=== PATIENT | female | born 1985 | race African-American/Black ===

== ENCOUNTER 2017-10-13 00:25 | Emergency (ER) | payer OTHER ==
[~2017-10-13] VITALS: Ht 157.5 cm; Wt 77.1 kg
[~2017-10-13 00:25] MED LIST: ACCUNEB SO1.25 MG/1; ACETAMINOPHEN-1 EAC1; AMOXICILLIN 50500 MG PO; AZITHROMYCIN 2250 MG PO; BACTRIM DS TAB1 EACH PO; DIFLUCAN150 MG PO; DOXYCYCLINE 10100 MG PO; ERY-TAB500 MG PO; EXCEDRIN SINUS1 EAC2; FLEXERIL PO; IBUPROFEN 200200 M1; IBUPROFEN 600600 M1 PO; IBUPROFEN 800800 M1 PO; IBUPROFEN 800800 MG PO; LIDODERM 5%1 PATCH TOP; LORTAB 5 MG/5001 TAB PO; MEDROLDOSEPACK PO; NAPROSYN500 MG PO; NOHOMEMEDICATIONS; NORCO 10-325 T1 EACH PO; NORCO 5-325 TA1 EACH PO; NORFLEX100 MG PO; PENICILLIN V P500 MG PO; PENICILLIN VK250 MG PO; PENICILLIN VK500 M1 PO; PERCOCET 5-3251 EACH PO; PERCOCET 7.5-51 EACH PO; PROAIR HFA8.5 GM IH; SUMYCIN 500500 MG PO; TESSALON200 MG PO; ZANTAC 150MG T150 M1 PO; ZPAK PO
[2017-10-13] MEDS ORDERED: BACTRIM DS TAB1 EACH PO (00:38)
[2017-10-13] MEDS ORDERED: LIORESAL 10 MG10 MG PO (00:39)
[2017-10-13] MEDS ORDERED: NORTRIPTYLINE H10 M1 (00:39)
[2017-10-13] MEDS ORDERED: GABAPENTIN 100100 MG PO (00:40)
[2017-10-13] MEDS ORDERED: AUGMENTIN 500-1 EACH PO (01:15)
[2017-10-13] MEDS ORDERED: PERCOCET PO (01:15)
[2017-10-13 02:07] VITALS: BP 151/94
== END 2017-10-13 02:19 | disposition home or self-care (01) ==
LOC: ER 00:25
DX: N39.0 Urinary tract infection, site not specified (principal); G89.29 Other chronic pain; M54.9 Dorsalgia, unspecified; T83.518A Infection and inflammatory reaction due to other urinary catheter, initial encounter; J45.909 Unspecified asthma, uncomplicated; F17.210 Nicotine dependence, cigarettes, uncomplicated; Z88.1 Allergy status to other antibiotic agents; Z88.6 Allergy status to analgesic agent; Y84.8 Other medical procedures as the cause of abnormal reaction of the patient, or of later complication, without mention of misadventure at the time of the procedure; Y92.89 Other specified places as the place of occurrence of the external cause

== ENCOUNTER 2017-11-27 16:48 | Inpatient (IN) | payer OTHER ==
[~2017-11-27] VITALS: Ht 157.5 cm; Wt 71.8 kg
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
[~2017-11-27 16:48] MED LIST changes: +AUGMENTIN 500-1 EACH PO; +GABAPENTIN 100100 MG PO; +LIORESAL 10 MG10 MG PO; +NORTRIPTYLINE H10 M1; +PERCOCET PO
[2017-11-27 17:59] LABS: URINE BILIRUBIN 1+ (Negative); URINE BLOOD TRACE (Negative); URINE CLARITY CLOUDY; URINE COLOR YELLOW; URINE GLUCOSE-RANDOM* NEGATIVE (Negative); URINE KETONES 3+ (Negative); URINE PROTEIN (DIPSTICK) 2+ (Negative)
[2017-11-27 18:02] LABS: ABSOLUTE NEUTROPHILS 3.4 thou/uL (1.4-8.2); BASOPHILS 0.9 % (0.0-2.0); EOSINOPHILS 0.9 % (0.0-3.0); HEMATOCRIT 42.7 % (37.0-47.0); HEMOGLOBIN 14.4 gm/dL (12.0-15.0); LYMPHOCYTES 36.8 % (24.0-44.0); MCH 30.6 pg (26.0-34.0); MCHC 33.7 g/dL (28.0-37.0); MCV 90.9 fL (80.0-100.0); MONOCYTES 6.7 % (1.0-8.0); PLATELET COUNT 293 thou/uL (150-400); POLYS 54.7 % (36.0-66.0); RDW 14.9 % (10.5-14.5); WBC 6.2 thou/uL (4.0-11.0)
[2017-11-27] MEDS ORDERED: VITAMIN D250000 UNIT PO (18:02)
[2017-11-27] MEDS ORDERED: CYMBALTA60 MG PO (18:02)
[2017-11-27 18:05] LABS: URINE LEUKOCYTES-REFLEX 3+ (Negative); URINE NITRITE-REFLEX POSITIVE (Negative)
[2017-11-27 18:06] LABS: ICTOTEST (BILI CONFIRMATORY) Negative (Negative)
[2017-11-27] MEDS ORDERED: WELLBUTRIN SR150 MG PO (18:06)
[2017-11-27 18:07] LABS: BACTERIA-REFLEX >30 Many /HPF (None Seen); CASTS None Seen /LPF (None Seen); SQUAMOUS None Seen /LPF (0-3); URINE RBC None Seen /HPF (0-2); URINE WBC-REFLEX >25 Many /HPF (0-5)
[2017-11-27] MEDS ORDERED: FLEXERIL PO (18:08)
[2017-11-27 18:11] LABS: CALCIUM 8.8 mg/dL (8.5-10.1); CREATININE 0.5 mg/dL (0.6-1.0)
[2017-11-27 18:14] LABS: AMP/METHAMP Negative (Negative); BARBITURATES Negative (Negative); BENZODIAZEPINES POSITIVE (Negative); COCAINE Negative (Negative); METHADONE Negative (Negative); OPIATES Negative (Negative); PCP Negative (Negative)
[2017-11-27 18:16] LABS: TRIPLE PHOSPHATE CRYSTALS >10 Many /LPF (None Seen)
[2017-11-27 18:18] LABS: ALBUMIN 3.8 g/dL (3.4-5.0); TOTAL BILIRUBIN 0.7 mg/dL (<0.1-1.0)
[2017-11-27 21:12] VITALS: BP 104/72
[2017-11-27 21:33] VITALS: BP 139/90
[2017-11-28 00:17] VITALS: BP 105/72
[2017-11-28 03:14] VITALS: BP 107/77
[2017-11-28 04:04] LABS: CALCIUM 8.3 mg/dL (8.5-10.1); CREATININE 0.4 mg/dL (0.6-1.0)
[2017-11-28 04:13] LABS: POTASSIUM 2.9 mmol/L (3.5-5.1)
[2017-11-28 17:58] VITALS: BP 106/74
[2017-11-28 20:00] VITALS: BP 124/83
[2017-11-29 04:16] VITALS: BP 139/100
[2017-11-29 05:04] LABS: HEMATOCRIT 38.8 % (37.0-47.0); HEMOGLOBIN 12.6 gm/dL (12.0-15.0); MCH 29.8 pg (26.0-34.0); MCHC 32.4 g/dL (28.0-37.0); RBC 4.21 mil/uL (4.20-5.00); RDW 14.6 % (10.5-14.5); WBC 4.6 thou/uL (4.0-11.0)
[2017-11-29 05:24] LABS: ALBUMIN 2.9 g/dL (3.4-5.0); CALCIUM 8.2 mg/dL (8.5-10.1); CREATININE 0.6 mg/dL (0.6-1.0); POTASSIUM 3.7 mmol/L (3.5-5.1); TOTAL BILIRUBIN 0.3 mg/dL (<0.1-1.0); TOTAL PROTEIN 7.5 g/dL (6.4-8.2)
[2017-11-29 06:55] VITALS: BP 124/70
[2017-11-29 15:15] VITALS: BP 112/68
[2017-11-29 20:00] VITALS: BP 132/94; BP 134/103
[2017-11-30 01:00] VITALS: BP 132/94
[2017-11-30 03:46] VITALS: BP 142/102
[2017-11-30 05:43] LABS: HEMATOCRIT 36.1 % (37.0-47.0); HEMOGLOBIN 11.9 gm/dL (12.0-15.0); MCH 30.4 pg (26.0-34.0); RBC 3.93 mil/uL (4.20-5.00); RDW 14.5 % (10.5-14.5); WBC 3.9 thou/uL (4.0-11.0)
[2017-11-30 06:06] LABS: ALBUMIN 2.7 g/dL (3.4-5.0); CALCIUM 7.9 mg/dL (8.5-10.1); CREATININE 0.3 mg/dL (0.6-1.0); POTASSIUM 3.7 mmol/L (3.5-5.1); TOTAL BILIRUBIN 0.3 mg/dL (<0.1-1.0); TOTAL PROTEIN 6.3 g/dL (6.4-8.2)
[2017-11-30 07:34] VITALS: BP 132/97
[2017-11-30 15:55] VITALS: BP 121/83
[2017-11-30 19:00] VITALS: BP 109/88
[2017-12-01 04:13] VITALS: BP 130/87
[2017-12-01 04:39] LABS: CALCIUM 8.5 mg/dL (8.5-10.1); CREATININE 0.5 mg/dL (0.6-1.0); MAGNESIUM 2.2 mg/dL (1.8-2.4); POTASSIUM 3.5 mmol/L (3.5-5.1)
[2017-12-01 04:48] LABS: ABSOLUTE NEUTROPHILS 1.8 thou/uL (1.4-8.2); BASOPHILS 0.4 % (0.0-2.0); EOSINOPHILS 1.9 % (0.0-3.0); HEMATOCRIT 35.4 % (37.0-47.0); HEMOGLOBIN 11.6 gm/dL (12.0-15.0); LYMPHOCYTES 45.8 % (24.0-44.0); MCH 30.3 pg (26.0-34.0); MCHC 32.8 g/dL (28.0-37.0); MCV 92.4 fL (80.0-100.0); MONOCYTES 8.5 % (1.0-8.0); PLATELET COUNT 209 thou/uL (150-400); POLYS 43.4 % (36.0-66.0); RBC 3.83 mil/uL (4.20-5.00); RDW 14.4 % (10.5-14.5); WBC 4.1 thou/uL (4.0-11.0)
[2017-12-01 06:35] LABS: LARGE PLATELETS FEW
[2017-12-01 08:59] VITALS: BP 123/85
[2017-12-01 18:18] VITALS: BP 140/113
[2017-12-01 18:19] VITALS: BP 158/117
[2017-12-01 18:58] VITALS: BP 136/92
[2017-12-01 19:15] VITALS: BP 143/87
[2017-12-02 04:00] VITALS: BP 123/82
[2017-12-02 08:32] VITALS: BP 120/86
[2017-12-02 19:14] VITALS: BP 103/71
[2017-12-03 03:35] VITALS: BP 112/80
[2017-12-03 04:14] LABS: ABSOLUTE NEUTROPHILS 2.3 thou/uL (1.4-8.2); EOSINOPHILS 2.8 % (0.0-3.0); HEMATOCRIT 40.6 % (37.0-47.0); HEMOGLOBIN 13.3 gm/dL (12.0-15.0); MCH 30.3 pg (26.0-34.0); MCHC 32.8 g/dL (28.0-37.0); MCV 92.3 fL (80.0-100.0); MONOCYTES 6.3 % (1.0-8.0); PLATELET COUNT 254 thou/uL (150-400); POLYS 39.9 % (36.0-66.0); RDW 14.7 % (10.5-14.5); WBC 5.9 thou/uL (4.0-11.0)
[2017-12-03 04:26] LABS: CALCIUM 9.1 mg/dL (8.5-10.1); CREATININE 0.6 mg/dL (0.6-1.0); MAGNESIUM 1.7 mg/dL (1.8-2.4); PHOSPHORUS 5.5 mg/dL (2.5-4.9); POTASSIUM 4.3 mmol/L (3.5-5.1); TOTAL BILIRUBIN 0.3 mg/dL (<0.1-1.0); TOTAL PROTEIN 7.6 g/dL (6.4-8.2)
[2017-12-03 07:59] VITALS: BP 116/83
[2017-12-03 16:33] VITALS: BP 114/82
[2017-12-03 18:54] VITALS: BP 111/75
[2017-12-04 08:22] LABS: ABSOLUTE NEUTROPHILS 3.7 thou/uL (1.4-8.2); BASOPHILS 0.7 % (0.0-2.0); EOSINOPHILS 2.4 % (0.0-3.0); HEMATOCRIT 41.8 % (37.0-47.0); HEMOGLOBIN 13.7 gm/dL (12.0-15.0); LYMPHOCYTES 38.3 % (24.0-44.0); MCH 30.1 pg (26.0-34.0); MCHC 32.8 g/dL (28.0-37.0); MCV 91.5 fL (80.0-100.0); MONOCYTES 7.4 % (1.0-8.0); PLATELET COUNT 269 thou/uL (150-400); POLYS 51.2 % (36.0-66.0); RBC 4.57 mil/uL (4.20-5.00); RDW 14.6 % (10.5-14.5); WBC 7.2 thou/uL (4.0-11.0)
[2017-12-04 08:27] VITALS: BP 114/84
[2017-12-04 08:34] LABS: ALBUMIN 3.1 g/dL (3.4-5.0); CALCIUM 8.6 mg/dL (8.5-10.1); CREATININE 0.5 mg/dL (0.6-1.0); MAGNESIUM 2.2 mg/dL (1.8-2.4); POTASSIUM 4.3 mmol/L (3.5-5.1); TOTAL BILIRUBIN 0.4 mg/dL (<0.1-1.0); TOTAL PROTEIN 8.1 g/dL (6.4-8.2)
[2017-12-04 16:17] VITALS: BP 108/83
[2017-12-04 18:59] VITALS: BP 94/73
[2017-12-05 05:59] VITALS: BP 90/69
[2017-12-05 07:58] VITALS: BP 131/88
[2017-12-05 15:38] VITALS: BP 125/85
[2017-12-05 20:00] VITALS: BP 118/80
[2017-12-06 04:30] VITALS: BP 111/77
[2017-12-06 06:55] LABS: ABSOLUTE NEUTROPHILS 2.5 thou/uL (1.4-8.2); BASOPHILS 0.6 % (0.0-2.0); EOSINOPHILS 2.5 % (0.0-3.0); HEMATOCRIT 41.1 % (37.0-47.0); HEMOGLOBIN 13.6 gm/dL (12.0-15.0); LYMPHOCYTES 47.7 % (24.0-44.0); MCH 30.6 pg (26.0-34.0); MCHC 33.1 g/dL (28.0-37.0); MCV 92.3 fL (80.0-100.0); MONOCYTES 7.2 % (1.0-8.0); PLATELET COUNT 259 thou/uL (150-400); RBC 4.45 mil/uL (4.20-5.00); RDW 14.6 % (10.5-14.5); WBC 5.9 thou/uL (4.0-11.0)
[2017-12-06 07:00] VITALS: BP 115/53
[2017-12-06 07:21] LABS: ALBUMIN 3.2 g/dL (3.4-5.0); CREATININE 0.5 mg/dL (0.6-1.0); MAGNESIUM 2.1 mg/dL (1.8-2.4); POTASSIUM 3.9 mmol/L (3.5-5.1); TOTAL BILIRUBIN 0.4 mg/dL (<0.1-1.0); TOTAL PROTEIN 8.4 g/dL (6.4-8.2)
[2017-12-06 19:40] VITALS: BP 109/81
[2017-12-07 05:30] VITALS: BP 126/88
[2017-12-07 07:00] VITALS: BP 120/86
[2017-12-07 16:29] VITALS: BP 117/79
[2017-12-07 19:04] VITALS: BP 122/78
[2017-12-08 04:00] VITALS: BP 107/77
[2017-12-08 07:10] VITALS: BP 113/75
[2017-12-08 15:07] VITALS: BP 111/77
[2017-12-08 19:07] VITALS: BP 116/89
[2017-12-09 05:00] VITALS: BP 109/77
[2017-12-09 06:07] LABS: ABSOLUTE NEUTROPHILS 2.1 thou/uL (1.4-8.2); BASOPHILS 0.7 % (0.0-2.0); EOSINOPHILS 2.4 % (0.0-3.0); HEMATOCRIT 35.4 % (37.0-47.0); HEMOGLOBIN 11.8 gm/dL (12.0-15.0); LYMPHOCYTES 44.4 % (24.0-44.0); MCH 30.4 pg (26.0-34.0); MCHC 33.2 g/dL (28.0-37.0); MCV 91.6 fL (80.0-100.0); MONOCYTES 9.3 % (1.0-8.0); PLATELET COUNT 266 thou/uL (150-400); POLYS 43.2 % (36.0-66.0); RBC 3.87 mil/uL (4.20-5.00); RDW 14.3 % (10.5-14.5); WBC 4.9 thou/uL (4.0-11.0)
[2017-12-09 06:22] LABS: ANION GAP 10 mmol/L (7-16); BUN < 1 mg/dL (7-18); CALCIUM 8.8 mg/dL (8.5-10.1); CHLORIDE 103 mmol/L (98-107); CO2 25 mmol/L (21-32); CREATININE 0.4 mg/dL (0.6-1.0); GLUCOSE 97 mg/dL (74-106); POTASSIUM 3.7 mmol/L (3.5-5.1); SODIUM 138 mmol/L (136-145)
[2017-12-09 07:02] VITALS: BP 114/73
[2017-12-09] MEDS ORDERED: CYMBALTA30 MG PO (14:55)
[2017-12-09] MEDS ORDERED: B-12 DOTS500 MCG PO (14:55)
[2017-12-09] MEDS ORDERED: BANOPHEN25 M1 PO (14:55)
[2017-12-09] MEDS ORDERED: GABAPENTIN 100100 MG PO (14:55)
[2017-12-09] MEDS ORDERED: LOPERAMIDE 2 MG2 M1 PO (14:55)
[2017-12-09] MEDS ORDERED: TUMS PO (14:55)
[2017-12-09] MEDS ORDERED: PERCOCET PO (14:55)
[2017-12-09] MEDS ORDERED: MELATONIN5 M1 PO (14:55)
[2017-12-09] MEDS ORDERED: OXYCODONE HCL10 MG PO (14:55)
[2017-12-09] MEDS ORDERED: MAG6464 MG PO (14:55)
[2017-12-09] MEDS ORDERED: FIRVANQ50 MG/1 ML PO (14:55)
[2017-12-09 14:58] VITALS: BP 125/79
== END 2017-12-09 18:38 | DRG 871 ==
LOC: ER 16:48 → EROBS 19:31 → 4E 19:31
PROVIDERS: Emergency Medicine; Hospitalist; Nurse Practitioner Family
DX: A41.9 Sepsis, unspecified organism (principal); E43 Unspecified severe protein-calorie malnutrition; T83.510A Infection and inflammatory reaction due to cystostomy catheter, initial encounter; A04.72 Enterocolitis due to Clostridium difficile, not specified as recurrent; K59.2 Neurogenic bowel, not elsewhere classified; T43.012A Poisoning by tricyclic antidepressants, intentional self-harm, initial encounter; N30.90 Cystitis, unspecified without hematuria; J45.909 Unspecified asthma, uncomplicated; Y83.8 Other surgical procedures as the cause of abnormal reaction of the patient, or of later complication, without mention of misadventure at the time of the procedure; F17.210 Nicotine dependence, cigarettes, uncomplicated; N31.9 Neuromuscular dysfunction of bladder, unspecified; E87.6 Hypokalemia; E53.8 Deficiency of other specified B group vitamins; G89.29 Other chronic pain; M54.9 Dorsalgia, unspecified; F43.23 Adjustment disorder with mixed anxiety and depressed mood; K59.03 Drug induced constipation; T40.605A Adverse effect of unspecified narcotics, initial encounter; Z87.828 Personal history of other (healed) physical injury and trauma; Z86.14 Personal history of Methicillin resistant Staphylococcus aureus infection; Z89.511 Acquired absence of right leg below knee; Z87.81 Personal history of (healed) traumatic fracture; Z79.899 Other long term (current) drug therapy; Z88.1 Allergy status to other antibiotic agents; Z88.8 Allergy status to other drugs, medicaments and biological substances; Y92.89 Other specified places as the place of occurrence of the external cause
CPT/HCPCS: 10084

== ENCOUNTER 2017-12-27 00:12 | Emergency (ER) | payer OTHER ==
[~2017-12-27] VITALS: Ht 157.5 cm; Wt 77.1 kg
[~2017-12-27 00:12] MED LIST changes: +B-12 DOTS500 MCG PO; +BANOPHEN25 M1 PO; +CYMBALTA30 MG PO; +CYMBALTA60 MG PO; +FIRVANQ50 MG/1 ML PO; +LOPERAMIDE 2 MG2 M1 PO; +MAG6464 MG PO; +MELATONIN5 M1 PO; +OXYCODONE HCL10 MG PO; +TUMS PO; +VITAMIN D250000 UNIT PO; +WELLBUTRIN SR150 MG PO
[2017-12-27 01:46] LABS: HEMATOCRIT 37.2 % (37.0-47.0); HEMOGLOBIN 12.3 gm/dL (12.0-15.0); MCH 30.2 pg (26.0-34.0); MCV 91.7 fL (80.0-100.0); RBC 4.06 mil/uL (4.20-5.00); RDW 14.4 % (10.5-14.5); WBC 6.9 thou/uL (4.0-11.0)
[2017-12-27 01:54] LABS: CALCIUM 8.9 mg/dL (8.5-10.1); CREATININE 0.4 mg/dL (0.6-1.0); POTASSIUM 4.2 mmol/L (3.5-5.1)
[2017-12-27 02:48] LABS: URINE BILIRUBIN NEGATIVE (Negative); URINE BLOOD 3+ (Negative); URINE CLARITY SL CLOUDY; URINE COLOR YELLOW; URINE GLUCOSE-RANDOM* NEGATIVE (Negative); URINE KETONES NEGATIVE (Negative); URINE LEUKOCYTES 3+ (Negative); URINE NITRITE POSITIVE (Negative); URINE PROTEIN (DIPSTICK) TRACE (Negative); URINE UROBILINOGEN 0.2 E.U./dl (0.2-1.0)
[2017-12-27 03:04] LABS: CASTS None Seen /LPF (None Seen); CRYSTALS None Seen /LPF (None Seen); MUCUS 4-6 Moderate strn/LPF (None Seen); SQUAMOUS 0-3 Few /LPF (0-3); URINE RBC >20 Many /HPF (0-2); URINE WBC >25 Many /HPF (0-5); WBC CLUMPS Few (None Seen)
== END 2017-12-27 00:52 | disposition home or self-care (01) ==
LOC: ER 00:12
PROVIDERS: Emergency Medicine
DX: T83.098A Other mechanical complication of other urinary catheter, initial encounter (principal); M54.9 Dorsalgia, unspecified; G89.4 Chronic pain syndrome; F17.210 Nicotine dependence, cigarettes, uncomplicated; J45.909 Unspecified asthma, uncomplicated; F32.9 Major depressive disorder, single episode, unspecified; Z88.6 Allergy status to analgesic agent; Z88.1 Allergy status to other antibiotic agents; Y84.6 Urinary catheterization as the cause of abnormal reaction of the patient, or of later complication, without mention of misadventure at the time of the procedure; Y92.89 Other specified places as the place of occurrence of the external cause

== ENCOUNTER 2018-06-24 03:06 | Inpatient (IN) | payer OTHER ==
[~2018-06-24] VITALS: Ht 157.5 cm; Wt 88.9 kg
[2018-06-24] VITALS (8 sets, daily range): BP systolic 87–126; BP diastolic 51–80
[2018-06-24] MEDS ORDERED: BENADRYL25 MG PO (03:17)
[2018-06-24] MEDS ORDERED: DIPHENHIST50 MG PO (03:18)
[2018-06-24] MEDS ORDERED: UNICOMPLEX M TA1 TA1 PO (03:19)
[2018-06-24] MEDS ORDERED: NEURONTIN 400400 M1 PO (03:19)
[2018-06-24] MEDS ORDERED: NYAMYC15 GM TOP (03:20)
[2018-06-24] MEDS ORDERED: OXYCODONE HCL10 MG PO (03:21)
[2018-06-24] MEDS ORDERED: MIRALAX17 GM PO (03:21)
[2018-06-24] MEDS ORDERED: TYLENOL EXTRA500 MG PO (03:22)
[2018-06-24] MEDS ORDERED: VITAMIN D3400 UNIT PO (03:23)
[2018-06-24] MEDS ORDERED: UNGUENTINE OINT28 GM TOP (03:24)
[2018-06-24] MEDS ORDERED: AMBIEN 5 MG TABL5 M1 PO (03:24)
[2018-06-24 03:44] LABS: HEMATOCRIT 39.2 % (37.0-47.0); MCH 28.9 pg (26.0-34.0); MCHC 33.2 g/dL (28.0-37.0); MCV 86.8 fL (80.0-100.0); PLATELET COUNT 241 thou/uL (150-400); RBC 4.51 mil/uL (4.20-5.00); RDW 14.4 % (10.5-14.5); WBC 13.7 thou/uL (4.0-11.0)
[2018-06-24 03:52] LABS: CALCIUM 8.7 mg/dL (8.5-10.1); CREATININE 0.5 mg/dL (0.6-1.0); POTASSIUM 3.6 mmol/L (3.5-5.1)
[2018-06-24 03:58] LABS: ALBUMIN 2.8 g/dL (3.4-5.0); TOTAL BILIRUBIN 1.7 mg/dL (<0.1-1.0); TOTAL PROTEIN 8.7 g/dL (6.4-8.2)
[2018-06-24 04:26] LABS: URINE BILIRUBIN 2+ (Negative); URINE BLOOD TRACE (Negative); URINE CLARITY CLEAR; URINE COLOR YELLOW; URINE GLUCOSE-RANDOM* TRACE (Negative); URINE KETONES TRACE (Negative); URINE NITRITE-REFLEX POSITIVE (Negative); URINE PROTEIN (DIPSTICK) 2+ (Negative)
[2018-06-24 04:27] LABS: URINE LEUKOCYTES-REFLEX 3+ (Negative)
[2018-06-24 04:42] LABS: SQUAMOUS 0-3 Few /LPF (0-3); WBC CLUMPS Many (None Seen)
[2018-06-24 04:43] LABS: BACTERIA-REFLEX >30 Many /HPF (None Seen); MUCUS 0-3 Light strn/LPF (None Seen); TRIPLE PHOSPHATE CRYSTALS >10 Many /LPF (None Seen); URINE RBC 0-2 Rare /HPF (0-2)
[2018-06-24 04:56] LABS: ABSOLUTE NEUTROPHILS 11.4 thou/uL (1.4-8.2)
[2018-06-24 04:57] LABS: LARGE PLATELETS FEW; PLATELET ESTIMATE NORMAL; POLYCHROMASIA 1+
--- NOTE | 2018-06-24 05:40 | NUR ---
NOTIFIED NURSEJOCELINE AT NURSING FACILITY THAT PATIENT WILL BE ADMITTED
[2018-06-24] MEDS ORDERED: TUMS PO (06:16)
--- NOTE | 2018-06-24 07:42 | NUR ---
PT ADMITTED FROM ED WITH UTI AND SEPSIS.ARRIVED TO UNIT VIA CART.PT A.OX4 SEEMS VERY DROWSY BUT EASY TO AROUSE,RESPONDS TO COMMANDS APPROPRIATELY.VSS.IVF AND ABT INFUSING PER ORDERS.PT ORIENTED TO RM AND UNIT ACTIVITIES.MEDS RECONCILLED.ENVIRONMENTAL CONSULTANT HERE TO SEE THE PT.WILL CONT TO MONITOR PER ORDERS.
--- NOTE | 2018-06-24 17:04 | NUR ---
Case opened for dc planning. Pt is a ltc resident at [facility]. They are holding her bed and can accept her for readmission when medically stable. 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 She is being seen by wound care. Will check with the SNF to see if she needs therapy evals and has any skilled medicare days upon her return.
--- NOTE | 2018-06-24 18:23 | NUR ---
PT CARE ASSUMED APPROX 0700. PT ALERT AND ORIENTED X4. DENIES SOA. C/O LOWER BACK PAIN 11/17 INTERMITTENTLY THIS SHIFT. PAIN MANAGED WITH OXY AND FENT GIVEN WITH DRESSING CHANGE AND WOUND PIC. VSS. PT HAS UTI AND IV ABT ON POC. IVF WELL. RIGHT IT WOUND DRESSING CHANGES PER ORDER. PT REQUESTS HELP OFTEN TO REPOSITION. PRESSURE BOOT PLACED. LALM INITIATED. MRI TO BE DONE TOMORROW TO R/O OSTEO. APPETITE POOR. NO DISTRESS NOTED.
--- NOTE | 2018-06-25 03:50 | NUR ---
ASSESSMENT DOCUMENTED.PT RESTING AT THIS TIME IN NAD.A/OX4.VSS.CONT WITH ABT THERAPY,TOLERATING.DRESSING TO WOUND CDI.SINUS TACHY ON MONITOR.PT CONTINUES TO C/O BACK PAINS THAT ARE CONTROLLED WITH PAIN MEDS Q4H.REPOSITIONED IN BED SEVERAL TIMES.PRESSURE BOOTS ON,RAFAT IN PLACE .POC IS TO HAVE MRI DONE TODAY AND CONT WITH CURRENT TX ORDERS.
[2018-06-25 05:30] VITALS: BP 104/60
[2018-06-25 07:46] VITALS: BP 104/64
--- NOTE | 2018-06-25 08:22 | NUR ---
WOUND CONSULT: PT. WAS SEEN ON 06/24/[address] MAXWELL AND MYSELF. PT. HAS STAGE 4 PRESSURE ULCER TO HER RIGHT ISCHIAL TUBEROSITY. WOUND HAS A FOUL ODOR NOTED WITH SIGNS AND SYMPTOMS OF INFECTION PRESENT. DR. MAXWELL DISCUSSED TREATMENT OPTIONS WITH PT. REGARDING IV ANTIBOTICS, OFFLOADING, TOPICAL WOUND CARE AND SURGICAL DEBRIDEMENT. PT. WAS AGREEABLE. RECOMMENDATIONS: WOUND CARE TO RIGHT ISCHIAL TUBEROSITY: GENTLY CLEANSE AREA WITH WOUND CLEANSER OR NORMAL SALINE, PACK WITH DAKIN MOIST KERLIX, COVER WITH ABD, SECURE WITH TAPE, COMPLETE CARES BID. TURN Q2 HOURS KEEP PT. OFF WOUNDS MUCH POSSIBLE KEEP ON RAFAT MATRESS. PT. AND STAFF NURSE WERE INSTRUCTED ON PLAN OF CARE.
[2018-06-25 10:57] VITALS: BP 93/60
--- NOTE | 2018-06-25 11:20 | NUR ---
Nutrition: pt admit with UTI, sepsis, hx paraplegia. Consult due to stage 4 pressure ulcer right ischium/buttock. Reports appetite is fair and states she "is picky". Obtained food preferences and assisted to order lunch. Pt should be able to order meals from here on. No weight loss. Reviewed protein needs and adequate nutrition for wound healing. Pt agrees to Jesse BID. Place as low nutrition risk for now.
--- NOTE | 2018-06-25 12:15 | NUR ---
[facility] car[facility] called back and reports that the pt does have skilled medicare days available for the pt's return. Will check for therapy evals and await wound care recommendations. MRI pending to r/o osteo. Pt may be an ltac candidate as well pending her plan of care.
--- NOTE | 2018-06-25 13:52 | NUR ---
FAXED PT/OT AND WOUND CARE NOTES TO MIS MCCONNELL AT [facility]. SHE RECEIVED UPDATES. DCP TO FOLLOW.
--- NOTE | 2018-06-25 16:50 | NUR ---
WOUND FOLLOW UP: PT. WAS SEEN TODAY BY DR. MAXWELL AND MYSELF. PT. WOUND IS NON-CHANGING AT THIS TIME. AWAITING SUGICAL INTERVENTION. RECOMMENDATIONS: CONTINUE WITH CURRENT PLAN OF CARE. PT. AND STAFF NURSE WERE INSTRUCTED ON PLAN OF CARE.
[2018-06-25 17:26] VITALS: BP 102/63
--- NOTE | 2018-06-25 18:19 | NUR ---
PT CARE ASSUMED APPROX 0700. PT ALERT AND ORIENTED X4. DENIES SOA. C/O 11/17 PAIN TO LOWER BACK. MANAGING PAIN WITH FENT AND OXY. TURNING PT Q2HRS AND PRN. APPETITE POOR. EDUCATED ON NUTRITION AND WOUNDS. PIVs INFILTRATED X2. PICC LINE ORDER OBTAINED. VANCO AND PIPERCILLIN REMAIN TO POC. TROUGH LOW. PHARMACY NOTIFIED. NO DISTRESS NOTED. VSS.
--- NOTE | 2018-06-25 18:44 | NUR ---
SPC CATH CHANGED OUT FOR SAME BERMUDIAN AND BALLOON SIZE. NO ISSUES DURING PLACEMENT.
[2018-06-25 19:49] VITALS: BP 105/57
--- NOTE | 2018-06-25 21:42 | NUR ---
VASCULAR ACCESS CONSULTED FOR A PICC FOR YANN AND LUCIO, PT CONSENTED AND LINE PLACED PER HOSP P&P, SEE INSERTION NI FOR DETAILS
[2018-06-26 04:18] VITALS: BP 104/72
--- NOTE | 2018-06-26 05:17 | NUR ---
ASSESSMENTS CHARTED. PICC LINE WAS PLACED AT START OF SHIFT SINGLE LUMEN INR RIGHT UPPER ARM. C/O CHRONIC BACK PAIN DOSED CHARTED. REFUSED SCHEDULED TYLENOL. PLAN OF CARE TO INCLUDE SURGICAL DEBRIDMENT OF WOUND.
[2018-06-26 08:00] VITALS: BP 115/63
[2018-06-26 13:00] VITALS: BP 109/73
[2018-06-26 16:00] VITALS: BP 104/57
--- NOTE | 2018-06-26 17:06 | NUR ---
PT CARE ASSUMED APPROX 0700. PT ALERT AND ORIENTED X4. DENIES SOA. C/O LOWER BACK PAIN 12/18. PAIN MANAGED WITH OXY. VSS. PT IS SELF TURN Q2HRS. UP TO W/C THIS SHIFT. HAD SHOWER. WOUND CARE DONE PER ORDER. THICK WHITE VAGINAL SECRETIONS NOTED. DR FLEMING ORDERED DIFLUCAN. SPC PATENT. POOR APPETITE. NO DISTRESS NOTED.
[2018-06-26 20:30] VITALS: BP 114/71
[2018-06-27] VITALS (7 sets, daily range): BP systolic 105–128; BP diastolic 65–73
--- NOTE | 2018-06-27 04:24 | NUR ---
ASSESSMENTS CHARTED. UA RESULTS CAME BACK. PT POSSITIVE FOR PROVIDENCIA RETTGERI. PLAN OF CARE IS TO HAVE COLOSTOMY SURGERY NEXT WEEK WHICH WILL ALLOW PT TO CONTROL HER OWN CARE AND HELP HER PRESSURE WOUND HEAL.
[2018-06-27 05:19] LABS: HEMATOCRIT 31.5 % (37.0-47.0); HEMOGLOBIN 10.5 gm/dL (12.0-15.0); MCH 29.1 pg (26.0-34.0); MCHC 33.4 g/dL (28.0-37.0); RBC 3.62 mil/uL (4.20-5.00); RDW 14.3 % (10.5-14.5); WBC 6.1 thou/uL (4.0-11.0)
[2018-06-27 05:39] LABS: ALBUMIN 1.7 g/dL (3.4-5.0); CALCIUM 8.5 mg/dL (8.5-10.1); CREATININE 0.3 mg/dL (0.6-1.0); PHOSPHORUS 4.2 mg/dL (2.5-4.9)
[2018-06-27 05:42] LABS: POTASSIUM 2.8 mmol/L (3.5-5.1)
--- NOTE | 2018-06-27 09:05 | NUR ---
PT ASSESSED BY JANICEY AND WILL BE PLACED ON CLEAR LIQUID DIET.
--- NOTE | 2018-06-27 12:41 | NUR ---
ENCOURAGE PT TO TAKE IN MORE PO FOOD. REPLACE POTASSIUM AND WILL RECHECK.
--- NOTE | 2018-06-27 13:23 | NUR ---
DRESSING CHANGED WITH DR. ROBERSON AT BEDSIDE.
--- NOTE | 2018-06-27 19:14 | NUR ---
PT WAS UP TO SIDE OF BED TO TANSFER TO WHEELCHAIR SHE WAS INSITING TO BE PLACED IN ONE WHEN HER MALE COUSIN CAME TO VISIT THIS WAS AROUND 1840. SHE INFORMED ME THAT SHE GETS TO THE WHEELCHAIR ALL THE TIME BY HERSELF AND WITH ONE PERSON ASSIST. GET PT TO SIDE OF BED A PT TRNASFER TO WHEELCHAIR AND I INFORMED HER THAT I WOULD STOP AND NEED TO GET MORE HELP AND INFORMED HER THAT I WOULD LAY HER BACK UNTIL I COULD RETURN WITH MORE HELD. SHE REFUSED AND HAD HER MALE COUSIN STAY WITH HER IN THE SITTING POSITION AT THE SIDE OF THE BED. I INFORMED THEM NOT TO TRY AND GET IN WHEELCHAIR UNTIL I RETURN. WHEN I DID I FOUND PT SITTING ON FLOOR AND HER MALE COUSIN INFORMED ME THAT THEY TRIED TO GET TO WHEELCHAIR AND HE ENDED UP SLIDING PT TO FLOOR IN THE SITTING POSITION. PT WAS ALERT AND ORIENTED AT THIS TIME WITH GCS OF 15. NO INJURY NOTED AND DR. FLEMING AND NURSING MORTGAGE LOAN SPECIALIST NOTED.
[2018-06-28 03:54] VITALS: BP 114/73
[2018-06-28 04:26] LABS: ALBUMIN 1.8 g/dL (3.4-5.0); CALCIUM 8.5 mg/dL (8.5-10.1); CREATININE 0.4 mg/dL (0.6-1.0); PHOSPHORUS 4.5 mg/dL (2.5-4.9); POTASSIUM 3.4 mmol/L (3.5-5.1)
--- NOTE | 2018-06-28 07:53 | NUR ---
ASSESSMENTS CHARTED. PT NOW ON CLEAR LIQUID DIET IN PREP FOR DEBRIDMENT SURGERY TOMORROW. CHRONIC PAIN. NO ADDITIONAL PAIN FROM PREVIOUS ASSISTED FALL.
[2018-06-28 08:04] VITALS: BP 105/74
[2018-06-28 12:32] VITALS: BP 119/78
--- NOTE | 2018-06-28 16:31 | NUR ---
WOUND FOLLOW UP: PT. WAS SEEN TODAY BY DR. MAXWELL AND MYSELF. PT. WOUND IS NON-CHANGING AT THIS TIME. AWAITING SURGICAL INTERVENTION. PLAN FOR OR TOMORROW. RECOMMENDATIONS: CONTINUE WITH CURRENT PLAN OF CARE. PT. AND STAFF NURSE WERE INSTRUCTED ON PLAN OF CARE.
[2018-06-28 16:42] VITALS: BP 125/83
--- NOTE | 2018-06-28 17:25 | NUR ---
ASSESSMENTS COMPLETED AND DOCUMENTED. NO S/SX OF CARDIAC OR RESP DISTRESS. NO COMPLAINTS VOICED. PT ATE WELL. O2 94 ON RA. PT SAT IN CHAIR FOR MOST OF DAY. WILL CONTINUE TO MONITOR.
[2018-06-28 20:22] VITALS: BP 121/80
--- NOTE | 2018-06-28 23:58 | NUR ---
PT CARE ASSUMED APPROX 1900. PT ALERT AND ORIENTED X4. DENIES SOA. C/O LOWER BACK PAIN 12/18. PAIN MANAGED WITH OXY. VSS. WOUND CARE DONE TO RIT PER DR ORDER. TURNING PT Q2 HRS AND PRN. NO DISTRESS NOTED. PT CARE TO BE TRANSFERRED TO ONCOMING NURSE AT 0100.
[2018-06-29 04:04] LABS: CALCIUM 8.6 mg/dL (8.5-10.1); CREATININE 0.5 mg/dL (0.6-1.0); POTASSIUM 3.6 mmol/L (3.5-5.1)
[2018-06-29 04:28] VITALS: BP 112/64
--- NOTE | 2018-06-29 06:46 | NUR ---
ASSUMED PT CARE AT 0115. PT LYING ON LEFT SIDE, DID REFUSE TURNS THROUGHOUT THE NIGHT. DID STATE THAT SHE DOES TURN THROUGHOUT THE DAY TIME HOURS. FENTANYL X2 AND OXYCODONE X1 FOR BACK PAIN. NPO EXCEPT FOR SIP OF WATER WITH PAIN MEDICATION.
[2018-06-29 07:18] VITALS: BP 115/81
[2018-06-29 10:37] VITALS: BP 118/73
--- NOTE | 2018-06-29 10:42 | NUR ---
sobia sent updates to Maria A at [facility], per Maria A's request.
[2018-06-29 15:40] VITALS: BP 107/78
--- NOTE | 2018-06-29 15:48 | NUR ---
ASSESSMENTS COMPLETED AND DOCUMENTED. NO S/SX OF CARDIAC OR RESP DISTRESS. PT WAS OFF FLOOR IN SURGERY FROM 0940 TO 1530. PT AWAKE BUT DROWSY, COMPLAINING OF PAIN. PO AND IV PAIN MED GIVEN BEFORE TRANSFERING BACK TO UNIT. WILL CONTINUE TO MONITOR PER ORDERS.
[2018-06-29 20:00] VITALS: BP 93/55
--- NOTE | 2018-06-30 03:57 | NUR ---
ASSUME CARE AT 1900. PT ALERT AND ORIENTED. STATUS POST WOUND DEBRIDMENT AND NEW COLOSTOMY. PT C/O PAIN AT THE COLOSTOMY SITE, MAKING IT HARD FOR HER TO TURN FROM ONE SIDE TO THE OTHER. PAIN ALLEVIATED MY FENTANYL AND OXYCODONE PRN. PT ALSO ON ABX FOR UTI. VITAL SIGNS STABLE. NO C/O CHEST PAIN, N/V/D. DRESSING AFTER DEBRIBMENT INTACT. WILL CONTINUE TO FOLLOW POC.
[2018-06-30 04:03] VITALS: BP 88/53
[2018-06-30 08:08] VITALS: BP 91/61
--- NOTE | 2018-06-30 08:37 | NUR ---
PT PLACED ON HOLD FROM P.T. S/P SURGICAL INTERVENTION. PT WITH ORDERS TO DECREASE SHEARING AND PRESSURE ON ISCHIAL WOUND. RECOMMEND PT BE ASSISTED WITH FREQUENT POSITION CHANGES AND USE BARTOLO LIFT TO TX INTO CHAIR/W/C IF UP IN CHAIR ORDERED/APPROVED BY PHYSICIAN.
--- NOTE | 2018-06-30 08:44 | NUR ---
DUE TO CHANGE OF STATUS WITH SURGERY, NEW PHYSICIAN ORDERS ARE NEEDED TO CONTINUE O.T. SERVICES WHEN/IF APPROPRIATE.
[2018-06-30 11:40] VITALS: BP 106/71
--- NOTE | 2018-06-30 12:08 | NUR ---
met with patient and reviewed LTAC criteria and she is candidate for LTAC referral and transition. Patient tearful with discussion, questioned if she can smoke at LTAC. Casemgt reported can inquire, patient tearful. She reports she wants to return to [facility] [place]. DC associate financial planner to cont to update facility. Plan return to [place] [facility] [place]. Left message with sister regarding dc planning.
[2018-06-30 15:35] VITALS: BP 113/64
--- NOTE | 2018-06-30 18:38 | NUR ---
ASSUMED CARE OF PT AT SHIFT CHANGE. ASSESSMENTS CHARTED. MEDS GIVEN PER JUL. PT ALERT AND ORIENTED, VSS, O2 SATS WNL ON ROOM AIR. NO S/SX OF CARDIAC OR RESP DISTRESS NOTED. DENIES CHEST PAIN. PT NSR ON MONITOR. C/O PAIN THIS SHIFT, MANAGED WITH PO AND IV PAIN MEDS. URINE OUTPUT ADEQUATE, PT HAD BM THROUGH COLOSTOMY BAG. DIET ADVANCED TO FULL LIQUIDS PER PHYSICIAN ORDERS. WOUND DRESSING CHANGED WITH WOUND CARE TEAM, Q2 TURNS ENFORCED. DENIES CONCERNS AT THIS TIME. WILL CONTINUE TO MONITOR AND FOLLOW POC.
[2018-06-30 19:22] VITALS: BP 104/67
--- NOTE | 2018-07-01 03:44 | NUR ---
Pt AO x4. vital signs stable. Assessments as documented pt is no ABX for UTI. vanco trough critically high 67 at 1930. notified pharmD, Justo, who ordered to hold the next dose of vanco until a random canco trough is completed today at 1100. pt wound dressing completed. minimal blood noted. prn meds given, see EMAR for documentation. pt report she was told she can have regular foods diet order say full liquids. notified patient that it will be clarified. good urine output from the catheter, colostomy bag also had good still output soft in consistence. no other complaints at this time. will continue to follow plan of care.
[2018-07-01 04:32] VITALS: BP 117/82
[2018-07-01 08:00] VITALS: BP 125/74
--- NOTE | 2018-07-01 15:54 | NUR ---
WOUND FOLLOW UP: PT. WAS SEEN TODAY BY DR. MAXWELL AND MYSELF. PT. IS VERY CONFUSED TODAY. WE ARE HOLDING OFF ON STARTING THE WOUND VAC AT THIS TIME UNTIL THIS IS RESOLVED. DR. PULIDO IS SEEING THIS PATIENT. RECOMMENDATIONS: CONTINUE WITH CURRENT PLAN OF CARE. PT. AND STAFF NURSE WERE INSTRUCTED ON PLAN OF CARE.
[2018-07-01 16:00] VITALS: BP 153/82
--- NOTE | 2018-07-01 17:05 | NUR ---
Wound care and the liason from [facility] visited with the pt yesterday afternoon. Pros of going to LTAC for wound care discussed with her.She was agreeable with going to the LTAC if she could start nicotine patch. She eventually wants to return to [facility]. All parties updated including the liason from [facility] who stopped by to visit today. Pt more confused this afternoon. CT pending. Dc timeframe for LTAC transfer uncertain. Will followup with all parties tomorrow. [facility] does have a private room for her.
--- NOTE | 2018-07-01 18:35 | NUR ---
assumed care of patient at 0700, pt continues to have a blank stare and confusion with a GCS of 13-14. denies any pain at this momment. wound dressing done this morning. MRI of the head done and no acute findings. VSS and afibrile.
[2018-07-01 20:03] VITALS: BP 150/87
--- NOTE | 2018-07-02 00:39 | NUR ---
RECEIVED PATIENT CRYING AND SHOUTING COMPLAINING OF PAIN ON THE ABDOMEN (COLOSTOMY SITE). PATIENT STILL CONFUSED, ORIENTED TO SELF ONLY, WOULD REPEATEDLY SAY THE NAME OF HER THREE SON (FIXATED TO ONE TOPIC), WOULD ASK REPEATEDLY WHAT TIME IS IT, WHY I WOKE HER UP AT MIDNIGHT. WHEN ASKED WHERE SHE IS SHE WOULD REPEATEDLY SAY SHE IS HOMELESS OR AT HER MOMS HOUSE. MOVES HER UPPER EXTREMITIES. PUPILS 3 MM EBRTL, STILL WITH EPISODES OF BLANK STARE AND WOULD SAY THAT SHE IS BLIND. LUNG SOUNDS CLEAR DIMINISHED ON THE BASES, ON ROOM AIR. COLOSTOMY ON, INTACT. SUPRAPUBIC CATHETER ON DRAINING TO A YELLOWISH URINE OUTPUT. IV NSS AT 75 ML/HOUR INFUSING AT RIGHT UPPER ARM SINGLE LUMEN PICC, INTACT. TURNING DONE EVERY 2 HOURS. WOUND CARE DONE. ORAL CARE DONE. MAINTAINED ON FALL PRECAUTION. FF UP POC.
[2018-07-02 04:35] LABS: HEMATOCRIT 32.5 % (37.0-47.0); HEMOGLOBIN 10.4 gm/dL (12.0-15.0); MCH 27.8 pg (26.0-34.0); MCV 86.8 fL (80.0-100.0); RBC 3.74 mil/uL (4.20-5.00); RDW 14.7 % (10.5-14.5); WBC 8.3 thou/uL (4.0-11.0)
[2018-07-02 04:44] VITALS: BP 131/78
[2018-07-02 04:48] LABS: ALBUMIN 1.8 g/dL (3.4-5.0); CALCIUM 8.6 mg/dL (8.5-10.1); CREATININE 1.5 mg/dL (0.6-1.0); PHOSPHORUS 4.1 mg/dL (2.5-4.9); POTASSIUM 3.2 mmol/L (3.5-5.1)
[2018-07-02 08:00] VITALS: BP 139/75
--- NOTE | 2018-07-02 10:22 | NUR ---
PT STATUS - PT CONFUSED, ABLE TO SQUEEZE MY FINGERS ON COMMAND, STATES THAT SHE IS NOT HEARING ME BUT RESPONDS TO MY QUESTIONS. PT UNABLE TO STATE DATE AND THAT SHE IS AT A HOSPITAL. SPOKE WITH DR PULIDO AND [facility] CONSULT INITIATED. UNBALE TO GIVE AM MEDS R/T PT WILL NOT TAKE SIPS OF WATER OR DECLINES ANYTHING PO WHEN OFFERED. WILL MONITOR.
[2018-07-02 11:40] VITALS: BP 128/84
--- NOTE | 2018-07-02 12:16 | NUR ---
MRI negative. Psych eval pending. [facility] liason updated. They have a room for her if dc ready this weekend. Nursing to contact the liason at [phone] and fax orders to [phone] to finalize dc arrangements.
--- NOTE | 2018-07-02 14:06 | NUR ---
Nutrition followup: Unable to interview pt, very confused. MRI negative. Psych consult. Plan D/C to LTAC when resolves. S/P wound debridement of stage 4 pressure ulcer with new colostomy placement. On regular diet. Jeses BID is ordered. No weight change. Will offer a combination of ensure or ensure max on trays and followup 07/05.
--- NOTE | 2018-07-02 14:06 | NUR ---
PT STATUS - ABLE TO ADMIN SOME OF THE AM MEDICATIONS IN APPLESAUCE THIS AFTERNOON. AWAITING PHYC CONSULT. WILL MONITOR.
--- NOTE | 2018-07-02 15:05 | NUR ---
WOUND FOLLOW UP: PT. WAS SEEN TODAY BY DR. MAXWELL AND MYSELF. PT. IS STILL VERY CONFUSED AND WEEPING AT THIS VISIT. RECOMMENDATIONS: CONTINUE WITH CURRENT PLAN OF CARE. PT. AND STAFF NURSE WERE INSTRUCTED ON PLAN OF CARE.
[2018-07-02 17:18] VITALS: BP 144/84
[2018-07-02 19:40] VITALS: BP 149/85
--- NOTE | 2018-07-02 19:53 | NUR ---
pt status change - PT AT 1700 HAD VAST IMPROVEMENT FROM THIS AM. PT NOW AOX4, LESS ATAXIA OF UPPPER EXTREMITIES, ABLE TO VERBALIZE THOUGHTS. DR PULIDO NOTIFIED AND PSYC CONSULT DC'D.
[2018-07-03 04:13] VITALS: BP 128/79
[2018-07-03 06:16] LABS: ALBUMIN 1.7 g/dL (3.4-5.0); CALCIUM 7.8 mg/dL (8.5-10.1); CREATININE 1.5 mg/dL (0.6-1.0); PHOSPHORUS 4.2 mg/dL (2.5-4.9)
--- NOTE | 2018-07-03 06:50 | NUR ---
ASSUMED PT CARE AT 1900 WITH NO SIGN OF DISTRESS NOTED IN PT. PT IS ALERT AND ORIENTED. PT IS STABLE. VITAL SIGNS STABLE. SCHEDULED MEDS ADMINISTERED TO PT. CATH IS INTACT. COLOSTOMY IS INTACT. VITAL SIGNS ARE STABLE. WOUND DRESSING CHANGE COMPLETED. PAIN MED ADMINISTERED TO PT. DENIES ANY FURTHER NEEDS AT THIS ITME.
[2018-07-03 07:40] VITALS: BP 140/83
[2018-07-03 11:35] VITALS: BP 141/86
[2018-07-03 16:20] VITALS: BP 153/91
[2018-07-03 19:36] VITALS: BP 142/91
[2018-07-04 04:08] VITALS: BP 119/80
--- NOTE | 2018-07-04 05:29 | NUR ---
ASSUMED PT CARE AT 1900 WITH REPORT TAKEN. PT IS ALERT AND ORIENTED WITH NO SIGN OF DISTRESS NOTED. PT IS STABLE AND COMFORTABLE IN BED. DENIES ANY NEED AT THIS TIME. SCHEDULED MED ADMINISTERED TO PT. PAIN MEDS AMINISTERED, WOUND CARE DRESSING COMPLETED. DENIES ANY FURTHER NEEDS AT THIS TIME.
[2018-07-04 05:37] LABS: HEMATOCRIT 31.3 % (37.0-47.0); HEMOGLOBIN 9.9 gm/dL (12.0-15.0); MCH 27.9 pg (26.0-34.0); MCHC 31.7 g/dL (28.0-37.0); MCV 87.9 fL (80.0-100.0); RBC 3.56 mil/uL (4.20-5.00); RDW 14.7 % (10.5-14.5); WBC 6.9 thou/uL (4.0-11.0)
[2018-07-04 05:53] LABS: CALCIUM 8.3 mg/dL (8.5-10.1); CREATININE 1.6 mg/dL (0.6-1.0); MAGNESIUM 2.1 mg/dL (1.8-2.4)
[2018-07-04 08:51] VITALS: BP 122/77
[2018-07-04 11:20] VITALS: BP 146/88
[2018-07-04 17:25] VITALS: BP 151/89
[2018-07-04 20:10] VITALS: BP 149/82
[2018-07-05 04:45] VITALS: BP 138/90
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
--- NOTE | 2018-07-05 07:58 | NUR ---
PT CONCERNED OVER SLEEPING MEDS AND PAIN MEDS, BOTH GIVEN NEEDED PT RESTING QUIETLY IN ROOM THE THE NOC, CATHETER AND COLOSTOMY INTACT, PILLOW ALTERNATED UNDER RIGHT HIP BUT REFUSING TO LAY ON LEFT SIDE, VSS, WILL CON'T TO MONITOR PER PPOC.
[2018-07-05 08:00] VITALS: BP 145/80
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
[2018-07-05 12:00] VITALS: BP 137/86
[2018-07-05] MEDS ORDERED: MINOCYCLINE 5050 M1 PO (13:45)
[2018-07-05] MEDS ORDERED: ZOSYN 3.373.375 GM/1 IV (13:46)
--- NOTE | 2018-07-05 14:44 | NUR ---
PT. DISCHARGING TODAY TO [facility]. FAXED DC ORDERS/SUMMARY TO FACILITY SPOKE WITH CAMILO IN ADM. SHE RECEIVED DC ORDERS AND NOTIFIED HER THAT TRANSPORT ARRANGED VIA AMBULANCE ([facility]) FOR 1600 TODAY. PT. TO NOTIFY FAMILY AND UNIT NOTIFIED AND CHART COPY PER US. RN TO CALL REPORT TO [phone].
[2018-07-05 15:46] LABS: CALCIUM 8.7 mg/dL (8.5-10.1); CREATININE 1.6 mg/dL (0.6-1.0)
[2018-07-05 16:01] LABS: ABSOLUTE NEUTROPHILS 4.5 thou/uL (1.4-8.2); BASOPHILS 0.8 % (0.0-2.0); EOSINOPHILS 3.5 % (0.0-3.0); HEMATOCRIT 32.7 % (37.0-47.0); HEMOGLOBIN 10.7 gm/dL (12.0-15.0); LYMPHOCYTES 24.5 % (24.0-44.0); MCH 28.8 pg (26.0-34.0); MCHC 32.7 g/dL (28.0-37.0); MCV 87.9 fL (80.0-100.0); MONOCYTES 6.5 % (1.0-8.0); PLATELET COUNT 401 thou/uL (150-400); POLYS 64.7 % (36.0-66.0); RBC 3.72 mil/uL (4.20-5.00); WBC 6.9 thou/uL (4.0-11.0)
--- NOTE | 2018-07-05 17:27 | NUR ---
ASSESSMENT DOCUMENTED. PT ALERT AND ORIENTED. VSS. RECEIVED PRN PAIN MED WITH PARTIAL RELIEF. WOUND CARE PROVIDED. ORDERS GIVEN TO DISCHARGE PT TO LTAC. REPORT CALLED IN TO [facility]. FAMILY AND PT NOTIFIED.
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
--- NOTE | 2018-07-06 10:09 | PATH ---
[facility] [address] [place] [address] PATHOLOGY RPT PROCEDURE Name: ORLANDO CAT CODY Room #: 212-P DIS IN M.R.#: [id number] ������������������ Admission: 06/24/18 ������������������ Date of : 81 Discharge: 07/05/18 Report #: [id number] Path Case #: [id number] [facility] Accession Number: [id number] . 01 Material submitted: . RIGHT TUBEROSITY WOUND TISSUE . 01 Clinical history: . Right ischial tuberosity decubitus ulcer. . 02 Diagnosis: Right tuberosity wound tissue, incision and drainage: - Ulceration and marked acute inflammation extending into deep subcutaneous tissue compatible with the provided history of decubitus ulcer. 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 02 Electronically signed: . Mackenzie Restrepo MD, Pathologist NPI- [id number] . 01 Gross description: . Received in formalin labeled "Orlando Cat, right tuberosity tissue" is a 10.5 x 7.5 x 3.4 cm aggregate of darnell-brown skin and darnell-forman necrotic soft tissue. An ulcerated defect is present on the largest portion of tissue measuring 2.8 x 2.2 cm. Upon sectioning, the cut surfaces are darnell-forman. Crystal Attacher sections are submitted in cassette A1. ([facility]; 07/01/2018) SY/SY . 02 Pathologist provided ICD-10: L89.319 . 02 CPT . 269126 Specimen Comment: A courtesy copy of this report has been sent to Specimen Comment: [phone], , , . Specimen Comment: Report sent to ,DR CANCINO,DR SY / DR PULIDO Specimen Comment: A duplicate report has been generated due to demographic updates. Performed at: [address] [id number] MD Alen Erwin MD Phone: [phone] Performed at: [address] [address] PATHOLOGY RPT PROCEDURE Name: ORLANDO CAT [facility] Room #: 212-P DIS IN M.R.#: [id number] ������������������ Admission: 06/24/18 ������������������ Date of : 81 Discharge: 07/05/18 Report #: [id number] Path Case #: [id number] [address], [place] [id number] MD Mackenzie Restrepo MD Phone: [phone]
== END 2018-07-05 17:30 | DRG 853 ==
LOC: ER 03:06 → 2N 04:45 → EROBS 04:45 → 2N 05:41
PROVIDERS: Emergency Medicine; Hospitalist; ADMIT Internal Medicine
PROC: 05HY33Z Insertion of Infusion Device into Upper Vein, Percutaneous Approach (ICD-10-PCS; 2018-06-25)
PROC: 0QB20ZZ Excision of Right Pelvic Bone, Open Approach (ICD-10-PCS; principal; 2018-06-29)
PROC: 0D1N0Z4 Bypass Sigmoid Colon to Cutaneous, Open Approach (ICD-10-PCS; 2018-06-29)
DX: A41.9 Sepsis, unspecified organism (principal); L89.214 Pressure ulcer of right hip, stage 4; N17.0 Acute kidney failure with tubular necrosis; N39.0 Urinary tract infection, site not specified; G82.20 Paraplegia, unspecified; F11.20 Opioid dependence, uncomplicated; M86.8X8 Other osteomyelitis, other site; L03.317 Cellulitis of buttock; G93.40 Encephalopathy, unspecified; K66.0 Peritoneal adhesions (postprocedural) (postinfection); J45.909 Unspecified asthma, uncomplicated; F32.9 Major depressive disorder, single episode, unspecified; F17.210 Nicotine dependence, cigarettes, uncomplicated; F41.9 Anxiety disorder, unspecified; M60.88 Other myositis, other site; E87.6 Hypokalemia; N76.0 Acute vaginitis; T14.8XXA Other injury of unspecified body region, initial encounter; E66.9 Obesity, unspecified; K59.09 Other constipation; F29 Unspecified psychosis not due to a substance or known physiological condition; G89.4 Chronic pain syndrome; Z89.511 Acquired absence of right leg below knee; Z88.8 Allergy status to other drugs, medicaments and biological substances; V89.2XXA Person injured in unspecified motor-vehicle accident, traffic, initial encounter; Y93.89 Activity, other specified; Y92.89 Other specified places as the place of occurrence of the external cause; Y99.8 Other external cause status; Z68.35 Body mass index [BMI] 35.0-35.9, adult
CPT/HCPCS: 10081; 50010; 50101; 50249; 50290; 50555; 50558; 50740; 50962; 51489; 52265; 53307; 54022; 54118; 56462; 56525; 56526; 57092; 57119; 57120; 57188; 57189; 57192; 62110; 62900; 70005

== ENCOUNTER 2018-08-11 20:35 | Inpatient (IN) | payer OTHER ==
[~2018-08-11] VITALS: Ht 157.5 cm; Wt 80.9 kg
[~2018-08-11 20:35] MED LIST changes: +AMBIEN 5 MG TABL5 M1 PO; +BENADRYL25 MG PO; +DIPHENHIST50 MG PO; +MINOCYCLINE 5050 M1 PO; +MIRALAX17 GM PO; +NEURONTIN 400400 M1 PO; +NYAMYC15 GM TOP; +TYLENOL EXTRA500 MG PO; +UNGUENTINE OINT28 GM TOP; +UNICOMPLEX M TA1 TA1 PO; +VITAMIN D3400 UNIT PO; +ZOSYN 3.373.375 GM/1 IV
[2018-08-11 20:36] VITALS: BP 120/74
[2018-08-11] MEDS ORDERED: TYLENOL325 MG PO (20:52)
[2018-08-11] MEDS ORDERED: JUVEN PACKET1 EAC1 PO (20:55)
[2018-08-11] MEDS ORDERED: UNICOMPLEX M TA1 TA1 PO (21:00)
[2018-08-11] MEDS ORDERED: NEURONTIN 400400 M1 PO (21:00)
[2018-08-11] MEDS ORDERED: NYAMYC15 GM TOP (21:25)
[2018-08-11] MEDS ORDERED: OXYCODONE HCL15 MG PO (21:26)
[2018-08-11] MEDS ORDERED: MIRALAX17 GM PO (21:26)
[2018-08-11] MEDS ORDERED: VITAMIN D31000 UNIT PO (21:27)
[2018-08-11] MEDS ORDERED: AMBIEN 5 MG TABL5 M1 PO (21:27)
[2018-08-11 21:32] LABS: ABSOLUTE NEUTROPHILS 9.9 thou/uL (1.4-8.2); BASOPHILS 0.3 % (0.0-2.0); HEMATOCRIT 32.5 % (37.0-47.0); HEMOGLOBIN 10.4 gm/dL (12.0-15.0); LYMPHOCYTES 11.6 % (24.0-44.0); MCH 28.2 pg (26.0-34.0); MCHC 32.1 g/dL (28.0-37.0); MCV 87.7 fL (80.0-100.0); MONOCYTES 2.2 % (1.0-8.0); PLATELET COUNT 413 thou/uL (150-400); POLYS 85.9 % (36.0-66.0); RBC 3.71 mil/uL (4.20-5.00); RDW 14.7 % (10.5-14.5); WBC 11.5 thou/uL (4.0-11.0)
[2018-08-11 21:48] LABS: ALBUMIN 2.1 g/dL (3.4-5.0); ANION GAP 11 mmol/L (7-16); BUN 7 mg/dL (7-18); CALCIUM 8.4 mg/dL (8.5-10.1); CHLORIDE 99 mmol/L (98-107); CO2 23 mmol/L (21-32); CREATININE 0.7 mg/dL (0.6-1.0); GLUCOSE 123 mg/dL (74-106); SGOT 299 U/L (15-37); SGPT 185 U/L (30-65); SODIUM 133 mmol/L (136-145); TOTAL BILIRUBIN 1.3 mg/dL (<0.1-1.0); TOTAL PROTEIN 9.2 g/dL (6.4-8.2); TROPONIN-I <0.06 ng/mL (<0.06)
[2018-08-11 21:50] LABS: POTASSIUM 2.9 mmol/L (3.5-5.1)
[2018-08-11 21:51] LABS: URINE BILIRUBIN NEGATIVE (Negative); URINE BLOOD 1+ (Negative); URINE CLARITY CLEAR; URINE COLOR YELLOW; URINE GLUCOSE-RANDOM* NEGATIVE (Negative); URINE KETONES NEGATIVE (Negative); URINE NITRITE-REFLEX NEGATIVE (Negative); URINE PROTEIN (DIPSTICK) NEGATIVE (Negative); URINE SPECIFIC GRAVITY <= 1.005 (1.005-1.035); URINE UROBILINOGEN 0.2 E.U./dl (0.2-1.0)
[2018-08-11 21:55] LABS: URINE LEUKOCYTES-REFLEX 1+ (Negative)
[2018-08-11 21:58] LABS: BACTERIA-REFLEX 1-9 Few /HPF (None Seen); CASTS None Seen /LPF (None Seen); CRYSTALS None Seen /LPF (None Seen); MUCUS None Seen strn/LPF (None Seen); SQUAMOUS None Seen /LPF (0-3); TRANSITIONAL EPITHEL CELL 0-3 Few /LPF (None Seen); URINE RBC 0-2 Rare /HPF (0-2); URINE WBC-REFLEX 0-5 Rare /HPF (0-5)
[2018-08-12] VITALS (48 sets, daily range): BP systolic 68–126; BP diastolic 33–101
[2018-08-12 05:51] LABS: HEMATOCRIT 30.2 % (37.0-47.0); HEMOGLOBIN 9.8 gm/dL (12.0-15.0); MCH 28.6 pg (26.0-34.0); MCHC 32.3 g/dL (28.0-37.0); MCV 88.6 fL (80.0-100.0); RBC 3.41 mil/uL (4.20-5.00); RDW 14.5 % (10.5-14.5); WBC 12.6 thou/uL (4.0-11.0)
[2018-08-12 06:09] LABS: ALBUMIN 1.6 g/dL (3.4-5.0); CALCIUM 6.9 mg/dL (8.5-10.1); CREATININE 0.6 mg/dL (0.6-1.0); POTASSIUM 3.1 mmol/L (3.5-5.1); TOTAL BILIRUBIN 1.4 mg/dL (<0.1-1.0); TOTAL PROTEIN 7.1 g/dL (6.4-8.2)
--- NOTE | 2018-08-12 08:33 | EKG ---
[address] [address] ELECTROCARDIOGRAM REPORT Name: IMMANUEL ANDERSEN Room #: 237-P ADM IN M.R.#: [id number] ������������������ Admission: 08/12/18 ������������������ Attend Phys: Michael Green MD Discharge: ������������������ Date of : 81 Report #: [id number] ����������������������������������������������������������������� [id number] THIS REPORT FOR: //name// [facility] ED Test Date: 2018-08-11 Test Time: 21:09:08 Pat Name: IMMANUEL ANDERSEN Department: Room: 237 Gender: F [employer] Sports Coach: IVY : 1985 Requested By: Harleen Sheikh Order Number: [id number] MD: Gopi Van Measurements Intervals [place] Rate: 140 P: 64 TX: 150 QRS: 122 QRSD: 78 T: -17 QT: 283 QTc: 432 Interpretive Statements Sinus tachycardia Consider right ventricular hypertrophy No previous ECG available for comparison Electronically Signed On 08-12-2018 8:32:59 CDT by Gopi Van [email or web address] ��������������������������������������������� <ELECTRONICALLY SIGNED> ���������������������������������������� By: Gopi Van MD ��������������������������������������������� 08/12/18 0832 2109 08 Gopi Van MD /TERENCE
--- NOTE | 2018-08-12 10:46 | NUR ---
VASCULAR ACCESS CONSULTED FOR PICC PLACEMENT. DISCUSSED BENEFITS AND RISK WITH PT, VERBALIZED UNDERSTANDING. PT PREPPED AND DRAPED FOR MAX BARRIER PRECAUTIONS. SAMSON BRACHIAL WAS WIDELY PATENT WITH USG,1% LIDOCAINE GIVEN SQ. TL POWER PICC TRIMMED TO 40CM INSERTED TO 2CM EXTERNAL.PICC SECURED. STAT CXR CONFIRMED PICC AT [facility]. RELEASED FOR IMMEDIATE USE PER PROTOCOL TO [facility].
--- NOTE | 2018-08-12 15:25 | NUR ---
WOUND CONSULT: PT. WAS SEEN TODAY BY DR. MAXWELL AND MYSELF. PT. IS WELL KNOWN TO THE WOUND CARE TEAM. PT. HAS A STAGE 4 PRESSURE ULCER TO HER RIGHT ISCHIAL TUBEROSITY. PT. WOUND IS VERY INFECTED AT THIS TIME AND SURGERY HAS BEEN CONSULTED. RECOMMENDATIONS: DAKIN'S WET TO DRY DRESSING DAILY AND PRN. PT. AND STAFF NURSE WERE INSTRUCTED ON PLAN OF CARE.
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
[2018-08-12 17:09] LABS: HAV IgM AB (ANTI-HAV IgM) Negative (Negative); HEPATITIS B SURFACE AG Negative (Negative); HEPATITIS C VIRUS AB 0.3 (0.0-0.9)
--- NOTE | 2018-08-12 18:15 | NUR ---
LATE ENTRY NOTE. ADMISSION NOTE. PT ARRIVED FROM ED AT 0315. PT ALERT AND ORIENTED X4. PT ABLE TO ANSWER SOME HISTORY QUESTIONS, BUT IS FORGETFULL ON CERTAIN EVENTS. PT DOES NOT RECALL BEING 0N ISOLATION ON PREVIOUS ADMISSION, DESPITE ISOLATION BEING DOCUMENTED ON HER CHART HISTORY. PT C/O PAIN ON HER RIGHT LOWER BACK/HIP AREA. ST ON THE MONITOR. BP SOFT AND TRENDING DOWN. TAG MARKER NOTIFIED AT BEDSIDE AND PT STARTED ON LEVOPHED GTT AT 0400. PT ALSO GOT 500 CC FLUID BOLUS ON TOP OF HER MAINTANENCE FLUID OF 125 CC/HR. TAG MARKER NOTIFIED THAT PATIENT HAD PREVIOUSLY BEEN POSITIVE ON HER SEPSIS SCREEN AND THAT SHE WAS STILL POSITIVE. ELECTROLYTES REPLACED PER ORDER. WOUND PICTURE TAKEN. PT ALSO HAS A PREVIOUS RIGHT BKA. GOOD UO. REMAINS ON RA. O2 SAT WNL. PT HAS A COLOSTOMY ON HER LUQ. SUPRAPUBIC CATHETER. REPORT FROM ED SAID THAT CATHETER WAS REPLACE, BUT PATIENT STATED THAT SHE DOES NOT REMEMBER IT BEING CHANGED.
[2018-08-13] VITALS (20 sets, daily range): BP systolic 84–121; BP diastolic 33–76
--- NOTE | 2018-08-13 01:48 | NUR ---
ASSUMED CARE OF PT AT 1900. PT ALERT AND ORIENTED X4. ABLE TO FOLLOW COMMANDS. PT PARAPLEGIC REQUIRING ASSISTANCE TO TURN IN BED. ST ON THE MONITOR. BP SOFT. PT REMAINS ON LOW DOSE LEVOPHED GTT TO KEEP MAP > 60. REMAINS ON RA WITH O2 SAT WNL. PT C/O CONSTANT PAIN ON HER LOWER BACK DESPITE PAIN MEDS GIVEN. PT HAVING LOOSE GREE/YELLOW BM THROUGH OUT THE NIGHT. C. DIFF SAMPLE SENT. GOOD UO. WILL CONTINUE TO MONITOR.
--- NOTE | 2018-08-13 02:40 | NUR ---
ASSUMED CARE OF THIS PT AT 0240. SHE IS APPEARS SLEEPING AT THIS TIME. ST ON MONITOR. NO S/SX OF ANY DISTRESS INDICATES. WILL CONTINUE TO MONITOR.
[2018-08-13 05:28] LABS: HEMATOCRIT 26.2 % (37.0-47.0); HEMOGLOBIN 8.5 gm/dL (12.0-15.0); MCH 28.4 pg (26.0-34.0); MCHC 32.6 g/dL (28.0-37.0); MCV 87.2 fL (80.0-100.0); RDW 15.2 % (10.5-14.5); WBC 7.3 thou/uL (4.0-11.0)
[2018-08-13 05:52] LABS: CREATININE 0.3 mg/dL (0.6-1.0); POTASSIUM 3.1 mmol/L (3.5-5.1)
--- NOTE | 2018-08-13 07:40 | NUR ---
PT'S BP IS TRENDING DOWN. I HAVE TO INCREASED LEVOPHED TO 5 MCG/MIN TO MAINTAIN HER MAP.65 MMHG. NO FEVER THIS AM. REPORT HAND OFF TO AM SHIFT RN.
--- NOTE | 2018-08-13 16:13 | NUR ---
WOUND FOLLOW UP: PT. WAS SEEN TODAY BY DR. MAXWELL AND MYSELF. PT. WOUND IS STABLE BUT, SHE IS STILL VERY INFECTED AT THIS TIME. PT. HAVING A GREAT DEAL OF PAIN WITH HER RIGHT HIP. RECOMMENDATIONS: CONTINUE WITH CURRENT PLAN OF CARE. PT. AND STAFF NURSE WERE INSTRUCTED ON PLAN OF CARE.
--- NOTE | 2018-08-13 19:00 | NUR ---
ASSUMED CARE OF PT AT 0645. PAIN TREATED WITH PRN PILLS AND IV MORPHINE. LOW WALKER FOR PAIN AND INCONVENIENCE, TEARFUL. BRUISE FROM BP CUFF. LEVO GTT FOR BP SUPPORT. WALKER DIET. WOUND CARE BY DR MAXWELL. PLAN FOR CT THURSDAY AND POSSIBLE SURGERY ON THURSDAY PER DR GARCIA. FEVER TREATED WITH PRN IBUPROFEN.
[2018-08-14] VITALS (24 sets, daily range): BP systolic 87–114; BP diastolic 52–77
--- NOTE | 2018-08-14 07:00 | NUR ---
No event tonight. Pt remains stable. Able to titrate levophed down to 3 mcg/min this am. She is being very emotional tonight. Stated" Nobody come to visit me" This RN offered some support. Rt leg/thigh more swollen than yesterday. Plan for CT on Thursday per . HR and Temp has been improved. Report is given to am shift RN.
--- NOTE | 2018-08-14 15:34 | NUR ---
VASCULAR ACCESS ROUNDS- CONTINUES TO BE A CRITICAL PATIENT ON LEVOPHED WELL MULTIPLE IV ANTIBIOTICS- LINE CONTINUES TO BE APPROPRIATE
--- NOTE | 2018-08-14 18:06 | NUR ---
ASSESSMENT DOCUMENTED, ALERT AND VS IMPROVING. DRESSING CHANGED. RT LEG EDEMA WORSENING, C/O PAIN AND MEDICATED INDICATED. AND WILL CONTINUE WITH POC.
[2018-08-15] VITALS (50 sets, daily range): BP systolic 80–119; BP diastolic 49–85
[2018-08-15 04:13] LABS: CALCIUM 7.9 mg/dL (8.5-10.1); CREATININE 0.3 mg/dL (0.6-1.0); MAGNESIUM 1.3 mg/dL (1.8-2.4)
[2018-08-15 04:15] LABS: HEMATOCRIT 25.9 % (37.0-47.0); HEMOGLOBIN 8.5 gm/dL (12.0-15.0); MCH 28.4 pg (26.0-34.0); MCHC 32.8 g/dL (28.0-37.0); MCV 86.5 fL (80.0-100.0); RBC 2.99 mil/uL (4.20-5.00); RDW 15.2 % (10.5-14.5); WBC 5.1 thou/uL (4.0-11.0)
[2018-08-15 04:20] LABS: POTASSIUM 2.7 mmol/L (3.5-5.1)
--- NOTE | 2018-08-15 06:29 | NUR ---
ASSUMED CARE OF PT AT 1900. VS SIGNS DOCUMENTED. ATTEMPT TO TITRATE LEVOPHED DOWN FROM 3MCG/MIN TO 2MCG/MIN. TOLERATED WELL FOR 3 HRS UNTIL SHE FELL ASLEEP AND THEN SBP DECREASED TO 85, LEVOPHED RETURNED TO 3 MCG/MIN AND LAST SBP WAS 102/66 WITH MAP OF 76. REQUESTED PAIN MEDS ALMOST EVERY TIME STAFF WAS IN THE ROOM. PAIN MEDS WERE PROVIDED DOCUMNENT. REFUSED TO TURN SEVERAL TIMES. CURRENTLY RESTING. PROGRESSING TOWARDS POC GOALS.
--- NOTE | 2018-08-15 20:26 | NUR ---
PATIENT ALERT AND ORIENTED X4, PAIN MILDLY CONTROLLED WITH MEDICATION. SINUS BRADYCARDIA WHEN ASLEEP, NORMAL SINUS RHYTHM WHILE AWAKE ON RULING MACHINE FEEDER. ON ROOM AIR. COLOSTOMY BAG CHANGED. FELDER PATENT AND DRAINING. BLOOD PRESSURE MONITORED, IV BLOOD PRESSURE MEDICATION FOR SUPPORT TO KEEP MAP ABOVE 65. DRESSINGS CHANGED TO RIGHT BUTTOCK. NO SIGNS OF ACUTE DISTRESS NOTED AT THIS TIME. WILL CONTINUE TO MONITOR.
[2018-08-16] VITALS (51 sets, daily range): BP systolic 82–127; BP diastolic 49–88
--- NOTE | 2018-08-16 02:53 | NUR ---
Assessment as documented. STILL ON LOW DOSE LEVOPHED DRIP. PATIENT COMPLAINT OF CONSTANT PAIN ON THE LOWER BACK AND BILATERAL UPPER LEG, PRN MEDS FOR PAIN GIVEN. TURNING DONE BUT PATIENT WOULD REFUSES TO GET TURN AT TIMES AND REFUSED TO GET TO HER RIGHT SIDE. COLOSTOMY BAG DRAINED TO A LIQUIDY GREENISH OUTPUT. SUPRAPUBIC CATHETER DRAINING TO YELLOWISH URNE OUTPUT. PATIENT INSTRUCTED TO BE ON NPO BY MIDNIGHT. SHE VERBALIZED UNDERSTAING OF THE INSTRUCTION. FF UP POC.
[2018-08-16 04:25] LABS: HEMATOCRIT 26.4 % (37.0-47.0); HEMOGLOBIN 8.7 gm/dL (12.0-15.0); MCH 28.1 pg (26.0-34.0); MCHC 32.9 g/dL (28.0-37.0); MCV 85.6 fL (80.0-100.0); RBC 3.08 mil/uL (4.20-5.00); RDW 15.3 % (10.5-14.5); WBC 6.2 thou/uL (4.0-11.0)
[2018-08-16 04:36] LABS: CALCIUM 7.8 mg/dL (8.5-10.1); CREATININE 0.4 mg/dL (0.6-1.0); MAGNESIUM 1.3 mg/dL (1.8-2.4); POTASSIUM 3.1 mmol/L (3.5-5.1)
--- NOTE | 2018-08-16 19:15 | NUR ---
Pt alert and oriented. Pt quiet with limited interaction at the beginning of the shift but more conversant as day progressed. Engaging in conversation. Pt has been medicated for back pain and right hip/thigh pain with partial relief of the pain (see emar). Sinus rhythm. Levophed at 2 mcg/min. Room air. No apparent difficulty with breathing. Pt ate limited amount of food. Does not care for hospital food provided. Colostomy bag intact. Moderate amount of brown liquid stool. Large urine output. PICC line intact right upper arm. Drsg to right hip intact. Refused Vancomycin today. Dr Green was notified.
[2018-08-17] VITALS (18 sets, daily range): BP systolic 88–119; BP diastolic 49–78
--- NOTE | 2018-08-17 05:55 | NUR ---
ASSUMED PT CARE AT 1900 WITH NO SIGN OF DISTRESS NOTED IN PT. PT IS ALERT AND ORIENTED. PT COMPLAINS OF PAIN AND PAIN MED ADMINISTERED TO PT. PT IS STABLE AFTER DEBRIDMENT WAS COMPLETED EARLIER DURING DAY SHIFT. VITAL SIGNS STABLE. SCHEDULED MEDS ADMINISTERED TO PT. PT IS STABLE OVERNIGHT EXCEPT WITH AN ELEVTED TEMPERATURE OF 101.4. MEDS ADMINISTERED OF AYALA TEMPERATURE. LEVEOPHED IS WEANED DOWN AND EVENTUALLY STOPPED. CONTINUE TO MONITOR BLOOD PRESSURE. PT IS STABLE. NO FUTHER NEEDS AT THIS TIME.
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
--- NOTE | 2018-08-17 15:49 | NUR ---
WOUND FOLLOW UP: PT. WAS SEEN TODAY BY DR. MAXWELL AND MYSELF. PT. WENT TO THE OR YESTERDAY FOR SURGICAL DEBRIDEMENT OF WOUND. PT. WOUND IS HEALTHY IN APPEARENCE UPON TODAYS ASSESEMENT. RECOMMENDATIONS: CONTINUE WITH CURRENT PLAN OF CARE. PT. AND STAFF NURSE WERE INSTRUCTED ON PLAN OF CARE.
--- NOTE | 2018-08-17 16:06 | PATH ---
[facility] [address] [place] [address] PATHOLOGY RPT PROCEDURE Name: IMMANUEL ANDERSEN CODY Room #: 238-P ADM IN M.R.#: [id number] ������������������ Admission: 08/12/18 ������������������ Date of : 81 Discharge: Report #: [id number] Path Case #: [id number] [facility] Accession Number: [id number] . 01 Material submitted: . ISCHIAL TUBEROSITY BONE . 01 Clinical history: . Ischial wound . 02 Diagnosis: Ischial tuberosity bone, incision and drainage: - Fragments of markedly reactive chondro-osseous tissue associated with marked acute and chronic inflammation, consistent with the provided history of wound. (IUV:equipment man; 08/17/2018) MBR/08/17/2018 . 02 Electronically signed: . Mackenzie Restrepo MD, Pathologist NPI- [id number] . 01 Gross description: . The specimen is received in formalin, labeled "Andersen, Latoni, ischial tuberosity bone" and consists of multiple fragments of pink-forman bone and a few fragments of soft tissue measuring 3.5 x 2.0 x 0.9 cm in aggregate. A direct marketing representative portion is submitted in A1 following decalcification. (SDY; 08/16/2018) SYU/SYU . 02 Pathologist provided ICD-10: L08.9 . 02 CPT . 995577, [id number] Specimen Comment: A courtesy copy of this report has been sent to Specimen Comment: [phone], , . Specimen Comment: Report sent to ,DR PULIDO / DR ALCOCER Performed at: [address], [place] [id number] MD Alen Erwin MD Phone: [phone] Performed at: [address] [id number] MD Mackenzie Restrepo MD Phone: [phone]
--- NOTE | 2018-08-17 16:58 | NUR ---
FOLLOWING FOR DC PLANNING. CLINICAL INFO REVIEWED. PT IS POD #[address] WOUND DEBRIDEMENT. DR. FLEMING RECOMMENDS LTACH STAY. TALKED WITH PT AND SHE IS OPEN TO LTACH STAY AND AGREEABLE TO [facility] WAS THERE EARLIER THIS YEAR. PT INFORMED TIMELINE FOR LTACH TRANSITION POSSIBLY THURSDAY. REFERRAL TO [facility] ADMISSIONS AND UPDATED [facility] WHO WILL SEE PT IN AM. NEEDS 14 MORE DAYS OF IV ABX AND WOUND CARE. UPDATE TO [facility]IS FROM [facility] ADMISSIONS PT IS RESIDENT AT [facility].
[2018-08-18 03:30] VITALS: BP 107/62
[2018-08-18 07:46] VITALS: BP 124/67
--- NOTE | 2018-08-18 08:06 | NUR ---
Received pt from ICU at 2315. Pt resting in bed. VSS. She refused getting tylenol for a slightly elevated temp. Refused to have her nose swab for MRSA. Emptied kelly. Turned Q2. No identified needs at the moment. Will continue to monitor.
[2018-08-18 14:28] VITALS: BP 120/77
--- NOTE | 2018-08-18 15:55 | NUR ---
CARE TEAM INDICATED THAT PT WILL LIKELY BE MEDICALLY STABLE TO DISCHARGE TO [facility] TOMORROW. LIAISON VISITED WITH PT AND SHE IS RECEPTIVE TO ADMISSION. CM TO FOLLOW REGARDING DC PLANNING.
--- NOTE | 2018-08-18 19:44 | NUR ---
PT A&OX4, VSS, C/O OF PAIN IN BACK AND HIPS, PAIN BEING MANAGED WITH MEDICATION. PT HAS REFUSED ALL MEDICATION AND MOST BED TURNS TODAY. PT HAD ULTRASOUND DONE TODAY. NO SIGNS OF DISTRESS, TEMP STABLE. NO N/V. WILL CONTINUE TO MONITOR.
[2018-08-18 21:01] VITALS: BP 116/77
--- NOTE | 2018-08-19 04:25 | NUR ---
ASSUMED CARE AROUND 1900. AXOX4. REFUSED ALL MEDS EXCEPT PAIN MEDS AND REFUSED MRSA SWAB, BECAUSE IT HURT LAST TIME MRSA TEST WAS DONE. PT IS ALERT AND ORIENTED TO UNDERSTAND THE BENEFITS AND RISKS OF REFUSAL. WILL REPORT TO ATTENDING MD IN AM. SUPRAPUBIC CATHETER AND COLOSTOMY INTACT. COLOTMOY WAS EMPTIED BY THE PT WITH MY STAND BY SUPERVISION. WOUND CARE DRESSING CLEAN AND INTACT. ISOLATION FOR MRSA OF THE WOUND. NO S/S ACUTE DISTRESS NOTED OR REPORTED AT THIS TIME. WILL CONT TO MONITOR FOR ANY CHANGES IN CONDITION
[2018-08-19 06:00] VITALS: BP 111/74
[2018-08-19 08:31] VITALS: BP 109/78
[2018-08-19] MEDS ORDERED: ENOXAPARIN40 MG/0.1 SUBQ (12:00)
[2018-08-19] MEDS ORDERED: OXYCODONE HCL15 MG PO (12:00)
[2018-08-19] MEDS ORDERED: CATHFLO ACT2 MG/VIA1 IV PUSH (12:00)
[2018-08-19] MEDS ORDERED: MAGNESIUM400 MG PO (12:00)
[2018-08-19] MEDS ORDERED: TUMS PO (12:00)
[2018-08-19] MEDS ORDERED: IBUPROFEN 400400 M2 PO (12:00)
[2018-08-19] MEDS ORDERED: BANOPHEN25 M1 PO (12:00)
--- NOTE | 2018-08-19 12:59 | NUR ---
CARE TEAM INDICATED THAT PT IS MEDICALLY STABLE TO DISCHARGE TO [facility] THIS DAY. TRANSPORT TO BE ARRANGED THROUGH [facility]. CHART COPY ORDERED. ORDERS TO BE FAXED. REPORT TO BE CALLED TO . PT AND SISTER AWARE AND AGREEABLE.
--- NOTE | 2018-08-19 14:12 | NUR ---
DISCHARGE ORDERS RECEIVED. [facility] CHART COPIED PER WIRE STITCHER OPERATOR. ORDERS FAXED TO [facility]ILO/[facility], VERIFIED RECEIVED. [facility] TRANSPORT SET UP PER UNIT SW FOR 1515 HOURS. FAMILY NOTIFIED PER UNIT SW. CONTACT NUMBER FOR REPORT PROVIDED.
--- NOTE | 2018-08-19 14:21 | NUR ---
ASSUMED CARE AT 0700, SHIFT ASSESSMENT DONE, MEDS GIVEN, VSS. REPORTED PAIN, PRN PAIN MED GIVEN. REFUSED TO TAKE ALL MORNING AND AFTERNOON MEDS. WOUND DRESSING CHANGE DONE. SUPRAPUBIC CATHETER AND COLOSTOMY BAG INTACT. DISCHARGE ORDER RECEIVED. WILL CONTINUE TO ASSESS AND ASSIST WITH ADLs NEEDED.
[2018-08-19] MEDS ORDERED: ZOSYN 3.3753.375 GM IV (14:53)
== END 2018-08-19 16:50 | DRG 853 ==
LOC: ER 20:35 → ICU 08-12 01:02 → EROBS 08-12 01:02 → ICU 08-12 02:57 → 4W 08-17 20:48
PROVIDERS: Nurse Practitioner Acute Care; Nurse Practitioner Family; Student in an Organized Health Care Education/Training Program; ADMIT Internal Medicine
DX: A41.9 Sepsis, unspecified organism (principal); L89.314 Pressure ulcer of right buttock, stage 4; R65.21 Severe sepsis with septic shock; F11.20 Opioid dependence, uncomplicated; G82.20 Paraplegia, unspecified; L03.115 Cellulitis of right lower limb; M86.8X8 Other osteomyelitis, other site; N39.0 Urinary tract infection, site not specified; J45.909 Unspecified asthma, uncomplicated; F32.9 Major depressive disorder, single episode, unspecified; G89.4 Chronic pain syndrome; K59.00 Constipation, unspecified; E87.6 Hypokalemia; R74.0 Nonspecific elevation of levels of transaminase and lactic acid dehydrogenase [LDH]; F17.210 Nicotine dependence, cigarettes, uncomplicated; E83.42 Hypomagnesemia; K52.9 Noninfective gastroenteritis and colitis, unspecified; Z89.511 Acquired absence of right leg below knee; Z88.8 Allergy status to other drugs, medicaments and biological substances; Z93.3 Colostomy status; Z88.1 Allergy status to other antibiotic agents; Z91.14 Patient's other noncompliance with medication regimen; Z79.899 Other long term (current) drug therapy
CPT/HCPCS: 10045; 10047; 10078; 27000; 50101; 50386; 50403; 57119; 57120; 57192; 62110; 62900; 70005

== ENCOUNTER 2018-10-12 23:37 | Inpatient (IN) | payer OTHER ==
[~2018-10-12] VITALS: Ht 157.5 cm; Wt 72.6 kg
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
[~2018-10-12 23:37] MED LIST changes: +CATHFLO ACT2 MG/VIA1 IV PUSH; +ENOXAPARIN40 MG/0.1 SUBQ; +IBUPROFEN 400400 M2 PO; +JUVEN PACKET1 EAC1 PO; +MAGNESIUM400 MG PO; +OXYCODONE HCL15 MG PO; +TYLENOL325 MG PO; +VITAMIN D31000 UNIT PO; +ZOSYN 3.3753.375 GM IV
[2018-10-12 23:38] VITALS: BP 94/56
[2018-10-13 00:10] LABS: ABSOLUTE NEUTROPHILS 10.6 thou/uL (1.4-8.2); BASOPHILS 0.3 % (0.0-2.0); HEMOGLOBIN 10.7 gm/dL (12.0-15.0); LYMPHOCYTES 15.2 % (24.0-44.0); MCH 27.8 pg (26.0-34.0); MCHC 32.6 g/dL (28.0-37.0); MCV 85.3 fL (80.0-100.0); MONOCYTES 3.3 % (1.0-8.0); PLATELET COUNT 587 thou/uL (150-400); POLYS 81.2 % (36.0-66.0); RBC 3.86 mil/uL (4.20-5.00); RDW 14.2 % (10.5-14.5)
[2018-10-13 00:15] LABS: URINE BILIRUBIN 1+ (Negative); URINE BLOOD 1+ (Negative); URINE CLARITY SL CLOUDY; URINE COLOR YELLOW; URINE GLUCOSE-RANDOM* NEGATIVE (Negative); URINE KETONES NEGATIVE (Negative); URINE LEUKOCYTES-REFLEX 1+ (Negative); URINE NITRITE-REFLEX NEGATIVE (Negative); URINE PROTEIN (DIPSTICK) 1+ (Negative)
[2018-10-13 00:16] LABS: CALCIUM 8.6 mg/dL (8.5-10.1); CREATININE 0.6 mg/dL (0.6-1.0); POTASSIUM 3.4 mmol/L (3.5-5.1)
[2018-10-13 00:19] LABS: ALBUMIN 2.2 g/dL (3.4-5.0); TOTAL BILIRUBIN 0.6 mg/dL (<0.1-1.0); TOTAL PROTEIN 8.1 g/dL (6.4-8.2)
[2018-10-13 00:25] LABS: CALCIUM OXALATE 0-3 Few /LPF (None Seen); HYALINE CASTS 0-3 Few /LPF (None Seen); MUCUS >6 Heavy strn/LPF (None Seen); SQUAMOUS 0-3 Few /LPF (0-3); URINE RBC 3-10 Few /HPF (0-2); URINE WBC-REFLEX 6-15 Few /HPF (0-5); YEAST-REFLEX Present (None Seen)
[2018-10-13 07:47] LABS: HEMATOCRIT 30.9 % (37.0-47.0); HEMOGLOBIN 10.1 gm/dL (12.0-15.0); MCH 28.1 pg (26.0-34.0); MCHC 32.8 g/dL (28.0-37.0); MCV 85.8 fL (80.0-100.0); RBC 3.6 mil/uL (4.20-5.00); RDW 14.3 % (10.5-14.5); WBC 9.2 thou/uL (4.0-11.0)
--- NOTE | 2018-10-13 08:01 | NUR ---
PT. REQUESTING PAIN MEDICATION. FENTANYL OFFERED TO PT.. MED. OBTAINED FROM [facility] AND DRAWN UP AT BEDSIDE. PT. REPORTS SHE DOES NOT WANT FENTANYL. MED. WASTED AND PLACED IN APPROPRIATE WASTE BIN. WITNESS WITH JORJE HURLEY RN.
[2018-10-13 08:06] LABS: CALCIUM 7.9 mg/dL (8.5-10.1); CREATININE 0.4 mg/dL (0.6-1.0); POTASSIUM 3.4 mmol/L (3.5-5.1)
--- NOTE | 2018-10-13 08:45 | NUR ---
DR. PIERCE PAGED TO CLARIFY ORDERS FOR PATIENT, AWAITING CALL BACK.
--- NOTE | 2018-10-13 09:41 | NUR ---
DR. FABIAN WITH CALL BACK REGARDING PT. ORDERS. PER DR. FABIAN, HE IN EN ROUTE TO ER FOR EXAMINATION OF PATIENT. LAB HERE TO OBTAIN REPEAT LACTIC ACID BLOOD DRAW.
--- NOTE | 2018-10-13 11:24 | NUR ---
WITH FIRST CONTACT WITH PATIENT, PT. WITH IV X2. IV TO LEFT HAND AND IV TO LEFT AC. LEFT HAND IV D/C'D AT THIS TIME.
--- NOTE | 2018-10-13 12:01 | NUR ---
IV INFUSION ORDERED OF 0.9NS AT 150CC/HR. UNABLE TO DOCUMENT IN [place] AT THIS TIME.
[2018-10-13 13:52] VITALS: BP 94/56
[2018-10-13 14:19] VITALS: BP 109/73
[2018-10-13 20:00] VITALS: BP 113/65
--- NOTE | 2018-10-13 20:02 | NUR ---
[age] YEAR OLD FEMALE ADMITTED TO ROOM 248 UNDER THE CARE OF DR. FABIAN. PT WAS ADMITTED TO ER PER EMS FROM [facility], DUE TO FEVER. PT ALERT AND ORIENTED TIMES FOUR. VSS, 99%RA, SR ON TELE. FELDER AND COLOSTOMY TO DD. WOUND CARE HANNAH BUTTOCK DONE, PLAN FOR SURGERY IN THE MORNING. PT HAS POOR APPETITE. WILL CONTINUE TO MONITOR.
--- NOTE | 2018-10-14 03:05 | NUR ---
ASSESSMENT: PT REMAIN ALERT AND ORIENT TIMES FOUR. DENIES PAIN, SOB AND N/V. DOES SLEEP WITH COVERS OVER HEAD CAUSING DIFFICULT TO BREATHE PROPERLY AND SHE BECOMES TACHYNEIC WITH RR 30'S. IS GOING FOR A DEBRIDEMENT THIS AM. NPO SINCE MN. COLOSTOMY INTACT WITH GREENISH OUTPUT. R CHRISTINEA NOTED. ST PER MONITOR WITH HR IN 130'S. THEATRICAL VARIETY AGENT MISAEL NOTIFIED, NO ORDERS GIVEN AT THAT TIME. DID C/O PAIN LATER IN THE SHIFT, OXYCONDONE GIVEN WITH GOOD RELIEF. FELDER PATENT WITH MINIMAL OUTPUT. SLOW PROGRESS TOWARDS DC GOALS, WILL CONTINUE TO MONITOR.
[2018-10-14 04:00] VITALS: BP 100/58
[2018-10-14 12:51] VITALS: BP 110/73
--- NOTE | 2018-10-14 14:29 | NUR ---
ASSUMED CARE OF PT AT APPROX 0700. PT IS ALERT AND ORIENTED X4, MONITORED ON TELE AND ABLE TO MAINTAIN 02 SAT >90 ON RA. PT WAS TAKEN TO OR AT APPROX 0800 FOR I AND D OF WOUND. REPORT RECIEVED FROM POST OP AT APPROX 1105. PT RETURNED TO ROOM AT APPROX 1215. PT COMPLAINS OF PAIN THAT IS RESOLVED WITH PRN PAIN MEDICATIONS. PT REFUSES TURNS AT THIS TIME. EDUCATED PT ON IMPORTANCE OF TURNING. PT ALSO REFUSING FLU SWAB TO BE DONE CURRENTLY. ASSESSMENT CHARTED. VSS. WILL CONTINUE TO MONITOR.
--- NOTE | 2018-10-14 14:47 | NUR ---
WOUND CARE CONSULT; ROUNDING TODAY WITH DR MAXWELL. PATIENT IS S/P SURGICAL DEBRIDEMENT. WE DID NOT REMOVE THE DRESSING. OPPORTUNITY WAS GIVEN TO ANSWER ANY QUESTIONS THE PATIENT HAD. SHE HAD NO QUESTIONS OR COMPLAINTS. RECOMMENDATION; FOLLOW UP TOMORROW. RN NOTIFIED
[2018-10-14 16:00] VITALS: BP 106/74
[2018-10-14 20:00] VITALS: BP 109/76
[2018-10-14 23:42] VITALS: BP 99/61
[2018-10-15 04:35] VITALS: BP 99/62
--- NOTE | 2018-10-15 06:00 | NUR ---
Pt remains stable this am. No changes of conditions. Pain control is adequated with oxy IR. No S/sx of any complication indicates. Colostomy is noted to have large amount liquid stool notes. Obtain specimen for C-diff this am. VSS. Afebrile in this shift.
[2018-10-15 08:00] VITALS: BP 116/69
--- NOTE | 2018-10-15 08:06 | HC ---
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 HISTORY OF PRESENT ILLNESS: This is a 32-year-old female patient with a history of paraplegia who was admitted through the Emergency Department with fever and chills over the last 24 hours. The patient denies any cough, shortness of breath, sore throat, nausea or vomiting. She is uncertain as to whether the infection is centered in her right ischial pressure ulcer, but is not aware of any other signs and symptoms. She states she is feeling better since she has been admitted through the Emergency Department. 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 She had a history of T4 paraplegia, history of C. diff and she has had a diverting colostomy. MEDICATIONS: Include clindamycin, acetaminophen, enoxaparin, hydromorphone, ondansetron, oxycodone, Zosyn, calcium carbonate, cholecalciferol, diphenhydramine, gabapentin, Mag-Ox, Zosyn. ALLERGIES: TRAMADOL AND VANCOMYCIN. REVIEW OF SYSTEMS: CONSTITUTIONAL: The patient does complain of fever and chills. Denies recent weight loss. NEUROLOGICAL: The patient has T4 paraplegia, but no new changes in terms of motor weakness. ENT: The patient denies earache, nasal drainage or sore throat. CARDIOVASCULAR: The patient denies chest pain, palpitation or diaphoresis. PULMONARY: The patient denies cough or shortness of breath. GASTROINTESTINAL: The patient denies nausea, vomiting, diarrhea or abdominal pain. She does have a colostomy. GENITOURINARY: The patient denies frequency or urgency. Other systems are negative in a 14-point review of systems. PHYSICAL EXAMINATION: VITAL SIGNS: At this time include temperature 36.9, pulse 107, respiratory rate of 20, blood pressure 94/56; admission temperature was 39.4. [facility] [address] [place] [address] CONSULTATION Name: IMMANUEL ANDERSEN [facility] Room #: 248-P [facility] IN ..#: [id number] Admission: 10/13/18 ������������������ Attend Phys: Oswaldo Weinstein MD Discharge: ������������������ Date of : 81 Report #: [id number] GENERAL: This is a chronically ill-appearing female patient who appears to be in no distress. HEENT: Head normocephalic. Nose and throat are clear. NECK: Supple. LUNGS: Clear. ABDOMEN: Soft. Bowel sounds present. Colostomy bag is full, functioning and no evidence of infection there. BACK: The right ischial region demonstrates stage 4 pressure ulceration with palpable spiculated bone in the ischial base. The piña are granulating. EXTREMITIES: Demonstrate prior right below-knee amputation. There is some mild erythema that may be suggestive of cellulitis to the right hip area. NEUROLOGIC: The patient is paraplegic, moves all 4 extremities. Alert and oriented. LABORATORY DATA: Include white blood cell count of 13.0, hematocrit of 10.7; white blood cell count is improved to 9.2. Sodium 138, potassium 3.4, chloride 106, BUN 6, creatinine 0.4, glucose 135. Lactic acid on admission 2.2, now 0.8. CRP is less than 2. Albumin is low at 2.2. CLINICAL IMPRESSION: 1. Fever, chills, possible sepsis with strong consideration for possible osteomyelitis or cellulitis and wound infection. 2. T4 paraplegia. 3. Moderate protein-calorie malnutrition. RECOMMENDATIONS: At this point in time, we will recommend culture and sensitivity be obtained from the right ischial ulceration, packed with quarter strength Dakin's moist gauze b.i.d., low air loss mattress, q.2 hour turning and positioning, PRAFO boot to the left lower extremity. We will consult Surgery for debridement and culture of bone. The patient is agreeable to current plan. I appreciate being asked to see her in consultation. ��������������������������������������������� <ELECTRONICALLY SIGNED> ���������������������������������������� By: Cuba Chandler MD ��������������������������������������������� 10/15/18 0806 [id number] Cuba Chandler MD /nt
[2018-10-15 09:29] LABS: HEMATOCRIT 31.5 % (37.0-47.0); HEMOGLOBIN 9.9 gm/dL (12.0-15.0); MCH 27.3 pg (26.0-34.0); MCHC 31.5 g/dL (28.0-37.0); MCV 86.6 fL (80.0-100.0); RBC 3.64 mil/uL (4.20-5.00); RDW 14.1 % (10.5-14.5)
[2018-10-15 09:36] LABS: CALCIUM 8.1 mg/dL (8.5-10.1); CREATININE 0.5 mg/dL (0.6-1.0)
[2018-10-15 09:39] LABS: POTASSIUM 2.9 mmol/L (3.5-5.1)
--- NOTE | 2018-10-15 10:37 | NUR ---
Met with patient who is A/Ox4. she is ltc resident of [facility]. She has hx of LTAC with [facility] admissions. She admitted with fever and rec I/D of stage 4 sacral wound yesterday. Patient reports at [place] she uses a wc and power chair. She reports first admission at [facility] good stay but second time she was unable to get up and go outside. She is a smoker. Plan return to [facility] at ms. Plan to [facility] facility.
--- NOTE | 2018-10-15 15:06 | NUR ---
ROUNDING WITH DR SHAREE MAXWELL. THE TIGHT ISCHIALSURGICAL WOUND WAS ASSESSED BY DR MAXWELL. GENERAL MOVMENT WAS PAINFUL FOR THE PATIENT WELL TAPE REMOVAL. 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 RECOMMENDATIONS CONTINUE CURRENT ORDERS;SANDI SOAKED GAUZLai, JOSIAH MONTGOMERY PRESENT
--- NOTE | 2018-10-15 17:03 | NUR ---
FAXED CLINICAL UPDATE TO [facility] SPOKE WITH DEEPTHI IN ADM HE RECEIVED UPDATE. DCP TO FOLLOW.
--- NOTE | 2018-10-15 17:06 | PATH ---
[facility] [address] [place] [address] PATHOLOGY RPT PROCEDURE Name: IMMANUEL CAT CODY Room #: 248-P ADM IN M.R.#: [id number] ������������������ Admission: 10/13/18 ������������������ Date of : 81 Discharge: Report #: [id number] Path Case #: [id number] [facility] Accession Number: [id number] . 01 Material submitted: . pelvic bone - RIGHT ISCHIAL TISSUE. Modifiers: right . 01 Clinical history: . Right ischial decubitus ulcer IV infection, sepsis, fever, PCM . 02 Diagnosis: Right ischial tissue, decubitus ulcer, debridement: - Skin and subcutaneous tissue showing ulceration as well as gangrenous necrosis and marked acute inflammation. (IUV/db; 10/15/2018) LBQ/10/15/2018 . 02 Electronically signed: . Mackenzie Restrepo MD, Pathologist NPI- [id number] . 01 Gross description: . The specimen is received in formalin, labeled "Latoni Cat, right ischial tissue". Received is a segment of pink-forman to dusky darnell-forman skin with attached soft tissue measuring 13.4 x 3.6 x 1.2 cm in greatest dimensions. The specimen is submitted representatively in cassette A1. (CAA; 10/14/2018) QAC/QAC . 02 Pathologist provided ICD-10: L98.499, I96, L08.9 . 02 CPT . 204392 Specimen Comment: A courtesy copy of this report has been sent to Specimen Comment: [phone], . Specimen Comment: Report sent to / DR FABIAN Performed at: [address], [place] [id number] MD Alen Erwin MD Phone: [phone] Performed at: [address] [id number] MD Mackenzie Restrepo MD Phone: [phone]
--- NOTE | 2018-10-15 18:00 | NUR ---
PATIENT ALERT AND ORIENTED AND HAD OLDER MALE VISITOR SHE REFERRED TO [facility]. PATIENT ON CELL PHONE PERIODICALLY. PATIENT HAS POOR APPETITE AND HAD MINIMAL FOOD INTAKE TODAY. CRITICAL LAB CALLED TO THIS NURSE AND SPOKE WITH DR. FABIAN ABOUT LOW K+ VALUE SINCE HE WAS AT BEDSIDE. HE INDICATED HE WOULD PLACE K+ ORDER. SENT [employer] MESSAGE SEVERAL HOUR LATER REGARDING NO K+ ORDER. SPOKE WITH ICU CHARGE NURSE AND SHE WAS ABLE TO CONTACT DR. FABIAN AND LAB RE-DRAW WAS PLACED FOR K+. PATIENT TRANSFERRED TO ROOM 350 AT END OF SHIFT AND REPORT GIVEN TO ULISES KLEIN.
[2018-10-15 19:45] LABS: CALCIUM 8.3 mg/dL (8.5-10.1); CREATININE 0.4 mg/dL (0.6-1.0); MAGNESIUM 1.5 mg/dL (1.8-2.4)
[2018-10-15 19:47] LABS: POTASSIUM 2.5 mmol/L (3.5-5.1)
--- NOTE | 2018-10-15 20:07 | NUR ---
unable to chart on critical value. placed a call to cherie, she stated that it is fine to use the protocal
--- NOTE | 2018-10-15 22:14 | NUR ---
PT STATED THAT HER DRESSING WAS CHANGED TWO TIMES TODAY. I VISUALIZED DRESSING AND IT IS CLEAN AND DRY NO SHADOWING. SHE STATED THAT THE DRESSING WAS DONE A AT 6 PM TONIGHT. JUST PRIOR TO COMING TO THIS FLOOR. SHE IS NOT WILLING TO ALLOW ME TO CHANGE THE DRESSING AGAIN.
[2018-10-15 23:50] VITALS: BP 107/73
--- NOTE | 2018-10-16 03:48 | NUR ---
RESTING QUIETLY TONIGHT. NEEDS ENCOURAGING TO TURN SIDE TO SIDE. CONTINUES ON IV FLUIDS. SHE REFUSED TO TAKE THE IV POTASSIUM, SO SHE DID COOPERATE WITH THE PO POTASSIUM SUPPLEMENT. RECHECK THIS AM. CAREPLAN REVIEWED.
[2018-10-16 04:20] VITALS: BP 102/70
[2018-10-16 05:42] LABS: HEMOGLOBIN 9.3 gm/dL (12.0-15.0); MCH 28.2 pg (26.0-34.0); MCHC 33.2 g/dL (28.0-37.0); MCV 85.1 fL (80.0-100.0); RBC 3.29 mil/uL (4.20-5.00); WBC 5.7 thou/uL (4.0-11.0)
[2018-10-16 05:54] LABS: CALCIUM 7.8 mg/dL (8.5-10.1); CREATININE 0.3 mg/dL (0.6-1.0); POTASSIUM 3.3 mmol/L (3.5-5.1)
[2018-10-16 08:01] VITALS: BP 135/85
[2018-10-16 11:24] VITALS: BP 132/85
[2018-10-16 16:13] VITALS: BP 130/92
--- NOTE | 2018-10-16 16:32 | NUR ---
Assumed care of patient at 0700. Vitals have been stable. Patient is alert and oriented x4, flat affect. Complaints of generalized pain, partially controlled with PRN medications. Wound care completed per orders to right ischial tuberosity. Patient tolerated well. Due to low tim score and pressure ulcer, low airloss mattress pump applied. Patient has refused most turns and repositioning today. Educated on importance of turns, verbalizes understanding, but needs reinforcement. Patient has also refused breakfast and lunch meals today. States is not hungry and just wants to sleep. Dr. Long at bedside this afternoon; Dilaudid given before dressing change with physician. Tolerated second dressing change well. Wound care orders changed; Dakins discontinued, wet-to-dry with saline. To return tomorrow morning for wound care. Patient is more interactive with staff this afternoon. New IV access obtained with help of IV team. IVF and IV antibiotics as ordered. Electrolytes replaced per protocol. Colostomy bag leaking this afternoon; changed. Still liquid stool. Suprapubic cath with good output. Floating left heel with pillow. Not yet progressing towards POC. Will continue to monitor.
[2018-10-16 21:25] VITALS: BP 106/73
[2018-10-17 04:50] VITALS: BP 139/83
--- NOTE | 2018-10-17 04:51 | NUR ---
Pt. requested sleep med , MANAGER OF ADMINISTRATION called and order for melatonin obtained. She stated she slept fair during the night. Repositioned prn per pt. request and does not want to be bothered when asleep. Medicated for pain with some relief. Bed alarm on and left leg SCD in place. Will continue to monitor.
[2018-10-17 05:11] LABS: HEMOGLOBIN 9.7 gm/dL (12.0-15.0); MCH 28.3 pg (26.0-34.0); MCHC 33.3 g/dL (28.0-37.0); RBC 3.41 mil/uL (4.20-5.00); RDW 14.4 % (10.5-14.5); WBC 6.2 thou/uL (4.0-11.0)
[2018-10-17 05:26] LABS: CALCIUM 8.1 mg/dL (8.5-10.1); CREATININE 0.4 mg/dL (0.6-1.0); MAGNESIUM 1.6 mg/dL (1.8-2.4); POTASSIUM 3.5 mmol/L (3.5-5.1)
[2018-10-17 07:37] VITALS: BP 139/90
--- NOTE | 2018-10-17 12:17 | NUR ---
Assumed care of patient at 0700. Alert and oriented x4, flat affect. Vitals have been stable. Complaints of generalized pain. PRN meds given with partial pain control. Patient refusing repositioning; states just wants to sleep. Low airloss mattress pump in place. Left heel floated and SCD in place. Has refused breakfast and lunch. Awaiting Dr. Long for wound dressing change. Not yet progressing towards POC. Will continue to monitor.
[2018-10-17 15:13] VITALS: BP 131/90
[2018-10-17 19:17] VITALS: BP 138/89
[2018-10-18 03:35] VITALS: BP 119/76
--- NOTE | 2018-10-18 04:48 | NUR ---
Family members visited with patient last night. Family members educated on isolation precautions and importance of washing hands before and after leaving patients room. Medicated for pain prior to dressing change and also pain med po given for chronic pain. Repositioned prn , she refuses to turn q2 hrs and just call staff whenever she's awake. Afebile. Received a call from lab that Flu swab still needs to be collected . She refused flu nasal swab. Colostomy emptied and had 700 ml out of liquid stool. Large amount of urine from kelly. Bed alarm on for safety and SCD on left foot. Will continue to monitor.
[2018-10-18 05:22] LABS: HEMATOCRIT 31.3 % (37.0-47.0); HEMOGLOBIN 10.1 gm/dL (12.0-15.0); MCH 27.5 pg (26.0-34.0); MCHC 32.4 g/dL (28.0-37.0); RBC 3.68 mil/uL (4.20-5.00); RDW 14.2 % (10.5-14.5); WBC 6.9 thou/uL (4.0-11.0)
[2018-10-18 05:33] LABS: CALCIUM 8.3 mg/dL (8.5-10.1); CREATININE 0.4 mg/dL (0.6-1.0); MAGNESIUM 1.6 mg/dL (1.8-2.4); POTASSIUM 3.4 mmol/L (3.5-5.1)
[2018-10-18 07:19] VITALS: BP 145/97
--- NOTE | 2018-10-18 08:46 | NUR ---
PT STILL TRYING TO SLEEP AT THIS TIME. REFUSES BREAKFAST AND WANTS TO WAIT TO TAKE MEDS. WILL CONT. TO MONITOR.
--- NOTE | 2018-10-18 11:04 | NUR ---
[employer] Engineer sent updates to [facility] to Max in admissions. Patient just moved up from ICU and dc date unknown at this time. DP sent text to Max to inform him of updates faxed to him.
[2018-10-18] MEDS ORDERED: MINOCYCLINE 5050 M1 PO (13:01)
--- NOTE | 2018-10-18 14:24 | NUR ---
WOUND CARE FOLLOW UP; ROUNDING WITH DR MAXWELL AND JONATHAN METAL MOULDER'S ASSISTANT. THE PATIENT IS S/P SURGICAL WOUND DEBRIDEMENT WITH INTERFERYL GRAFT PLACEMENT. THE WOUND BED REMAINS FREE OF ANY NON VIABLE TISSUE AND NON ODOROUS AT THIS TIME. RECOMMENDATIONS; OK FOR PATIENT TO BE D/C BACK TO HER FACULITY. DISCUSSED WITH ULISES
--- NOTE | 2018-10-18 14:37 | NUR ---
DISCHARGE NOTE: SW reviewed chart and spoke with nursing and attending physician. Pt is medially stable for discharge back to [facility] today. office workforce planner coordinated. Transportation scheduled for [id number] per facility's arrangements. Chart copy ordered. Nursing to call report. No additional SW needs identified at this time, but is available to assist should needs arise.
--- NOTE | 2018-10-18 14:54 | NUR ---
REPORT CALLED IN TO NURSE ACEVEDO AT [facility]. WAITING FOR TRANSPORT.
--- NOTE | 2018-10-18 17:47 | NUR ---
CONSULTED TO PLACE A MIDLINE FOR THE PATIENT DISCHARGING BACK TO A SENIOR CARE FACILITY. VERBAL CONSENT OBTAINED. DISCUSSED WAYS TO PREVENT COMPLICATIONS AND SHE VERBALIZED UNDERSTANDING. THE LEFT UPPER ARM BASILIC WAS WIDLEY PATENT. A #4F POWER MIDLINE WAS PLACED PER HOSPITAL POLICY. MIDLINE WAS TRIMMED TO 15CM AND ADVANNECED WITHOUT DIFFICULTY. LINE SECURED AND RELEASED FOR USE
== END 2018-10-18 18:09 | DRG 853 ==
LOC: ER 23:37 → EROBS 10-13 01:06 → ICU 10-13 01:06 → 3W 10-15 18:50
PROVIDERS: Emergency Medicine; Nurse Practitioner Family; ADMIT Hospitalist
DX: A41.9 Sepsis, unspecified organism (principal); L89.214 Pressure ulcer of right hip, stage 4; T82.7XXA Infection and inflammatory reaction due to other cardiac and vascular devices, implants and grafts, initial encounter; G82.20 Paraplegia, unspecified; E44.0 Moderate protein-calorie malnutrition; N39.0 Urinary tract infection, site not specified; L03.115 Cellulitis of right lower limb; M86.9 Osteomyelitis, unspecified; J45.909 Unspecified asthma, uncomplicated; G89.29 Other chronic pain; F32.9 Major depressive disorder, single episode, unspecified; F17.210 Nicotine dependence, cigarettes, uncomplicated; K59.00 Constipation, unspecified; R74.0 Nonspecific elevation of levels of transaminase and lactic acid dehydrogenase [LDH]; Z93.3 Colostomy status; Z87.440 Personal history of urinary (tract) infections; Z89.511 Acquired absence of right leg below knee; Z79.1 Long term (current) use of non-steroidal anti-inflammatories (NSAID); Z79.899 Other long term (current) drug therapy; Z88.8 Allergy status to other drugs, medicaments and biological substances; Z88.1 Allergy status to other antibiotic agents; Z68.29 Body mass index [BMI] 29.0-29.9, adult; Z86.14 Personal history of Methicillin resistant Staphylococcus aureus infection
CPT/HCPCS: 10203; 10879; 27000; 50010; 50101; 50386; 50403; 57119; 57120; 57192; 62110; 62900; 70005

== ENCOUNTER 2018-11-06 20:58 | Inpatient (IN) | payer OTHER ==
[~2018-11-06] VITALS: Ht 157.5 cm; Wt 72.3 kg
--- NOTE | ~2018-11-06 | O ---
[facility] [place] [address] [place] [address] OPERATIVE REPORT Name: IMMANUEL ANDERSEN CODY Room #: 453-P [facility] IN M.R.#: [id number] Admission: 11/07/18 ������������������ Attend Phys: Roe Naranjo MD Discharge: ������������������ Date of : 81 Report #: [id number] THIS REPORT FOR: //name// CC: FAM unknown Roe Naranjo DATE OF SERVICE: 11/13/2018 SURGEON: Juan M Addison D.P.M. PREOPERATIVE DIAGNOSES: Ulceration with soft tissue infection to left lateral malleolus, possible acute osteomyelitis. POSTOPERATIVE DIAGNOSES: Ulceration with soft tissue infection to left lateral malleolus, possible acute osteomyelitis. PROCEDURE: 1. Debridement of left distal fibular malleolus (bone). 2. Excision of soft tissue wound, left lateral ankle. 3. Incision and drainage, left ankle wound. ANESTHESIA: General LMA. INJECTABLES: 20 mL of 0.5% Marcaine plain. SPECIMENS: None. CULTURES: Soft tissue, left ankle, aerobic and anaerobic. HEMOSTASIS: Left calf tourniquet at 275 mmHg. ESTIMATED BLOOD LOSS: Roughly 1 mL. COMPLICATIONS: None. DESCRIPTION OF PROCEDURE: The patient was brought to the OR and placed on the table supine with induction of general LMA anesthesia. A local anesthetic block was given to the left leg. The extremity was prepped and draped aseptically, and the tourniquet was inflated after exsanguination. A #10 surgical blade was used to create a circumferential incision around the wound, and the wound was excised full thickness down to bone and sent for culture. Aerobic and anaerobic cultures were ordered, and the underlying bone was debrided of tissue and inspected. The distal fibula bone appeared hard with no discoloration, necrosis, lysis or visible signs of osteomyelitis. I curettaged the surface of the bone with a curette to remove small amount of bone and tissue from it. The wound was flushed with sterile saline and dried. It was packed with [employer] [address] [address] OPERATIVE REPORT Name: ANDERSEN,IMMANUEL [facility] Room #: 453-P [facility] IN M.R.#: [id number] Admission: 11/07/18 ������������������ Attend Phys: Roe Naranjo MD Discharge: ������������������ Date of : 81 Report #: [id number] and covered with ABDs, Kerlix and an Josias bandage. Tourniquet was deflated and the patient left the OR, alert and oriented with no complications. ��������������������������������������������� ���������������������������������������� By: ��������������������������������������������� [id number] Juan M Addison DPM /nt
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
[2018-11-06 21:08] VITALS: BP 112/73
[2018-11-06 21:55] LABS: ABSOLUTE NEUTROPHILS 3.4 thou/uL (1.4-8.2); BASOPHILS 0.5 % (0.0-2.0); HEMATOCRIT 33.1 % (37.0-47.0); HEMOGLOBIN 10.9 gm/dL (12.0-15.0); LYMPHOCYTES 42.5 % (24.0-44.0); MCH 27.7 pg (26.0-34.0); MCHC 32.8 g/dL (28.0-37.0); MCV 84.3 fL (80.0-100.0); MONOCYTES 8.5 % (1.0-8.0); PLATELET COUNT 703 thou/uL (150-400); POLYS 41.5 % (36.0-66.0); RBC 3.93 mil/uL (4.20-5.00); RDW 14.9 % (10.5-14.5); WBC 8.2 thou/uL (4.0-11.0)
[2018-11-06 22:01] LABS: CALCIUM 8.3 mg/dL (8.5-10.1); CREATININE 0.4 mg/dL (0.6-1.0); POTASSIUM 3.4 mmol/L (3.5-5.1)
[2018-11-06 22:07] LABS: TOTAL BILIRUBIN 0.2 mg/dL (<0.1-1.0); TOTAL PROTEIN 9.3 g/dL (6.4-8.2)
[2018-11-07] VITALS (7 sets, daily range): BP systolic 98–125; BP diastolic 49–82
[2018-11-07 00:23] LABS: URINE BILIRUBIN NEGATIVE (Negative); URINE BLOOD 1+ (Negative); URINE CLARITY CLEAR; URINE COLOR YELLOW; URINE GLUCOSE-RANDOM* NEGATIVE (Negative); URINE KETONES NEGATIVE (Negative); URINE NITRITE-REFLEX NEGATIVE (Negative); URINE PROTEIN (DIPSTICK) NEGATIVE (Negative); URINE UROBILINOGEN 0.2 E.U./dl (0.2-1.0)
[2018-11-07 00:25] LABS: URINE LEUKOCYTES-REFLEX 3+ (Negative)
[2018-11-07 00:34] LABS: AMORPHOUS PHOSPHATES Many /LPF (None Seen); BACTERIA-REFLEX 1-9 Few /HPF (None Seen); CASTS None Seen /LPF (None Seen); CRYSTALS None Seen /LPF (None Seen); MUCUS None Seen strn/LPF (None Seen); SQUAMOUS None Seen /LPF (0-3); YEAST-REFLEX Present (None Seen)
[2018-11-07 00:35] LABS: URINE RBC 3-10 Few /HPF (0-2)
--- NOTE | 2018-11-07 03:54 | NUR ---
ASSESSMENTS CHARTED. PATIENT CONTINUES TO DIURESE. WALKED TWICE DURING SHIFT EACH TIME 1 LAP AROUND UNIT. PLAN OF CARE IS TO CONTINUE TO DIURESE.
--- NOTE | 2018-11-07 04:07 | NUR ---
PATIENT ARRIVED FROM ED AT 0133 FOR COMPLICATED UTI. SINUS TACH ON ARRIVAL, PATIENT HAS SUPERPUBIC CATHETER AND OSTOMY. PATIENT HAS PRESSURE WOUNDS ON LEFT ANKLE AND BUTTOCKS. RIGHT ABOVE KNEE AMPUTATION, PARAPLEGIC. C/O CHRONIC BACK PAIN 11/17. PAIN MED GIVEN CHARTED. USING IV ACCESS THAT PATIENT ARRIVED WITH. HX OF MRSA AND CDIFF. PLAN OF CARE FOR PATIENT TO BE SEEN BY DOCTOR IN AM.
--- NOTE | 2018-11-07 16:03 | NUR ---
PT ALERT AND ORIENTED TIMES FOUR. VSS, 99%RA, SR ON TELE, SUPRAPUBIC CATH AND COLOSTOMY TO DD. PT C/O BACK PAIN PRN PAIN MEDICATIONS WITH SOME RELEIF. PT TOLERATES MEDS AND MEALS. PT SLOWLY PROGRESSING TOWRADS POC GOALS.
--- NOTE | 2018-11-08 04:14 | NUR ---
ASSUMED CARE OF PT AT 1900HRS. PT AOX4 AND CALLS FOR HELP NEEDED. PT REPORTED SOME PAIN AND WAS TREATED WITH PRN PAIN MEDS. CAT SCAN WAS COMPLETED. NO OTHER S/S OF ACUTE DISTRESS. WILL CONTINUE TO MONITOR.
[2018-11-08 05:00] VITALS: BP 90/60
[2018-11-08 05:42] LABS: HEMATOCRIT 29.7 % (37.0-47.0); HEMOGLOBIN 9.5 gm/dL (12.0-15.0); MCH 27.2 pg (26.0-34.0); MCHC 32.1 g/dL (28.0-37.0); MCV 84.7 fL (80.0-100.0); RBC 3.51 mil/uL (4.20-5.00); RDW 14.5 % (10.5-14.5); WBC 5.6 thou/uL (4.0-11.0)
[2018-11-08 05:49] LABS: CALCIUM 8.2 mg/dL (8.5-10.1); CREATININE 0.4 mg/dL (0.6-1.0); POTASSIUM 4.2 mmol/L (3.5-5.1)
--- NOTE | 2018-11-08 08:11 | EKG ---
[address] [address] ELECTROCARDIOGRAM REPORT Name: ANDERSENIMMANUEL Room #: 453-P ADM IN M.R.#: [id number] ������������������ Admission: 11/07/18 ������������������ Attend Phys: Roe Naranjo MD Discharge: ������������������ Date of : 83 Report #: [id number] ����������������������������������������������������������������� [id number] THIS REPORT FOR: //name// [facility] ED Test Date: 2018-11-06 Test Time: 21:19:07 Pat Name: IMMANUEL ANDERSEN Department: Room: [facility] Gender: F Sub Prior: : 1985 Requested By: Olivier Son Order Number: [id number] MD: Gopi Van Measurements Intervals [place] Rate: 107 P: 34 [place]: 156 QRS: 108 QRSD: 89 T: 22 QT: 357 QTc: 477 Interpretive Statements Sinus tachycardia Consider RVH w/ secondary repol abnormality Borderline prolonged QT interval Compared to ECG 08/11/2018 21:09:08 No significant changes Electronically Signed On 11-08-2018 8:10:49 CDT by Gopi Van [email or web address] ��������������������������������������������� <ELECTRONICALLY SIGNED> ���������������������������������������� By: Gopi Van MD ��������������������������������������������� 11/08/18 0810 18 18 Gopi Van MD /EPI
[2018-11-08 08:56] VITALS: BP 96/62
--- NOTE | 2018-11-08 09:52 | NUR ---
chart review, pt up in bed with covers pulled over her head. knock and calling of her name she pulled covers back. intro to cm, transition of care and dcp. pt preferrs going by [facility], she is a & o x 3, flat affect and able to make her needs giraldo. dx of paraplegia and rbka. pt reported " live 6mo at [facility]. use wheel chair, have supra pubic cath and ostomy. use hospital bed at facility, shower chair. nurse help with that. sister janiya and son yoel mcguire are the contacted if needed. will go back to [facility]. pt reported had help at home prior to going to [facility] from home. getting rehab and nursing there."/pt. she got on phone to order her lunch and requested to have nurse get her pain medication, pt cont to order lunch and would not rate or as were pain was. cm passed on information to bedside nurse to follow up on co of pain. will cont following as needed for dc needs.
[2018-11-08 14:26] VITALS: BP 101/68
--- NOTE | 2018-11-08 14:30 | NUR ---
PT RESIDES AT [facility] FAXED CLINICAL UPDATE TO FACILITY AND LEFT MSG WITH [facility] THAT UPDATE FAXED AND DCP WILL KEEP FACILITY UPDATED. DCP TO FOLLOW.
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
[2018-11-08 20:49] VITALS: BP 136/85
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
[2018-11-09 04:04] VITALS: BP 105/73
[2018-11-09 07:44] VITALS: BP 105/71
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
--- NOTE | 2018-11-09 12:22 | NUR ---
ASSUMED CARE AT 0700, SHIFT ASSESMENT DONE, MEDS GIVEN, VSS. WENT FOR ANKLE MRI THIS AM. REPORTED PAIN, PRN OXYCODONE GIVEN [address] PULIDO'S ORDER. SUPRAPUBIC FELDER IN PLACE, ILESTMOY IN PLACE. BEDBOUND, WILL CONTINUE TO ASSESS AND ASSIST WITH ADLs NEEDED.
[2018-11-09 14:41] VITALS: BP 120/73
[2018-11-09 19:08] VITALS: BP 114/70
[2018-11-10 03:43] VITALS: BP 105/70
[2018-11-10 07:40] VITALS: BP 130/78
--- NOTE | 2018-11-10 08:16 | NUR ---
PROGRESS PT REPORTS BACK PAIN AT A RATE OF 7 TO 9 TAKING 15 MG OXYCODONE WITH EFFECT PT RESTS AFTER, IV ANTIBIOTICS CONTINUE, SUPRAPUBIC CATHETER INTACT DRAINING LARGE AMOUNT OF CLOUDY YELLOW URINE. ABLE TO ASSIST IN REPOSITIONING. LEFT ANKLE DRESSING AND RIGHTBUTTOCK DRSG REMAIN C/D/I. IV ANTIBIOTICS CONTINUE.
[2018-11-10 15:00] VITALS: BP 104/70
--- NOTE | 2018-11-10 15:52 | NUR ---
CARE TEAM INDICATED THAT IT IS LIKELY THAT PT WILL REMAIN HERE OVER THE WEEKEND. CM TO FOLLOW INDICATED WITH DC PLANNING. IT IS ANTICIPATED THAT PT WILL RETURN TO [facility] ONCE MEDICALLY STABLE.
--- NOTE | 2018-11-10 19:29 | NUR ---
Assumed pt care this am, pt is bed bound and is a paraplegic. Chronic pain is managed with pain medication. Pt refused wound care for both sites and requested this be done at night since she wanted to sleep, endorsed to the night nurse. Suprapubic catheter patent and draining yellow urine, ileostomy free of infection and in place draining light brown stool. POC followed, no signs of distress noted or verbalized.
[2018-11-10 19:43] VITALS: BP 111/68
[2018-11-11 08:00] VITALS: BP 114/72
--- NOTE | 2018-11-11 09:01 | NUR ---
progress pain seems better controlled this shift, pt eating better family brought in food from home and pt eating what family has brought in. pt refused wound care on day shift and had company most of night and refused wound care last night also. iv antibiotics given as ordered, picc line drsg leaking this am to be redressed by day shift, no s/s of infection noted at site still patent.
[2018-11-11 15:00] VITALS: BP 120/82
--- NOTE | 2018-11-11 18:06 | NUR ---
MAIN COMPLAINT TODAY IS LOW BACK AND BILATERAL THIGH PAIN. HAD MODERATE RELIEF WITH OXYCODONE. GOOD OSTOMY OUTPUT. GOOD URINE OUTPUT. DRESSING CHANGED TO LEFT ANKLE. DR. CARDENAS CHANGED DRESSING TO ISCHIUM. PATIENT ASSISTS WITH EMPTYING OSTOMY. EATING BETTER TODAY. BROUGHT IN LUNCH. DRINKING PLENTY OF FLUDIS. IV ANTIBIOTICS CONTINUED ORDERED. MIDLINE LEAKING SO REMOVED. PERIPHERAL IV PLACED IN LEFT FOREARM WITHOUT DIFFICULTY. AFFECT FLAT BUT DID CONVERSE AT TIMES. FALL PRECAUTIONS IN PLACE. HAVE MONITORED CLOSELY.
[2018-11-11 19:20] VITALS: BP 118/76
--- NOTE | 2018-11-12 03:09 | NUR ---
ASSUMED CARE OF PT AT 1900HRS. PT AOX4 AND CALLS FOR HELP NEEDED. PT COMPLAINED OF SOME PAIN AND WAS GIVEN PRN PAIN MEDS. PT WAS ABLE TO GET COMFORTABLE AND GET SOME SLEEP THIS SHIFT. NO OTHER S/S OF ACUTE DISTRESS. WILL CONTINUE TO MONITOR.
[2018-11-12 05:02] VITALS: BP 89/58
[2018-11-12 05:07] LABS: HEMATOCRIT 30.7 % (37.0-47.0); HEMOGLOBIN 9.6 gm/dL (12.0-15.0); MCH 26.4 pg (26.0-34.0); MCHC 31.4 g/dL (28.0-37.0); MCV 83.8 fL (80.0-100.0); RBC 3.66 mil/uL (4.20-5.00); RDW 14.6 % (10.5-14.5); WBC 6.9 thou/uL (4.0-11.0)
[2018-11-12 05:28] LABS: CALCIUM 8.4 mg/dL (8.5-10.1); CREATININE 0.4 mg/dL (0.6-1.0); POTASSIUM 3.7 mmol/L (3.5-5.1)
[2018-11-12 07:40] VITALS: BP 108/68
[2018-11-12 14:09] VITALS: BP 113/72
[2018-11-12 19:41] VITALS: BP 110/67
--- NOTE | 2018-11-12 19:57 | NUR ---
PT A&OX4, VSS, PAIN IN LOWER BACK. PAIN MANAGED WITH MEDICATION. PATIENT COMPLETED I&D TODAY TO LEFT ANKLE, DRESSING C/D/I. DRESSING CHANGED ON RIGHT BUTTOCK TODAY. PATIENT TOLERATING REG DIET. FAMILY AT BEDSIDE TODAY. COLOSTOMY AND ILLEOSTOMY CARE DONE TODAY. WILL CONTINUE TO MONITOR.
--- NOTE | 2018-11-13 01:41 | NUR ---
PATIENT AOX4 MAKES NEEDS KNOWN. PATIENT DRESSING ON THE RIGHT BUTTOCK AND LEFT ANKLE IS C/D/I. PATIENT IS ON ISOLATION. PAIN CONTROLLED THIS SHIFT. PATIENT TURN EVERY TWO HOURS SHE CAN TOLERATE. CALL LIGHT AND PERSONAL ITEMS WITHIN REACH. PATIENT ENCOURAGED FLUIDS. PATIENT IN BED ASLEEP AT THIS TIME BREATHING REGULAR AND UNLABOURED.
[2018-11-13 03:49] VITALS: BP 110/72
[2018-11-13 05:17] LABS: CALCIUM 8.6 mg/dL (8.5-10.1); CREATININE 0.4 mg/dL (0.6-1.0); POTASSIUM 4.2 mmol/L (3.5-5.1)
[2018-11-13 07:24] VITALS: BP 108/62
[2018-11-13 15:39] VITALS: BP 118/79
--- NOTE | 2018-11-13 18:33 | NUR ---
PT A&OX4, VSS, PAIN IN COCCYX. ANTIBIOTICS HUNG ORDERED, WOUND CARE COMPLETED ON COCCYX. PATIENT HAD I&D DONE 11/13/18 ON LEFT ANKLE WOUND, DRESSING STILL C/D/I. ILLEOSTOMY AND CATHETER CARES COMPLETED. PATIENT REFUSED ALL TURNS TODAY. WILL CONTINUE TO MONITOR.
[2018-11-13 19:06] VITALS: BP 114/80
--- NOTE | 2018-11-14 01:53 | NUR ---
PAIN CONTROLLED THIS SHIFT. PATIENT REFUSES TO BE TURNED Q [address]. PATIENT IS ABLE TO EMPTY HER OWN ILESTOMY. SUPRA PUBIC SITE CARE DONE.PATIENT ENCOURAGED FLUIDS. PATIENT IN BED ASLEEP AT THIS TIME BREATHING REGULAR AND UNLABOURED.
[2018-11-14 05:54] LABS: HEMATOCRIT 31.1 % (37.0-47.0); HEMOGLOBIN 9.8 gm/dL (12.0-15.0); MCH 26.6 pg (26.0-34.0); MCHC 31.5 g/dL (28.0-37.0); MCV 84.6 fL (80.0-100.0); RBC 3.68 mil/uL (4.20-5.00); RDW 14.9 % (10.5-14.5); WBC 6.5 thou/uL (4.0-11.0)
[2018-11-14 06:30] LABS: ALBUMIN 1.9 g/dL (3.4-5.0); CALCIUM 8.4 mg/dL (8.5-10.1); CREATININE 0.4 mg/dL (0.6-1.0); TOTAL BILIRUBIN 0.2 mg/dL (<0.1-1.0); TOTAL PROTEIN 8.8 g/dL (6.4-8.2)
[2018-11-14 08:55] VITALS: BP 101/63
[2018-11-14 09:02] VITALS: BP 101/69
--- NOTE | 2018-11-14 18:47 | NUR ---
ASSUMED CARE 0700. ALERT X4 PAIN MANAGED WITH MEDICATION.SUPERPUBIC CATHETER AND ILLEOSTOMEY SELF CARE. BED BATH GIVEN. EDUCATED AND ENCOURAGED PT TO DRINK SUPPLEMENT. FALL PRECATIONS IN PLACE AND CALL LIGHT IN REACH.
[2018-11-14 21:02] VITALS: BP 104/71
--- NOTE | 2018-11-15 03:08 | NUR ---
ASSUMED CARE OF PT AT 1900 HRS. PT AOX4 AND LETS NEEDS BE KNOWN. PT COMPLAINED OF PAIN THIS SHIFT AND WAS GIVEN PRN PAIN MEDS. PT WAS ABLE TO GET COMFORTABLE AND GET SOME SLEEP THIS SHIFT. PT REFUSED TO TURN BUT AGREED TO SHIFT WEIGHT OFTEN. NO OTHER S/S OF ACUTE DISTERESS. WILL CONTINUE TO MONITOR.
[2018-11-15 04:02] VITALS: BP 110/65
[2018-11-15 07:55] VITALS: BP 90/50
--- NOTE | 2018-11-15 12:02 | NUR ---
DISCHARGE PLANNING. PATIENT ADMITTED FROM [facility]. PLAN IS FOR PATIENT TO RETURN TO [facility] ONCE MEDICALLY READY. UPDATED CLINICAL INFORMATION FAXED TO [facility]. CALL PLACED TO [facility] TO NOTIFY, VERIFIED CLINICALS RECEIVED. FOLLOWING TO ASSIST WITH DISCHARGE NEEDS.
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
--- NOTE | 2018-11-15 16:36 | NUR ---
WOUND CARE FOLLOW UP; ROUNDING WITH DR MAXWELL AND JONATHAN POPPED CORN OVEN ATTENDANT. THE RIGHT ISCHIAL TUBEROSITY WOUND WAS ASSESSED WITH NO SIGNIFICANT CHANGES TO WARRENT A DIFFERENT TREATMENT MODALITY. THE LEFT LAT HEEL WOUND IS BEEY RED AND NO S/S OF INFECTION. DURING THE ASSESSMENT OF THE WOUND AND APPLICATION OF A WOUND VAC THE PATIENT SHOWS NO S/S CONSISTANT WITH ANY DISTRESS OR PAIN. SHE WAS WATCHING TV QUEITLY WITH NO COMPLAINTS. RECOMMENDATION; VAC THERAPY TO THE LEFT LAT ANKLE. DISCUSSED WITH ULISES
[2018-11-15 16:54] VITALS: BP 95/56
--- NOTE | 2018-11-15 16:59 | NUR ---
BRENDAN reviewed chart and spoke with nursing and attending physician. Discussed case with dust collector. Pt will have wound vac placed on her left ankle. marketing planner faxed updates to [facility] for review. Plan is for pt to return to [facility] when medically stable. BRENDAN is following to assist as needed with discharge planning.
--- NOTE | 2018-11-15 18:17 | NUR ---
PATIENT PROGRESSING TOWARDS GOALS. ALERT X4, PAIN MANAGED WITH MEDICATIONS, WOUND VAC PLACE TODAY ON LEFT ANKEL AND DRESSING CHANGED TO SCAREL WOUND. ENCOURAGED TURNS TO OFF LOAD WOUND ON SCAREL AREA. CALLS FOR ASSISTANCE. DECLINED ALL NUTRITIONAL SUPPLEMENTS TODAY.
[2018-11-15 20:01] VITALS: BP 98/68
--- NOTE | 2018-11-16 02:18 | NUR ---
ASSUMED CARE OF PT AT 1900HRS. PT AOX4 AND CALLS FOR HELP NEEDED. PT DID COMPLAIN OF PAIN AND WAS TREATED WITH PRN MEDS. WOUNDVAC AND WOUND DRESSING INTACT. NO OTHER S/S OF ACUTE DISTRESS. WILL CONTINUE TO MONITOR.
[2018-11-16 03:54] VITALS: BP 107/72
[2018-11-16 08:00] VITALS: BP 90/62
[2018-11-16 11:34] VITALS: BP 102/63
--- NOTE | 2018-11-16 13:51 | NUR ---
BRENDAN reviewed chart and spoke with nursing and attending physician. Pt has wound vac on left ankle. BRENDAN faxed clinical updates to Max at [facility]. The facility will order a wound vac for pt. Plan is for pt to return to [facility] when medically stable. BRENDAN is following to assist as needed with discharge planning.
[2018-11-16] MEDS ORDERED: LINEZOLID600 MG PO (16:13)
[2018-11-16] MEDS ORDERED: TUMS PO (16:13)
[2018-11-16] MEDS ORDERED: LEXAPRO 10 MG T10 M1 PO (16:13)
[2018-11-16] MEDS ORDERED: OXYCODONE HCL15 MG PO (16:13)
[2018-11-16] MEDS ORDERED: FLUCONAZOLE 10100 MG PO (16:13)
[2018-11-16] MEDS ORDERED: TRAZODONE HCL50 MG PO (16:13)
--- NOTE | 2018-11-16 17:21 | NUR ---
NURSE INDICATED THAT ORDERS WERE ENTERED FOR DISCHARGE. CM CALLED THE FACILITY AND ASKED IF THEY HAD THE WOUND VAC FOR PT ON HAND. THEY INDICATED THEY DIDN'T HAVE IT AT THIS TIME. CM NOTIFIED CARE TEAM. CM TO FOLLOW INDICATED WITH ANTIPCATED DC TOMORROW.
[2018-11-16 17:22] VITALS: BP 110/60
--- NOTE | 2018-11-16 19:46 | NUR ---
Received awake on bed. Due medications given as prescribed- able to swallow tablets w/o difficulty. A+Ox4. On room air. Assisted on ADLs. With episode of low BP this am, asked RESERVOIR ENGINEERING CONSULTANT to repeat BP, BP rechecked w/in normal range. Pt turned regularly. Complained of pain, due PRN medications given as prescribed. Offered supplements but pt declined. With Ileostomy- output measured and recorded accordingly, pt helps with emptying the bag. With suprapubic catheter- draining well. Pt paraplegic. With BKA- stump elevated on a pillow. Pt with wound at left ankle- with wound vac. With pressure ulcer at right buttocks- dressing changed today as per wound team instructions. 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 With SL at L FA- patent, dressing change as it is coming off. Pt seen by Dr Green this PM, discharge orders put in- verified with CM re: facility, still a/w wound vac, possibly to be d/c tomorrow- will let RN know.
[2018-11-16 19:56] VITALS: BP 9/65; BP 98/65
--- NOTE | 2018-11-17 03:09 | NUR ---
Assumed care at 1845. Pt resting in bed. AOX4. VSS. Turned pt Q2H. Reinforced dressing on the Coccyx area. Emptied a total of 270ml liquid stool from ileostomy bag. Left ankle wound dressing intact with hemovac draining. Pt would like the kelly to be changed right before discharge. Will notify the incoming nurse. No identified needs at the moment. Will continue to monitor.
[2018-11-17 07:40] VITALS: BP 104/72
--- NOTE | 2018-11-17 12:07 | NUR ---
DISCHARGE NOTE: SW reviewed chart and spoke with nursing and attending physician. Pt is medically stable for discharge back to [facility] today. [facility] post-acute liaison was onsite earlier today and confirms wound vac will be delivered to [facility] today. Stretcher van transportation scheduled for [id number] per facility's arrangement. Pt aware and agreeable with discharge plan. Nursing to call report. information systems planner faxed orders to facility. No additional SW needs identified at this time, but is available to assist should needs arise.
--- NOTE | 2018-11-17 20:54 | NUR ---
Received awake on bed. Due medications given as prescribed- able to swallow tablets w/o difficulty. A+Ox4. Pt paraplegic- assisted in ADLs. Turned regularly. On room air. With Ileostomy- output measured and recorded accordingly. With suprapubic cathether- draining well. With wound at left ankle- on wound vac. With wound at R buttocks- dressing in place. Pt encouraged to eat and drink, with supplements prescribed but pt refused despite encouragement. With BKA- stump elevated on pillow. With SL at L FA. Complains of constant pain- due PRN medications given as prescribed. Pt maintained on Isolation- with history of Cdiff and MRSA. Vital signs stable. Pt with discharge orders from Dr Green. a/w CM update re: transfer. CM informed me that wound vac to be delivered to facility, pt to be transferred at 1300 to 1330. Pt requested to have Ileostomy bag changed prior to transfer- done. Pt seen by Fernanda, wound vac removed and instructed to have wet to dry dressing then will have wound vac at the facility- verified with her that current wound vac is not from the facility- she said it is not from [place]. Pt hesitinant to be transferred as she verbalized that pain is not addressed- called Dr Green about pt's concerns and said that patient is ok for discharge today, Pt informed that pain meds is on her scripts, pt agreed to be transferred. Pt transported via stretcher with personal belongings on, chart copy, discharge instructions. Report given to staff PING.
== END 2018-11-17 14:40 | DRG 463 ==
LOC: ER 20:58 → 4W 11-07 00:40 → EROBS 11-07 00:40 → 2N 11-07 01:12 → 4W 11-07 18:00
PROVIDERS: Emergency Medicine; Hospitalist; Internal Medicine; Specialist; ADMIT Internal Medicine
DX: M86.9 Osteomyelitis, unspecified (principal); L89.524 Pressure ulcer of left ankle, stage 4; E43 Unspecified severe protein-calorie malnutrition; L89.314 Pressure ulcer of right buttock, stage 4; N39.0 Urinary tract infection, site not specified; G82.20 Paraplegia, unspecified; F19.20 Other psychoactive substance dependence, uncomplicated; J45.909 Unspecified asthma, uncomplicated; G89.4 Chronic pain syndrome; K59.00 Constipation, unspecified; F17.210 Nicotine dependence, cigarettes, uncomplicated; I73.9 Peripheral vascular disease, unspecified; G47.00 Insomnia, unspecified; F32.9 Major depressive disorder, single episode, unspecified; Z86.14 Personal history of Methicillin resistant Staphylococcus aureus infection; Z93.3 Colostomy status; Z89.511 Acquired absence of right leg below knee; Z88.1 Allergy status to other antibiotic agents; Z88.8 Allergy status to other drugs, medicaments and biological substances; Z87.828 Personal history of other (healed) physical injury and trauma; Z68.29 Body mass index [BMI] 29.0-29.9, adult; Z79.891 Long term (current) use of opiate analgesic
CPT/HCPCS: 10047; 27000; 50010; 50101; 50386; 57091; 57178; 62110; 62850; 70005

== ENCOUNTER 2018-11-28 05:03 | Emergency (ER) | payer OTHER ==
[~2018-11-28] VITALS: Ht 167.6 cm; Wt 68.5 kg
[~2018-11-28 05:03] MED LIST changes: +FLUCONAZOLE 10100 MG PO; +LEXAPRO 10 MG T10 M1 PO; +LINEZOLID600 MG PO; +TRAZODONE HCL50 MG PO
[2018-11-28] MEDS ORDERED: PROBIOTIC1 EAC1 PO (05:19)
[2018-11-28] MEDS ORDERED: NICOTINE TRANSD14 M1 TRANSDERM (05:20)
[2018-11-28] MEDS ORDERED: ELIQUIS2.5 MG PO (05:21)
[2018-11-28] MEDS ORDERED: BENADRYL25 MG PO (05:22)
[2018-11-28 06:20] LABS: ABSOLUTE NEUTROPHILS 3.4 thou/uL (1.4-8.2); EOSINOPHILS 1.7 % (0.0-3.0); HEMATOCRIT 29.1 % (37.0-47.0); HEMOGLOBIN 9.5 gm/dL (12.0-15.0); LYMPHOCYTES 36.2 % (24.0-44.0); MCH 27.4 pg (26.0-34.0); MCHC 32.7 g/dL (28.0-37.0); MCV 83.7 fL (80.0-100.0); MONOCYTES 7.2 % (1.0-8.0); PLATELET COUNT 528 thou/uL (150-400); POLYS 53.9 % (36.0-66.0); RBC 3.48 mil/uL (4.20-5.00); RDW 16.1 % (10.5-14.5); WBC 6.3 thou/uL (4.0-11.0)
[2018-11-28 06:28] LABS: CREATININE 0.4 mg/dL (0.6-1.0); POTASSIUM 3.4 mmol/L (3.5-5.1)
[2018-11-28 06:34] LABS: DIRECT BILIRUBIN 0.1 mg/dL (<0.1-0.3); TOTAL BILIRUBIN 0.2 mg/dL (<0.1-1.0); TOTAL PROTEIN 8.6 g/dL (6.4-8.2)
[2018-11-28 06:37] LABS: URINE BILIRUBIN NEGATIVE (Negative); URINE BLOOD TRACE (Negative); URINE COLOR YELLOW; URINE GLUCOSE-RANDOM* NEGATIVE (Negative); URINE KETONES NEGATIVE (Negative); URINE NITRITE-REFLEX NEGATIVE (Negative); URINE PROTEIN (DIPSTICK) NEGATIVE (Negative); URINE SPECIFIC GRAVITY 1.025 (1.005-1.035); URINE UROBILINOGEN 0.2 E.U./dl (0.2-1.0)
[2018-11-28 06:39] LABS: URINE CLARITY HAZY; URINE LEUKOCYTES-REFLEX 2+ (Negative)
[2018-11-28 07:04] LABS: SQUAMOUS 4-10 Moderate /LPF (0-3)
[2018-11-28 07:05] LABS: CASTS None Seen /LPF (None Seen); CRYSTALS None Seen /LPF (None Seen); MUCUS 0-3 Light strn/LPF (None Seen); URINE WBC-REFLEX >25 Many /HPF (0-5)
[2018-11-28 07:06] LABS: URINE RBC 0-2 Rare /HPF (0-2); YEAST-REFLEX Present (None Seen)
[2018-11-28 10:30] VITALS: BP 114/71
== END 2018-11-28 10:35 | disposition home or self-care (01) ==
LOC: ER 05:03
PROVIDERS: Emergency Medicine
DX: Z43.3 Encounter for attention to colostomy (principal); J45.909 Unspecified asthma, uncomplicated; F32.9 Major depressive disorder, single episode, unspecified; F17.210 Nicotine dependence, cigarettes, uncomplicated; Z88.1 Allergy status to other antibiotic agents; Z88.8 Allergy status to other drugs, medicaments and biological substances

== ENCOUNTER → 2018-12-01 | Outpatient (CLI) | payer OTHER ==
[~2018-12-01] MED LIST changes: +ELIQUIS2.5 MG PO; +NICOTINE TRANSD14 M1 TRANSDERM; +PROBIOTIC1 EAC1 PO
== END ==
LOC: HYPER 11-22 08:45
DX: L89.524 Pressure ulcer of left ankle, stage 4 (principal); L89.214 Pressure ulcer of right hip, stage 4; G82.20 Paraplegia, unspecified; A49.02 Methicillin resistant Staphylococcus aureus infection, unspecified site; Z93.3 Colostomy status; F17.200 Nicotine dependence, unspecified, uncomplicated

== ENCOUNTER 2018-12-27 07:04 | Inpatient (IN) | payer OTHER ==
[~2018-12-27] VITALS: Ht 157.5 cm; Wt 77.9 kg
--- NOTE | ~2018-12-27 | HC ---
[facility] [place] [address] CONSULTATION Name: IMMANUEL ANDERSEN Room #: 451-P ADM IN M.R.#: [id number] Admission: 12/27/18 Attend Phys: Azam Witt MD Discharge: Date of : 81 Report #: [id number] THIS REPORT FOR: //name// CC: Azam Zhang [facility] unknown DATE OF SERVICE: 12/30/2018 REASON FOR CONSULTATION: Nonhealing ulceration, left lateral fibular malleolus. HISTORY OF PRESENT ILLNESS: The patient readmitted for nonhealing ulcerations to lumbosacral region and left lateral malleolus. She had debridement of the right ischial tuberosity wound with soft tissue and bone cultures yesterday. I had previously debrided the left lateral malleolar wound on 11/12/2018, roughly 6 weeks ago. The surgical tissue cultures grew Corynebacterium species. She is currently on minocycline 100 mg p.o. b.i.d. with good tolerance. Yesterday's ischial bone and tissue cultures are pending. The patient is paraplegic and status post right BK amputation. PHYSICAL EXAMINATION: Large ulceration to the left lateral malleolus roughly 4.0 x 3.0 x 0.8 cm. The distal fibula was exposed with no elizabeth necrosis or lysis. There is scant granular type tissue and fibrin products slough over the distal fibula with no underlying fluctuance, crepitation or expressible purulence. The periwound skin is mildly inflamed. There is no necrosis or signs of acute vascular embarrassment. The wound does not appear to communicate directly to the ankle joint, as there are tissue overlying the anterior aspect of the fibula and lateral talar shoulder. The peroneal tendons are not visible. IMPRESSION: Chronic ulceration, left fibular malleolus, possible osteomyelitis. PLAN: I ordered a ankle radiographs and MRI with contrast to evaluate for osteomyelitis. The patient may require resection of the distal fibula versus left BK amputation or chronic suppressive antibiotics. I will follow the patient after MRI report is available. By: [id number] Juan M Addison DPM /cara
[2018-12-27 13:25] VITALS: BP 93/58
[2018-12-27 14:35] LABS: ABSOLUTE NEUTROPHILS 5.1 thou/uL (1.4-8.2); BASOPHILS 1.5 % (0.0-2.0); EOSINOPHILS 1.7 % (0.0-3.0); HEMATOCRIT 34.2 % (37.0-47.0); HEMOGLOBIN 10.7 gm/dL (12.0-15.0); LYMPHOCYTES 25.3 % (24.0-44.0); MCH 25.6 pg (26.0-34.0); MCHC 31.4 g/dL (28.0-37.0); MCV 81.5 fL (80.0-100.0); PLATELET COUNT 723 thou/uL (150-400); POLYS 62.5 % (36.0-66.0); RBC 4.19 mil/uL (4.20-5.00); RDW 16.8 % (10.5-14.5); WBC 8.2 thou/uL (4.0-11.0)
[2018-12-27] MEDS ORDERED: OXYCODONE HCL15 MG PO (14:41)
[2018-12-27] MEDS ORDERED: FLEXERIL PO (14:42)
[2018-12-27 14:47] LABS: CALCIUM 8.8 mg/dL (8.5-10.1); CREATININE 0.5 mg/dL (0.6-1.0); POTASSIUM 3.8 mmol/L (3.5-5.1); TOTAL BILIRUBIN 0.4 mg/dL (<0.1-1.0); TOTAL PROTEIN 9.7 g/dL (6.4-8.2)
--- NOTE | 2018-12-27 15:39 | NUR ---
PATIENT REQUESTING A MIDLINE- REFUSING PIV. SHE IS A DIFFICULT STICK AND HAS HAD MANY MIDLINE/PICC. A #4F POWERMIDLINE WAS PLACED PER HOSPITAL POLICY. LINE TRIMMED TO 10CM AND ADVANCED WITH 3CM EXTERNAL. +BR AND +FLUSH. LINE SECURED AND RELEASED FOR USE.
--- NOTE | 2018-12-27 18:09 | NUR ---
PT ARRIVED DIRECT ADMIT FROM DR. ALONZO. ORDERS IMPLEMENTED, CONSULTS CALLED, ADMISSION HX, EDUCATION AND ASSESSMENT COMPLETE. WOUND PHOTOS COMPLETED AND DRESSINGS CHANGED. PT RESTING COMFORTABLY.
[2018-12-27 19:07] VITALS: BP 90/55
[2018-12-28 01:02] LABS: URINE BILIRUBIN NEGATIVE (Negative); URINE BLOOD TRACE (Negative); URINE CLARITY CLEAR; URINE COLOR YELLOW; URINE GLUCOSE-RANDOM* NEGATIVE (Negative); URINE KETONES NEGATIVE (Negative); URINE PROTEIN (DIPSTICK) 2+ (Negative); URINE SPECIFIC GRAVITY <= 1.005 (1.005-1.035)
[2018-12-28 01:21] LABS: URINE LEUKOCYTES-REFLEX 3+ (Negative); URINE NITRITE-REFLEX POSITIVE (Negative)
[2018-12-28 01:25] LABS: AMORPHOUS PHOSPHATES Moderate /LPF (None Seen); BACTERIA-REFLEX >30 Many /HPF (None Seen); CASTS None Seen /LPF (None Seen); MUCUS 0-3 Light strn/LPF (None Seen); SQUAMOUS 0-3 Few /LPF (0-3); URINE RBC 0-2 Rare /HPF (0-2); URINE WBC-REFLEX None Seen /HPF (0-5)
[2018-12-28 01:26] LABS: TRIPLE PHOSPHATE CRYSTALS 4-10 Moderate /LPF (None Seen)
--- NOTE | 2018-12-28 01:26 | NUR ---
patient aox4 makes needs known. UA collected and sent to the lab. pain controlled this shift. patient refused wound care. patient refused to be turned q 2 hours. patient takes care of her colostomy bag. cath care done. wound dressing on left ankle and right ischial is c/d/i.patient in bed asleep at this time breathng regular and unlabourd.
[2018-12-28 04:24] VITALS: BP 84/55
[2018-12-28 04:25] VITALS: BP 78/40
[2018-12-28 05:48] LABS: ABSOLUTE NEUTROPHILS 2.5 thou/uL (1.4-8.2); BASOPHILS 0.8 % (0.0-2.0); EOSINOPHILS 3.2 % (0.0-3.0); HEMATOCRIT 30.4 % (37.0-47.0); HEMOGLOBIN 9.4 gm/dL (12.0-15.0); LYMPHOCYTES 49.5 % (24.0-44.0); MCH 25.3 pg (26.0-34.0); MCV 81.4 fL (80.0-100.0); MONOCYTES 8.9 % (1.0-8.0); POLYS 37.6 % (36.0-66.0); RBC 3.73 mil/uL (4.20-5.00); WBC 6.7 thou/uL (4.0-11.0)
[2018-12-28 05:53] LABS: PLATELET COUNT 644 thou/uL (150-400)
[2018-12-28 05:56] LABS: CALCIUM 8.3 mg/dL (8.5-10.1); CREATININE 0.4 mg/dL (0.6-1.0); MAGNESIUM 1.8 mg/dL (1.8-2.4); POTASSIUM 3.4 mmol/L (3.5-5.1)
[2018-12-28 08:08] VITALS: BP 90/60
--- NOTE | 2018-12-28 10:24 | NUR ---
Pt has limited food preferences and wants same meals every day. Recommend add a MVI supplement daily.
--- NOTE | 2018-12-28 10:58 | NUR ---
VASCULAR ACCESS CALLED FELICITAS MIDLINE PAINFUL AND LEAKING, FLUIDS RUNNING AT 1000ML/HR. ML REMOVED. PT AGREEABLE TO NEW MIDLINE.SAMSON BRACHIAL WIDELY PATENT ,ML TRIMMED TO 10ML INSERTED TO 0CM PER HOSPITAL P&P. POWER MIDLINE RELEASED FOR IMMEDIATE USE PER PROTOCOL SHARIF MONTGOMERY
--- NOTE | 2018-12-28 14:02 | NUR ---
PT ADMITTED RELATED TO WOUND. CM REVIEWED CHART AND SPOKE WITH CARE TEAM. CM MET WITH PT AT BEDSIDE THIS DAY. PT IS A&O X4. CM ROLE INTRODUCED. PT INDICATED SHE LIVES IN LTC AT [facility]. PT INDICATED THAT SHE USED A POWER WC TO ASSIST WITH MOBILITY HAND GLUER AND SLICER. PT INDICATED SHE PLANS TO RETURN TO THE FACILITY ONCE MEDICALLY STABLE. CM TO FOLLOW INDICATED WITH DC PLANNING.
[2018-12-28 14:50] VITALS: BP 92/61
--- NOTE | 2018-12-28 17:49 | NUR ---
Assumed pt care this am, pt is bed bound and a para plegic. Tavo right BKA left leg in a boot, wound cultures done and sent down. Pt initially complained of mid line hurting informed IV team, bolus of IV fluids initiated fluids were infusing with no issues initally then line leaked, informed IV team. Reinsertion of a new PICC line was intiated, IV fluids restarted. Pain managed with medication. FC intact draining yellow urine. Consent signed for tomorrows procedure with Dr. Watt, NPO at midnight onwards. Colostomy site care done. POC followed no other signs or verbalizations of distress have been noted. Wound care done.
[2018-12-28 19:00] VITALS: BP 98/64
--- NOTE | 2018-12-29 00:46 | NUR ---
PAIN CONTROLLED THIS SHIFT. PATIENT IS NPO. TURNED Q 2 HOURS PATIENT CAN TOLERATE. PATIENT REFUSED SCD. DRESSING DONE ON RIGHT ISCIAL, NO ODOR, DRAINAGE NOTED, WOUND BED IS PINK IN COLOR. LEFT ANKLE WOUND DRESSING IS C/D/I. PATIENT IS ON ISOLATION. PATIENT IN BED ASLEEP AT THIS TIME BREATHING REGULAR AND UNLABOURED.
[2018-12-29 03:18] VITALS: BP 92/62
[2018-12-29 08:36] VITALS: BP 120/76
--- NOTE | 2018-12-29 12:17 | NUR ---
DISCHARGE PLANNING. PATIENT ADMITTED FROM [facility]. PLAN IS FOR PATIENT TO RETURN TO [facility] ONCE MEDICALLY READY. CLINICAL INFORMATION FAXED TO [facility] ADMISSIONS/LOG GRADER. CALL PLACED TO HER TO NOTIFY. FOLLOWING TO ASSIST WITH DISCHARGE NEEDS.
[2018-12-29 12:36] VITALS: BP 109/69
--- NOTE | 2018-12-29 16:19 | NUR ---
PT HAD I&D THIS DAY. PLAN IS FOR PT TO RETURN TO [facility] ONCE MEDICALLY STABLE. UPDATES WERE SENT TO FACILITY. CM TO FOLLOW INDICATED WITH DC PLANNING.
--- NOTE | 2018-12-29 19:06 | HC ---
[facility] [place] [address] CONSULTATION Name: IMMANUEL ANDERSEN CODY Room #: 451-P ADM IN M.R.#: [id number] Admission: 12/27/18 Attend Phys: Azam Witt MD Discharge: Date of : 81 Report #: [id number] THIS REPORT FOR: //name// CC: Azam Zhang [facility] unknown DATE OF SERVICE: 12/28/2018 INFECTIOUS DISEASE CONSULTATION REASON FOR CONSULTATION: I was asked to evaluate concerning right ischial decubitus and left lateral ankle decubitus infection. HISTORY OF PRESENT ILLNESS: A 33-year-old paraplegic last 5 years. She has been in and out of the hospital multiple times due to her pressure wounds. In November she was in with multidrug resistant, Acinetobacter identified from her wound bed. Treated with minocycline. 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 Lives in a detention. Did not think she turns very well. Smokes cigarettes. She has had progressive decline involving her pressure areas. She had a previous right BKA. No fever, chills or sweats. No other GI or complaints. She does have a colostomy and a suprapubic catheter. REVIEW OF SYSTEMS: A 10-point review of systems is otherwise negative. PAST MEDICAL HISTORY: Lumbar fracture in 2013, asthma, depression, recurrent urinary tract infection, C. difficile, MRSA colonization, chronic pain syndrome, right below knee amputation, paralysis 2014, colostomy. ALLERGIES: TRAMADOL, VANCOMYCIN. Reports mild confusion on vancomycin. MEDICATIONS: As noted on her MAR, which were reviewed. Currently off antibiotics. FAMILY HISTORY: Noncontributory. SOCIAL HISTORY: She is a smoker. No significant alcohol intake. PHYSICAL EXAMINATION: VITAL SIGNS: Afebrile, hemodynamically stable. GENERAL: She is alert, cooperative and pleasant, in no acute distress. Right ischial wound was dressed as well as the left lateral ankle wound. No surrounding cellulitis. EYES: Without scleral icterus. MOUTH: Without mucositis. CHEST: Clear. [facility] [address] [place] [address] CONSULTATION Name: IMMANUEL ANDERSEN [facility] Room #: 451-P ADM IN M.R.#: [id number] Admission: 12/27/18 Attend Phys: Azam Witt MD Discharge: Date of : 81 Report #: [id number] HEART: Regular, without murmur, gallop or rub. ABDOMEN: Soft and nontender with no hepatosplenomegaly or mass. Paralysis below the waist. NEUROLOGIC: Mood normal. Mental status normal. LABORATORY STUDIES: Reviewed. Urine culture and superficial wound culture pending. IMPRESSION: Paraplegic with chronic pressure wounds, right ischium and left ankle. Polymicrobial multidrug resistant organisms identified. She has had progressive wounds despite previous antibiotic therapy and wound care. RECOMMENDATIONS: We will observe off antibiotics, pending surgical debridement planning for tomorrow. We will obtain deep tissue cultures and then begin empiric antibiotic therapy using Zyvox and minocycline to start. <ELECTRONICALLY SIGNED> By: Juan M Zhang MD 12/29/18 [id number] Juan M Zhang MD /nt
--- NOTE | 2018-12-29 19:49 | NUR ---
Assumed pt care this am, pt was on npo for procedure which was completed today. Suprapubic cat patent and draining light yellow urine. Refused SCD's, dressing is dry and intact. Isolation maintained, Q2 turn done. Pain managed with medications, Pt verbalized that she does not want to return to [facility] and would like to discuss her options with the case finishing machine adjuster, endorsed to the night nurse to inform the day nurse to follow through. POC followed, no signs of distress have been verbalized or noted. POC followed.
[2018-12-29 20:43] VITALS: BP 130/65
[2018-12-30 03:01] VITALS: BP 138/72
--- NOTE | 2018-12-30 04:23 | NUR ---
Pt. rested quietly at intervals during the night when checked on during frequent rounds. She c/o chronic pain to her right hip area and back. Pt. has been medicated for pain (see emar) with no to little relief noted. Her dressing to the right hip/buttocks area has moderate amount of serous drainage. Dressing is intact. Bed alarm is on.
--- NOTE | 2018-12-30 12:04 | NUR ---
SURGEON ROUNDED ON PT AND STATED WOUND DR AND WOUND RN WILL ADDRESS DRESSING CHANGE NEEDS FOR R HIP/BUTTOCK WOUND. SPOKE WILL JONATHAN WOUND RN AND SHE IS AWARE OF THIS AND STATES PODIATRY WILL ADDRESS L ANKLE WOUND NEEDS. WILL CONTINUE TO MONITOR. PT.
[2018-12-30] MEDS ORDERED: MINOCIN50 MG PO (14:34)
--- NOTE | 2018-12-30 15:19 | HC ---
[facility] [place] [address] CONSULTATION Name: IMMANUEL ANDERSEN CODY Room #: 451-P ADM IN M.R.#: [id number] Admission: 12/27/18 Attend Phys: Azam Witt MD Discharge: Date of : 81 Report #: [id number] THIS REPORT FOR: //name// CC: Azam [facility] unknown DATE OF SERVICE: 12/28/2018 WOUND CARE CONSULTATION PERSONAL PHYSICIAN: Not on staff. CHIEF COMPLAINT: Right ischial decubitus ulcer, stage 4 and left lateral decubitus ulcer, stage 4. HISTORY OF PRESENT ILLNESS: This is a 33-year-old paraplegic female who has been a patient of ours in the past for the right ischial decubitus ulcer. The patient had multidrug resistant Acinetobacter at her last visit. The patient has been currently on minocycline. The patient resides in a fpc facility and they noticed that the ischial ulcer in the left lateral ankle ulcer seemed to be getting worse, which prompted them to send her to the Emergency Department and be admitted to the hospital. The patient has no pain sensation in her lower extremities. The patient denies any other new ulcerations that have started. The patient states she still smokes cigarettes daily. PAST MEDICAL HISTORY: Significant for paralysis in 2013, previous colostomy, [id number] amputation on the right secondary to osteomyelitis, depression, asthma, recurrent urinary tract infections. CURRENT MEDICATIONS: Multiple, I reviewed the patient's medication list. The patient had been taking minocycline, but supposedly has not taken any antibiotics recently. DRUG ALLERGIES: TRAMADOL, VANCOMYCIN. SOCIAL HISTORY: The patient continues to smoke 1 pack of cigarettes daily. Lives in a fpc. FAMILY HISTORY: Not pertinent to current medical condition. REVIEW OF SYSTEMS: CONSTITUTIONAL: The patient denies fevers or chills. NEUROLOGIC: The patient complains of generalized weakness with associated paralysis of the lower extremities. EYES: No complaints. [facility] [address] [place] [address] CONSULTATION Name: IMMANUEL ANDERSEN CODY Room #: 451-P [facility] IN ..#: [id number] Admission: 12/27/18 Attend Phys: Azam Witt MD Discharge: Date of : 81 Report #: [id number] ENT: No complaints. CARDIAC: The patient denies chest pain, palpitations, peripheral edema. RESPIRATORY: The patient denies shortness of breath, cough or wheezes. GASTROINTESTINAL: The patient denies nausea, vomiting, abdominal pain. GENITOURINARY: The patient has recurrent urinary tract infections. MUSCULOSKELETAL: No complaints. SKIN: The patient has decubitus ulcer in the right ischial tuberosity region as well as the left lateral ankle. PHYSICAL EXAMINATION: VITAL SIGNS: Temperature 36.8, pulse 95, respirations 18, BP 130/65. GENERAL: This is an alert and oriented x 3, well-developed black female who is in mild distress secondary to symptoms. HEENT: Normocephalic, atraumatic. Mucous membranes are dry. Pupils are round. Sclerae white. NECK: Supple, nontender. LUNGS: Clear. HEART: Regular. ABDOMEN: Obese, soft, nontender. EXTREMITIES: Evaluation of right ischial region reveals a stage 4 decubitus ulcer, which is mix of approximately 80% granulation tissue, 20% loose slough. Bone is palpable, however, seems to be covered with granulation tissue. There is moderate serosanguineous drainage noted with slight odor. Periwound is intact with no tunneling. Evaluation of left lateral ankle reveals a decubitus ulcer with over the area of the left lateral malleolus with bone palpable. Approximately 80% slough, 20% granulation tissue without significant tunneling. Periwound is mildly macerated. Right [id number] amputation stump site is intact. NEUROLOGIC: Cranial nerves 2-12 are grossly intact. The patient is paralyzed. LABORATORY DATA: White count 6.7, hemoglobin 9.4, albumin 2.0. Previous MRI approximately 4 weeks ago showed osteomyelitis in the left lateral malleolus. WOUND CARE COURSE: I spoke at length with the patient. At this point in time, the patient is going to need operative debridement, clean up both these decubitus ulcers. Infectious Disease has been consulted. They will see the patient and evaluate for possible antibiotic coverage. We will make sure we maximize the patient's oral protein supplementation for healing. We will utilize physical and occupational therapy as the patient is able. Continue all other current medications. IMPRESSION: 1. Stage 4 right ischial decubitus ulcer with early infection. 2. Stage 4 decubitus ulcer, left lateral malleolus. 3. Paraplegia. 4. Protein-calorie malnutrition-severe with albumin 2.0. [address] [address] CONSULTATION Name: ANDERSENIMMANUEL DIAMOND CODY Room #: 451-P ADM IN M.R.#: [id number] Admission: 12/27/18 Attend Phys: Azam Witt MD Discharge: Date of : 81 Report #: [id number] 5. Generalized debility secondary to paralysis. 6. History of recurrent urinary tract infections. PLAN: Described in length as above. I appreciate ability to consult. We will continue to follow the patient. <ELECTRONICALLY SIGNED> By: José Miguel Galvan MD 12/30/18 [id number] José Miguel Galvan MD /nt
[2018-12-30 15:50] VITALS: BP 113/60
--- NOTE | 2018-12-30 17:18 | NUR ---
CRE TEAM HAD INDICATED THAT PT WAS MEDICALLY STABLE TO DC THIS DAY BUT PT WAS TO BE SEEN BY PODIATRY. DR. GRAY SAW PT AND IS GOING TO DO REPEAT MRI AND INDICATED SHE MAY NEED RESECTION OF DISTAL FIBULA, BKA, OR CHRONIC SUPPRESSIVE ABX. CM TO FOLLOW INDICATED WITH DC PLANNING.
[2018-12-30 19:48] VITALS: BP 120/75
--- NOTE | 2018-12-30 20:30 | NUR ---
ASSUMED CARE AT 0700. PT A&OX4. PT C/O OF CONTINOUS PAIN. PT GIVEN PRN PAIN MEDS ORDERED, SEE MAR. PT SEEN BY MICROBIOLOGICAL ANALYST, PT TO HAVE MRI TOMORROW. WOUND CARE DONE ORDERED. PT OFFERED TO TURN Q2 HOURS. PT REFUSES MOST TURNS.
[2018-12-31 03:57] VITALS: BP 90/54
[2018-12-31 06:23] VITALS: BP 110/70
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
--- NOTE | 2018-12-31 07:22 | NUR ---
ASSUMED CARE AROUND 1900. AXOX4. L ANKLE DRESSING CDI. PT REFUSED L ANKLE DRESSING CHANGE D/T WOUND CARE WAS DONE LATE AFTERNOON. R BUTTOCK DRESSING CHANGE ALSO DONE LATE IN THE AFTERNOON. AROUND 4AM DRESSING NOTED WITH DRAINAGE. PT AGREED FOR WOUND CARE. RENDERED AT BEDSIDE. SUPRAPUBIC CATHETER AND COLOTOMY INTACT. COLOSTOMY CARE COMPLETED AROUND 4AM ALSO. LOW GRADE FEVER. NOT HIGH ENOUGH TO TX. MONITORED. NO S/S ACUTE DISTRESS NOTED OR REPORTED AT THIS TIME. CARE TRANSFERRED TO INCOMING RN AT THIS TIME.
[2018-12-31 08:04] VITALS: BP 103/64
--- NOTE | 2018-12-31 14:07 | PATH ---
[facility] [address] [address] [place] [address] PATHOLOGY RPT PROCEDURE Name: ORLANDO ANDERSEN CODY Room #: 451-P ADM IN M.R.#: [id number] Admission: 12/27/18 Date of : 81 Discharge: Report #: [id number] Path Case #: [id number] LCA Accession Number: [id number] . 01 Material submitted: . PART A: humerus - BONE FROM RIGHT TUBAL ISCHIAL TUBEROSITY. Modifiers: right PART B: hip - RIGHT ISCHIAL TUBEROSITY SOFT TISSUE. Modifiers: right . 01 Clinical history: . Sacral wound . 02 Diagnosis: A. "Bone from right ischial tuberosity", removal: - Portions of bone with fibrosis of marrow space. - Separate portions of fibrous tissue with mild chronic inflammation. . B. Skin and subcutaneous tissue, "right ischial tuberosity soft tissue", removal: - Portion of skin with ulceration and acute and chronically inflamed granulation tissue. (COREY:sundeep; 12/31/2018) QMS/12/31/2018 . 02 Electronically signed: . Anton Shelley MD, Pathologist NPI- [id number] . 01 Gross description: . A. The specimen is received in formalin, labeled "Orlando Andersen, bone from right ischial tuberosity" and consists of multiple segments of pink-forman rubbery tissue and bone measuring 4.3 x 3.4 x 0.6 cm in aggregate. A distribution sales representative portion is submitted in A1 following decalcification. . B. The specimen is received in formalin, labeled "Orlando Andersen, right ischial tuberosity soft tissue" and consists of 4 segments of brown skin with underlying necrotic pink-forman tissue measuring 9.3 x 8.8 x 1.5 cm. Band Bias Machine Operator sections are submitted in B1. (SDY; 12/29/2018) SYU/SYU . 02 Pathologist provided ICD-10: L08.9, L98.8 . 02 CPT . 749015, 576592, 165169 [address] [address] PATHOLOGY RPT PROCEDURE Name: ORLANDO ANDERSEN [facility] Room #: 451-P [facility] IN M.R.#: [id number] Admission: 12/27/18 Date of : 81 Discharge: Report #: [id number] Path Case #: [id number] Specimen Comment: A courtesy copy of this report has been sent to Specimen Comment: [phone], . Specimen Comment: Report sent to / DR SY Performed at: [address], [place], [place] [id number] MD Alen Erwin MD Phone: [phone] Performed at: [address], [place], [place] [id number] MD Mackenzie Restrepo MD Phone: [phone]
[2018-12-31 20:12] VITALS: BP 90/57
--- NOTE | 2018-12-31 20:25 | NUR ---
PATIENT ALERT AND ORIENTED AND COOPERATIVE. MRI COMPLETED THIS AFTERNOON. PATIENT REQUESTING PAIN MEDS FOR BACK AND LEFT LEG. POSSIBLE DISCHARGE TOMORROW TO [facility].
--- NOTE | 2019-01-01 03:18 | NUR ---
PATIENT ALERT AND ORIENTED X4. DRESSING TO LEFT FOOT DRY AND INTACT. MEDICATED FOR PAIN PER REQUEST WITH GOOD RESULTS. COLOSTOMY WITH THICK SOFT LIGHT BROWN STOOL. URINE TO D/D PER SUPRAPUBIC CATHETER LIGHT LARS. TURNED FREQUENTLY. IVF INFUSING W/O COMPLICATION. RESTING QUIETLY. WILL MONITOR.
[2019-01-01 05:01] VITALS: BP 103/61
[2019-01-01 08:05] VITALS: BP 84/52
--- NOTE | 2019-01-01 10:48 | NUR ---
Received awake on bed. Due medications given as prescribed. A+Ox4. Complained of pain, due PRN pain medications. With Colostomy in place- intact, output measured and recorded accordingly; stoma-pink and moist. With suprapubic catheter in place- output measured and recorded accordingly. With leg dressings in place- C/D/I. On room air- saturating at 98%. With midline at R upper arm- NS at 125cc/hr infusing well. Maintained on isolation due to MRSA of wound. Pt turned regularly. Able to tolerate diet, no signs of nausea, vomiting and abdominal pain noted.
[2019-01-01 21:28] VITALS: BP 106/57
[2019-01-02 10:03] VITALS: BP 105/71
--- NOTE | 2019-01-02 16:06 | NUR ---
ASSUMED CARE AT 0700. PT COMPLAINS OF PAIN IN BACK AND R BUTTOCK. PT WAS OFFERED TO BE TURNED Q2 HOURS. PT STATES SHE WILL ASK US WHEN SHE WANTS TO TURN BECAUSE OF THE AMOUNT OF PAIN EACH SIDE CAUSES HER. PT IS CURRENTLY TILTED ON RIGHT HIP WITH USE OF WEDGE PILLOW PER HER REQUEST. PT STATES SHE CANNOT TOLERATE R SIDE DUE TO PRESSURE ULCER ON BUTTOCK AND CANNOT TOLERATE LEFT SIDE DUE TO PRESSURE ULCER AND PAIN IT CAUSES ON L LAT ANKLE. PT GIVEN IV AND PO PRN PAIN MEDICATIONS PER ORDER FOR PAIN. WOUND CARE DONE TO R BUTTOCK AND L LAT HEEL. DAKINS SOAKED KERLIX PACKED INTO BOTH WOUNDS, COVERED WITH ABD PAD AND TAPE. L LAT ANKLE WRAPPED IN DRY KERLIX AND SOFT HEEL PROTECTOR BOOT REPLACED. NEW LINENS CHANGED ON BED. FELDER BAG LEAKING ON FLOOR. BAG HAD HOLE IN BOTTOM OF BAG AND BAG REPLACED WITH NEW BAG.
[2019-01-02 19:34] VITALS: BP 121/73
[2019-01-03 04:13] VITALS: BP 122/80
--- NOTE | 2019-01-03 04:27 | NUR ---
PATIENT ALERT AND ORIENTED X4. FREQUENT TURNS WHEN PATIENT ALLOWS. SUPRAPUBIC CATHETER TO D/D WITH YELLOW URINE. COLOSTOMY BAG CHANGED WITH PATIENT AND NURSE. MULTIPLE C/O PAIN RANGING FROM 7-8. PATIENT WILL REQUEST MORPHINE AND APPROX. 1/2 HOUR TO 1 HOUR LATER REQUEST OXYCODONE. PAIN REQUEST ARE FREQUENTLY 4 HOURS APART BY THE CLOCK. STATES THAT SHE IS HURTING MORE SINCE SHE CAME INTO THE HOSPITAL THIS VISIT. PATIENT TOLD THIS NURSE THAT SHE WILL BY LEAVING TODAY RETURNING TO HER FACILITY. THIS NURSE EXPRESSED CONCERN THAT SHE HAVE A TALK WITH HER DOCTOR REGARDING HER PAIN MANAGEMENT SHE WILL MORE THAN LIKELY NOT BE RECEIVING IVP MEDICATION AT HER FACILITY. WILL MONITOR.
[2019-01-03 08:00] VITALS: BP 106/70
--- NOTE | 2019-01-03 09:34 | NUR ---
Request physician order for MVI, vitamin C, and zinc sulfate due to pts limited food preferences and intake to support wound healing nutrition requirements.
--- NOTE | 2019-01-03 10:17 | NUR ---
Received awake on bed. Due medications given as prescribed, able to swallow tablets w/o difficulty. A+Ox4. With midline in place at R upper arm - intact and flushing well, NS at 125cc/hr infusing. Complained of pain, due PRN pain medication given as prescribed. Assisted in ADLs. Turned frequntly. With suprapubic catheter in place- output measured and recorded accordingly. With colostomy bag in place, stoma- pink and moist- output measured and recorded accordingly. With wound at lower extremities, dressing C/D/I. Vital signs stable.
[2019-01-03 15:00] VITALS: BP 108/74
[2019-01-03 19:36] VITALS: BP 108/74
[2019-01-04] VITALS (11 sets, daily range): BP systolic 97–120; BP diastolic 64–83
--- NOTE | 2019-01-04 07:02 | NUR ---
Assumed pt care at 1900. Pt A/OX4,VSS. C/o pain to buttocks/right hip medicated per EMAR with partial relief reported. Wound care done without problems. Colostomy care done,having loose stools. No N/V.Pt has been NPO since midnight. Resting quietly at this time, no distress noted.
--- NOTE | 2019-01-04 11:05 | NUR ---
Received awake on bed. With NS at 125cc/hr, infusing well at R upper arm. On NPO- pt informed and aware. Assisted in ADLs. Pt turned regularly. With wound at L ankle- heel boots on, dressing intact. With Pressure ulcer on R buttocks, dressing in place, pt on low air loss mattress. Scheduled for L BKA today- consent signed, a/w OR schedule. Complained of pain, due PRN pain meds given as prescribed. A+Ox4.
--- NOTE | 2019-01-04 15:27 | NUR ---
PT UNDERWENT A L BKA TODAY. ANTICPATE PT WILL RETURN TO [facility] ONCE MEDICALLY STABLE. CM TO FOLLOW INDICATED WITH DC PLANNING.
--- NOTE | 2019-01-05 02:32 | NUR ---
ASSUMED CARE OF PT @1900. PT A&OX4. PT IS NOW A BKA NANCI. LEFT LEG WAS AMPUTATED ON 01/04/19. V/S STABLE. PT C/O OF 11/17 PAIN IN SACRUM AND LOWER BACK AND WAS MEDICATED ORDERED. PT STATED THAT HER PAIN MEDS HELPS BUT THEY DON'T LAST VERY LONG. HEMOVAC IN PLACE BUT NO DRAINAGE NOTED. DRESSING CHANGED TO THE SACRUM ORDERED. PT ON CONTACT PREC. PT MIDLINE STOPPED DUE TO LEAKING. A 22G ON RIGHT WRIST WAS PLACED. CALL ADLER WITHIN REACH. WILL CONT TO MONITOR
[2019-01-05 06:05] VITALS: BP 117/54
[2019-01-05 07:50] VITALS: BP 101/67
[2019-01-05 13:38] VITALS: BP 107/71
--- NOTE | 2019-01-05 15:28 | NUR ---
PT IS POD#1 L BKA. IT IS ANTICIPATED THAT PT WILL RETURN TO [facility] ONCE CLEARED BY ORTHO. OGDEN IS AWARE [facility] THEIR LIAISON VISTED PT TODAY. CM TO FOLLOW INDICATED WITH DC PLANNING.
[2019-01-05 20:10] VITALS: BP 102/67
--- NOTE | 2019-01-06 04:14 | NUR ---
ASSESSMENT COMPLETED. PT PAIN CONTROLLED WITH ORDERED PAIN MEDS. PT DECLINED WOUND CHANGE TO SACRAL AREA, WOUND DRESSING INTACT. LEFT STUMP DRESSING CLEAN DRY AND INTACT. NO OUTPUT IN THE HEMOVAC, SEROSANGUINEOUS FLUID IN HEMOVAC TUBING. CALL ADLER WITHIN REACH
[2019-01-06 06:15] VITALS: BP 114/80
[2019-01-06 07:17] VITALS: BP 114/75
--- NOTE | 2019-01-06 10:54 | O ---
[facility] [place] [address] [place] [address] OPERATIVE REPORT Name: IMMANUEL ANDERSEN CODY Room #: 451-P ADM IN M.R.#: [id number] Admission: 12/27/18 Attend Phys: Azam Witt MD Discharge: Date of : 81 Report #: [id number] THIS REPORT FOR: //name// CC: Azam Zhang [facility] unknown DATE OF SERVICE: 01/04/2019 PREOPERATIVE DIAGNOSIS: Left ankle osteomyelitis. POSTOPERATIVE DIAGNOSIS: Left ankle osteomyelitis. PROCEDURE: Left ujpza-tqn-igcs amputation. SURGEON: Dr. Efrem Boston. ANESTHESIA: General. ESTIMATED BLOOD LOSS: Minimal. DRAINS: One Hemovac drain was placed. TOURNIQUET TIME: 35 minutes. DESCRIPTION OF PROCEDURE: The patient brought to the operating room where she was placed under general anesthesia. Once under adequate general anesthesia, her left lower extremity was prepped and draped in sterile manner. The extremity was elevated and tourniquet placed to 300 mmHg. A fishmouth type incision about the mid shaft of the tibia was then made. This was dissected sharply down to the tibia as well as the fibula. The peroneal vessels as well as the posterior vessels were then clamped and the remainder of the fishmouth type incision was completed directly down to the bone. An oscillating saw was then used to transect the tibia and beveled it anteriorly and a few centimeters proximal to this, the fibula was then transected completing the amputation. The wound was then irrigated copiously. The vessels were ligated with 0 silk suture. The posterior tibial nerve was transected proximally in the leg and the wound was then irrigated once again copiously. A Hemovac drain was placed, #1 Vicryl was used to repair the periosteum to the deep fascia of the gastrocsoleus complex and the deep fascia of the leg as well. The wound was irrigated once again copiously and closed with 2-0 Vicryl in subcutaneous tissues and jatin for the skin. The wound was dressed with Xeroform, 4 x 4s, and sterile soft compressive dressing was placed. Tourniquet was let down at [address] [address] OPERATIVE REPORT Name: IMMANUEL ANDERSEN CODY Room #: 451-P [facility] IN [facility].#: [id number] Admission: 12/27/18 Attend Phys: Aazm Witt MD Discharge: Date of : 81 Report #: [id number] were no complications from the procedure. The patient tolerated the procedure well and went to the recovery room without incident. <ELECTRONICALLY SIGNED> By: Efrem Boston MD 01/06/19 1054 1257 1099 Efrem Boston MD /nt
--- NOTE | 2019-01-06 11:40 | NUR ---
VASCULAR ACCESS TEAM CONSULTED FOR PIV, MIDLINE DISCUSSED WITH PT, VERBAL CONSENT GIVEN. FELICITAS BASILIC WAS WIDELY PATENT WITH USG, 4FR POWER MIDLINE TRIMMED TO 12CM INSERTED TO 0CM PER HOSPITAL P&P WITH BRISK BR. MIDLINE RELEASED FOR IMMEDIATE USE TO RN PER PROTOCOL
--- NOTE | 2019-01-06 12:56 | NUR ---
Followup: pt with stage IV IT wound, existing right BKA and new left BKA 01/04. Hx paraplegia. Pt has set meals ordered and does not want to vary. Drinking 2 Ensure Enlive daily for additional 700 calories and 40g protein (must be chocolate flavor or pt refuses). Continues on IVF. Wt taken 01/04 171 lb and will be new baseline wt for bilateral BKA. Continue to recommend start MVI, due to nutrient inadequacy without variation. Ensure Enlive providing zinc source. Will change nutrition status to low risk.
--- NOTE | 2019-01-06 13:01 | NUR ---
Please obtain order for a MVI as pt eats the same meals every single day, lacking variation and need for wound healing.
[2019-01-06 16:12] VITALS: BP 95/60
--- NOTE | 2019-01-06 16:59 | NUR ---
Following for d/c planning needs. Pt ready for d/c back to [facility] on Thursday. Stump raw material handler to be delivered today. Will make arrangements for transfer back to facility.
--- NOTE | 2019-01-06 19:06 | PATH ---
[facility] [address] [address] PATHOLOGY RPT PROCEDURE Name: ORLANDO CAT CODY Room #: 451-P ADM IN M.R.#: [id number] Admission: 12/27/18 Date of : 81 Discharge: Report #: [id number] Path Case #: [id number] LCA Accession Number: [id number] . 01 Material submitted: . leg - BELOW LEFT KNEE AMPUTATION. Modifiers: left . 01 Clinical history: . Osteomyelitis of left lower leg . 02 Diagnosis: Extremity, left below knee amputation: - Viable skin and subcutaneous tissue present at margin of excision. - Skin over lateral malleolus with ulceration, necrosis, and non-polarizable foreign material present in subcutaneous tissue. - Bone underlying lateral malleolus with fibrosis of marrow space. - Anterior and posterior tibial vasculature with mild narrowing by non-calcified atherosclerosis. (COREY:sundeep; 01/06/2019) QMS/01/06/2019 . 02 Electronically signed: . Anton Shelley MD, Pathologist NPI- [id number] . 01 Gross description: . The specimen is received fresh in a red biohazard bag, labeled "Orlando Cat, left below knee amputation". Received is a right jdehn-woh-radn amputation measuring 21.7 cm from heel to toe, 16.5 cm from heel to skin margin, 23.2 cm from heel to tibial bone margin, and 24.1 cm from heel to fibular bone margin. The skin and soft tissue margins appear viable. All five toes are present. The nails are light forman and moderately to severely thickened. Overlying the lateral malleolus, there is a pink-red, ulcerated open wound measuring 4.1 x 2.5 cm, which is 8.4 cm from the closest skin margin. The skin surrounding the lesion is brown-black in appearance. The remainder of the epidermal surface is light brown and flaky in appearance. Sectioning through the anterior and posterior tibial vasculatures reveals pinpoint to patent lumens with no gross evidence of calcification. The specimen is submitted representatively as follows: . A1 skin and soft tissue margin A2 patient account representative sections of lesion overlying lateral malleolus A3 patient account representative section of bone underlying lesion on lateral malleolus, following decalcification A4 anterior tibial vasculature A5 posterior tibial vasculature. (CAA; 01/05/2019) [address] [address] PATHOLOGY RPT PROCEDURE Name: ORLANDO CAT CODY Room #: 451-P ADM IN M.R.#: [id number] Admission: 12/27/18 Date of : 81 Discharge: Report #: [id number] Path Case #: [id number] QAC/QAC . 02 Pathologist provided ICD-10: L97.929, I96, I70.202 . 02 CPT . 066064 Specimen Comment: A courtesy copy of this report has been sent to Specimen Comment: [phone], . Specimen Comment: Report sent to / DR SY Performed at: [address] [facility] [address], [place], [place] [id number] MD Alen Erwin MD Phone: [phone] Performed at: [address] [facility] [address] [id number] MD Mackenzie Restrepo MD Phone: [phone]
--- NOTE | 2019-01-06 19:24 | NUR ---
Assumed care of pt at 0700. Pt a&ox4. IVF and antibiotics infusing. Dressing on right buttock and left lower extremity changed. Hemovac drain removed by physician. Stump hansakrinker ordered and placed on patient. Q2h turn. New midline placed by IV team left upper arm. Prn pain meds administered per pt request. Call light within reach.
[2019-01-06 21:43] VITALS: BP 95/57
--- NOTE | 2019-01-07 02:19 | NUR ---
ASSUMED CARE AROUND 1900. AXOX4. L BKA SITE CDI AND STUMP SUPERVISOR SCREEN PRINTING ON. PERSISTENT PAIN. COLOSTOMY SELF CARE RENDERED WITH ASSIST AT BEDSIDE. REFUSES TURNS AND ENOXAPARIN. NO S/S ACUTE DISTRESS NOTED OR REORTED AT THIS TIME. WILL CONT TO MONITOR FOR ANY CHANGES IN CONDITION.
[2019-01-07 05:05] VITALS: BP 102/69
[2019-01-07 08:00] VITALS: BP 112/71
[2019-01-07] MEDS ORDERED: PROTONIX 20 MG20 M1 PO (09:22)
[2019-01-07] MEDS ORDERED: CIPRO500 MG PO (09:22)
--- NOTE | 2019-01-07 12:09 | NUR ---
DISCHARGE ORDERS COMPLETED PER ATTENDING. PATIENT DISCHARGING TO [facility]. CHART COPIED PER OIL DELIVERER. DISCHARGE ORDERS FAXED TO [facility], VERIFIED ORDERS RECEIVED. [facility] SET UP TRANSPORTATION FOR PATIENT BACK TO [facility], 14-1430 HOURS. UNIT NOTIFIED AND CONTACT NUMBER FOR REPORT PROVIDED. YUE SW AWARE.
--- NOTE | 2019-01-07 15:33 | NUR ---
ASSUMED PATIENT CARE AT 0715. PATIENT SLEEPING AT THAT TIME. MAIN COMPLAINT IS BACK AND LEFT LEG PAIN. ALTERNATED MORPHINE AND OXYCONTIN AND HAD GOOD PAIN CONTROL. PATIENT DID OWN OSTOMY CARE WITH STANDBY ASSISTANCE. LEFT STUMP DRESSING INTACT/NO DRAINAGE. TURNED Q2H. SACRAL WOUND LOOKS NICE AND CLEAN/PINK WITH SANGUINOUS DRAINAGE WITH DRESSING CHANGE. CALLED REPORT TO YAZMIN AT [facility] AT 1516. DISCHARGED VIA VAN IN STABLE CONDITION.
== END 2019-01-07 14:30 | DRG 853 ==
LOC: HYPER 07:04 → 4W 11:54
PROVIDERS: Nurse Practitioner; ADMIT Hospitalist
PROC: 05HY33Z Insertion of Infusion Device into Upper Vein, Percutaneous Approach (ICD-10-PCS; principal; 2018-12-27)
PROC: 0QB20ZZ Excision of Right Pelvic Bone, Open Approach (ICD-10-PCS; 2018-12-29)
PROC: 0Y6J0Z1 Detachment at Left Lower Leg, High, Open Approach (ICD-10-PCS; 2019-01-04)
DX: A41.9 Sepsis, unspecified organism (principal); L89.214 Pressure ulcer of right hip, stage 4; L89.524 Pressure ulcer of left ankle, stage 4; E43 Unspecified severe protein-calorie malnutrition; G82.20 Paraplegia, unspecified; M86.162 Other acute osteomyelitis, left tibia and fibula; J45.909 Unspecified asthma, uncomplicated; F32.9 Major depressive disorder, single episode, unspecified; K59.00 Constipation, unspecified; G89.4 Chronic pain syndrome; L97.529 Non-pressure chronic ulcer of other part of left foot with unspecified severity; I73.9 Peripheral vascular disease, unspecified; G83.9 Paralytic syndrome, unspecified; Z16.24 Resistance to multiple antibiotics; N31.9 Neuromuscular dysfunction of bladder, unspecified; Z88.1 Allergy status to other antibiotic agents; Z88.8 Allergy status to other drugs, medicaments and biological substances; Z86.14 Personal history of Methicillin resistant Staphylococcus aureus infection; Z89.511 Acquired absence of right leg below knee; Z93.3 Colostomy status; Z79.891 Long term (current) use of opiate analgesic; Z68.31 Body mass index [BMI] 31.0-31.9, adult; Z87.81 Personal history of (healed) traumatic fracture
CPT/HCPCS: 10047; 27000; 50010; 50101; 50386; 50403; 51412; 51771; 53000; 56524; 56525; 57091; 57119; 57120; 57180; 62110; 62900; 70005

== ENCOUNTER → 2019-01-20 | Outpatient (CLI) | payer OTHER ==
[~2019-01-20] MED LIST changes: +CIPRO500 MG PO; +MINOCIN50 MG PO; +PROTONIX 20 MG20 M1 PO
== END ==
LOC: HYPER 06:42
DX: T87.89 Other complications of amputation stump (principal); L89.524 Pressure ulcer of left ankle, stage 4; L89.214 Pressure ulcer of right hip, stage 4; G82.20 Paraplegia, unspecified; A49.02 Methicillin resistant Staphylococcus aureus infection, unspecified site; A04.72 Enterocolitis due to Clostridium difficile, not specified as recurrent; F17.200 Nicotine dependence, unspecified, uncomplicated; Z93.3 Colostomy status; Y83.5 Amputation of limb(s) as the cause of abnormal reaction of the patient, or of later complication, without mention of misadventure at the time of the procedure

== ENCOUNTER → 2019-02-10 | Outpatient (CLI) | payer OTHER ==
[~2019-02-10] MED LIST changes: +TIGECYCLINE50 MG IVPB
== END ==
LOC: HYPER 07:34
DX: L89.214 Pressure ulcer of right hip, stage 4 (principal); G82.20 Paraplegia, unspecified; L84 Corns and callosities; A04.72 Enterocolitis due to Clostridium difficile, not specified as recurrent; M86.10 Other acute osteomyelitis, unspecified site; M54.9 Dorsalgia, unspecified; G89.29 Other chronic pain; A49.02 Methicillin resistant Staphylococcus aureus infection, unspecified site; F17.200 Nicotine dependence, unspecified, uncomplicated; Z93.3 Colostomy status

== ENCOUNTER → 2019-02-28 | Outpatient (CLI) | payer OTHER | LOC: HYPER 07:52 | DX: L89.214 Pressure ulcer of right hip, stage 4 (principal); L89.222 Pressure ulcer of left hip, stage 2; S88.012D Complete traumatic amputation at knee level, left lower leg, subsequent encounter; A49.02 Methicillin resistant Staphylococcus aureus infection, unspecified site; L84 Corns and callosities; A04.72 Enterocolitis due to Clostridium difficile, not specified as recurrent; G89.29 Other chronic pain; G82.20 Paraplegia, unspecified; M54.9 Dorsalgia, unspecified; M86.10 Other acute osteomyelitis, unspecified site; F17.200 Nicotine dependence, unspecified, uncomplicated; Z93.3 Colostomy status; X58.XXXD Exposure to other specified factors, subsequent encounter ==

== ENCOUNTER 2019-03-05 14:52 | Inpatient (IN) | payer OTHER ==
[~2019-03-05] VITALS: Ht 157.5 cm; Wt 81.1 kg
--- NOTE | ~2019-03-05 | HC ---
[facility] [place] [address] CONSULTATION Name: IMMANUEL ANDERSEN CODY Room #: 217-P ADM IN M.R.#: [id number] Admission: 03/05/19 Attend Phys: Azam Witt MD Discharge: Date of : 83 Report #: [id number] THIS REPORT FOR: //name// CC: Azam Witt Juan M Zhang [facility] unknown DATE OF SERVICE: 03/06/2019 ATTENDING PHYSICIAN: Azam Witt MD REASON FOR CONSULTATION: Fever. HISTORY OF PRESENT ILLNESS: A 33-year-old -[place] woman admitted through the Emergency Room with fever and possible cellulitis, right lower extremity secondary to right ischial decubitus. PAST MEDICAL HISTORY: Lumbar fracture with chronic paraplegia for a number of years. Status post bilateral BKA. 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 Chronic pain syndrome. Status post suprapubic cystostomy. Status post diverting colostomy. DRUG ALLERGIES: TRAMADOL, VANCOMYCIN. MEDICATIONS: The patient is currently on treatment with meropenem 1 gram IV every 8 hours, Zyvox 600 mg IV every 12 hours, acetaminophen p.r.n., p.r.n. morphine sulfate, oxycodone, ondansetron, normal saline at 1000 mL an hour. SOCIAL HISTORY: See H and P, old records. REVIEW OF SYSTEMS: See H and P, old records. PHYSICAL EXAMINATION: GENERAL: Chronically ill-appearing woman. VITAL SIGNS: Temperature maximum 104, pulse 137 to 141 down to 94 today pulse, respirations 20-18 per minute, BP on admission 109/67, now 81/55. Weight 158 pounds. HEENMT: Within range. NECK: Supple. BREASTS: Deferred. LUNGS: Clear. HEART: S1, S2. No gallop or murmur. ABDOMEN: With multiple surgical scars, diverting colostomy with her stools. Suprapubic cystostomy. BACK: Reveals stage 4 right ischial decubitus with VAC in place. Decubitus rather clean. [facility] [address] [place] [address] CONSULTATION Name: IMMANUEL ANDERSEN [facility] Room #: 217-P [facility] IN M.R.#: [id number] Admission: 03/05/19 Attend Phys: Azam Witt MD Discharge: Date of : 83 Report #: [id number] EXTREMITIES: There is increased temperature that appears to have improved on the right lower extremity as compared to the left compatible with possible cellulitis. The patient is status post bilateral avayx-gvtt-qqjryrlyooa. LABORATORY DATA: Sodium 139, potassium 2.9, BUN 6, creatinine 0.4, glucose 112. Magnesium 1.4. WBC 11,800, hemoglobin 9.6 g/dL, platelets 576,000. White blood cell count differential revealed 84% segmented neutrophils on admission. The test is negative. Urinalysis revealed 2+ blood and 4+ urobilinogen, positive leukocyte esterase, microscopic hematuria and pyuria as well as bacteriuria. RADIOLOGY EVALUATION: None available. ASSESSMENT: 1. Febrile illness, question etiology, possible cellulitis, right lower extremity versus urinary tract infection. 2. Paraplegia. 3. Stage IV right ischial decubitus. 4. Remote history of bilateral BKA. SUGGESTIONS: Recommend ESR, CRP. Abdominal ultrasound with particular attention to liver. Continue meropenem and Zyvox. Streamline antibiotics once culture results available. Dr. Witt, thank you for requesting my suggestions. By: [id number] Steven Van MD /nt
[~2019-03-05 14:52] MED LIST changes: -TIGECYCLINE50 MG IVPB
[2019-03-05 14:53] VITALS: BP 109/67
[2019-03-05 15:16] LABS: BASOPHILS 0.4 % (0.0-2.0); EOSINOPHILS 0.1 % (0.0-3.0); HEMATOCRIT 31.3 % (37.0-47.0); HEMOGLOBIN 9.6 gm/dL (12.0-15.0); LYMPHOCYTES 11.9 % (24.0-44.0); MCH 23.2 pg (26.0-34.0); MCHC 30.6 g/dL (28.0-37.0); MCV 76.1 fL (80.0-100.0); MONOCYTES 2.8 % (1.0-8.0); PLATELET COUNT 576 thou/uL (150-400); POLYS 84.8 % (36.0-66.0); RBC 4.12 mil/uL (4.20-5.00); RDW 18.2 % (10.5-14.5); WBC 11.8 thou/uL (4.0-11.0)
[2019-03-05 15:27] LABS: CALCIUM 8.2 mg/dL (8.5-10.1); CREATININE 0.7 mg/dL (0.6-1.0); POTASSIUM 3.8 mmol/L (3.5-5.1)
[2019-03-05 15:55] LABS: ANISOCYTOSIS 2+; PLATELET ESTIMATE NORMAL
[2019-03-05 15:55] LABS: URINE BILIRUBIN NEGATIVE (Negative); URINE BLOOD 2+ (Negative); URINE CLARITY CLOUDY; URINE COLOR YELLOW; URINE GLUCOSE-RANDOM* NEGATIVE (Negative); URINE KETONES NEGATIVE (Negative); URINE NITRITE-REFLEX NEGATIVE (Negative); URINE PROTEIN (DIPSTICK) NEGATIVE (Negative)
[2019-03-05 15:57] LABS: MICROCYTES 1+
[2019-03-05 15:59] LABS: URINE LEUKOCYTES-REFLEX 3+ (Negative)
[2019-03-05 16:13] LABS: SQUAMOUS 0-3 Few /LPF (0-3)
[2019-03-05 16:14] LABS: BACTERIA-REFLEX >30 Many /HPF (None Seen); CASTS None Seen /LPF (None Seen); CRYSTALS None Seen /LPF (None Seen); URINE RBC 3-10 Few /HPF (0-2)
[2019-03-05 18:26] VITALS: BP 97/61
[2019-03-05 19:30] VITALS: BP 97/61
[2019-03-05 20:10] VITALS: BP 99/53
[2019-03-06 00:25] VITALS: BP 93/57
[2019-03-06 04:45] VITALS: BP 81/55
[2019-03-06 05:15] LABS: HEMATOCRIT 31.4 % (37.0-47.0); HEMOGLOBIN 9.4 gm/dL (12.0-15.0); MCH 23.2 pg (26.0-34.0); MCHC 29.9 g/dL (28.0-37.0); MCV 77.7 fL (80.0-100.0); RBC 4.04 mil/uL (4.20-5.00); RDW 18.4 % (10.5-14.5); WBC 10.9 thou/uL (4.0-11.0)
[2019-03-06 05:30] LABS: CALCIUM 7.4 mg/dL (8.5-10.1); CREATININE 0.4 mg/dL (0.6-1.0)
[2019-03-06 05:32] LABS: POTASSIUM 2.9 mmol/L (3.5-5.1)
--- NOTE | 2019-03-06 05:48 | NUR ---
PT ADMITTED AROUND 1944. PT WAS TACHYCARDIA, FEVER, AND IN PAIN. CONTACTED PATHOLOGY LABORATORY DIRECTOR PHYSICIAN AND GOT ORDERS FOR TYLENOL AND TO CONTINUE FLUIDS TO HELP WITH HR. PT PAIN WAS MILDLY CONTROLLED DURING NIGHT. AT END OF SHIFT PT BP DROPPED AND POTASSIUM WAS CRITICAL. CALLED PHYSICIAN AND GOT ORDERS FOR REPLACEMENT. WILL CONTINUE TO MONITOR PT.
[2019-03-06 07:40] VITALS: BP 86/57
[2019-03-06 11:30] VITALS: BP 85/57
[2019-03-06 16:14] LABS: % SATURATION 6 % (20-39); IRON 9 ug/dL (50-170); TIBC 141 ug/dL (250-450)
[2019-03-06 16:16] VITALS: BP 104/67
[2019-03-06 16:43] LABS: FOLIC ACID 7.1 ng/mL (8.6-58.9)
--- NOTE | 2019-03-06 17:16 | NUR ---
PT CARE ASSUMED APPROX 0700. ASSESSMENTS CHARTED. PT DENIES SOA. REPORTS CONSTANT PAIN TO LOWER BACK. PT OFTEN REQUESTING MORPHINE. MORPHINE IS ORDERED TO BE GIVEN AFTER PO PAIN MEDS. PT UPSET BUT AGREEABLE. PT REPORTS THAT IT'S NOT NECESSARY TO CALL DR REGARDING CHANGING PAIN MEDS. PT ASLEEP MOST OF DAY IN BETWEEN CARES AND MED PASSES. WOUND CARE COMPLETED PER ORDER. MRI TOMORROW. PT TOLERATING IV ABT. IVF REMAIN TO POC. SPC AND COLOSTOMY C/D/I. TURNING PT Q2HRS AND PRN. ELECTROLYTES REPLACED PER ORDERS THIS SHIFT. WILL RECHECK TIMELY. PT FEBRILE THIS EVENING, VS OTHERWISE STABLE. PT DENIES QUESTIONS OR CONCERNS REGARDING POC. WOUND CULTURE COLLECTED ORDERED. NO DISTRESS NOTED.
--- NOTE | 2019-03-06 18:41 | NUR ---
TYLENOL DID NOT RESOLVE FEVER. HR IS NOW ELEVATED. DR HART WAS PAGED AND GAVE ORDERS. PT REFUSING IBUPROFEN. NEW PAGE OUT TO DR HART.
[2019-03-06 20:15] VITALS: BP 111/68
[2019-03-07 00:22] VITALS: BP 103/59
[2019-03-07 04:45] VITALS: BP 131/69
--- NOTE | 2019-03-07 05:21 | NUR ---
ASSUMED PT CARE AROUND 1900. A&OX4. C/O CHRONIC BACK AND LE PAIN. PAIN MEDICATIONS GIVEN INDICATED. FEVER IS NOW RESOLVED. PT WAS GIVEN SLEEPING MEDICATION AT BEDTIME. PT STATED SHE SLEPT WELL DURING THE NIGHT. RESP EVEN AND UNLABORED. PT IS ABLE TO HELP REPOSITION HERSELF IN THE BED. PT WAS ENCOURAGED TO ALLOW FREQUENT REPOSITIONING TO PREVENT FURTHER SKIN BREAKDOWN. VSS. FALL PRECAUTIONS IN PLACE. PROGRESSING SLOWLY TOWARD POC GOALS.
[2019-03-07 08:43] VITALS: BP 95/64
[2019-03-07 12:00] VITALS: BP 91/60
[2019-03-07 16:00] VITALS: BP 97/64
--- NOTE | 2019-03-07 16:47 | NUR ---
FAXED CLINICAL UPDATE TO [facility] OF RECEIVED CONFIRMATON AND LEFT MSG WITH YASH IN ADM.
--- NOTE | 2019-03-07 18:12 | NUR ---
ASSUMED CARE AT 0700, SHIFT ASSESSMENT DONE, MEDS GIVEN, VSS. REPOPRTED PAIN, PRN PAIN MEDS GIVEN. WENT FOR A MRI THIS AFTERNOON. AFEBRILE, WOUND DRESSING DONE, Q2 TURNS PER PATIENT. WILL CONTINUE TO ASSESS AND ASSIST WITH ADLs NEEDED.
[2019-03-07 20:58] VITALS: BP 100/64
[2019-03-08 04:48] LABS: HEMATOCRIT 26.9 % (37.0-47.0); HEMOGLOBIN 8.3 gm/dL (12.0-15.0); MCH 23.9 pg (26.0-34.0); MCHC 30.9 g/dL (28.0-37.0); MCV 77.2 fL (80.0-100.0); RBC 3.48 mil/uL (4.20-5.00); RDW 18.5 % (10.5-14.5)
[2019-03-08 04:59] LABS: CALCIUM 7.8 mg/dL (8.5-10.1); CREATININE 0.5 mg/dL (0.6-1.0); POTASSIUM 3.8 mmol/L (3.5-5.1)
[2019-03-08 05:46] VITALS: BP 104/58
--- NOTE | 2019-03-08 06:00 | NUR ---
PT A&O X4 ABLE TO MAKE BASIC NEEDS KNOWN. OCC C/O R ISCHIAL DECUBITUS PAIN CONTROLLED VIA PRN PAIN MEDS. DRESSING CHANGE THIS SHIFT PER ORDERS. PT HAS A COLOSTOYMY BAG ALSO SP CATHETER. PT ON CONTACT ISOLATION FOR MRSA. NANCI BKA. R HIP CELLULITIS. PT IS PARAPLEGIC.
[2019-03-08 08:00] VITALS: BP 107/66
--- NOTE | 2019-03-08 10:49 | NUR ---
met with patient who is A/Ox4 admits with sepsis secondary to wounds. She is ltc at [facility]. She has hx of LTAC stay at [facility] in past. patient has BKA and paraplegic. Plan return to [place] once stable.
--- NOTE | 2019-03-08 11:19 | NUR ---
ASSUMED CARE AT 0700, SHIFT ASSESSMENT DONE, MEDS GIVEN, REPORTED PAIN, PRN PAIN MEDS GIVEN. VSS. WOUND CARE TO BE DONE PER ORDER. RECEIVING FLUIDS AND IV ANTIBIOTCS. WILL CONTINUE TO ASSESS AND ASSIST WITH ADLs NEEDED.
--- NOTE | 2019-03-08 11:38 | NUR ---
OSTOMY CARE; pouch intact, pt states has been x several days, requested assist to change, did not bring supplies to hosp, changed using 2 piece system melquiades cut to fit. stoma pink viable slightly budded, liq brown stool noted, peristomal skin intact. adapt ring applied under wafer, supplies placed at bs, will cont to follow prn
--- NOTE | 2019-03-08 19:40 | NUR ---
YARY HELD PER VERBAL ORDER FROM DR GARCIA
[2019-03-08 19:43] VITALS: BP 97/59
[2019-03-08 23:18] VITALS: BP 105/70
[2019-03-09 04:27] VITALS: BP 95/61
--- NOTE | 2019-03-09 05:11 | NUR ---
ASSUMED PT CARE AT 1900. VSS. PT A&0X4. ASSESMENTS AND MEDS GIVEN ARE DOCUMENTED. PT HAS BEEN AFEBRILE ALL NIGHT, SR ON THE MONITOR COMPLAINED OF PAIN, MANAGED WITH RX MEDS ON JUL, DRESSING CHANGE DONE THIS AM. PT IS GOOD WITH VOICING WHEN SHE NEEDS TO BE REPOSITIONED. PT IS STABLE, SHE WAS ABLE TO GET SOME SLEEP TONIGHT. WILL CONTINUE TO [facility].
[2019-03-09 08:03] VITALS: BP 101/67
--- NOTE | 2019-03-09 18:00 | NUR ---
Dr Townsend by today and talked with patient about surgical options. Pt has asked for pain medicaition consistently througout the day with partial pain relief obtained
[2019-03-09 19:40] VITALS: BP 107/61
[2019-03-10 05:11] VITALS: BP 102/69
[2019-03-10 05:23] LABS: HEMATOCRIT 26.4 % (37.0-47.0); MCH 23.3 pg (26.0-34.0); MCHC 30.3 g/dL (28.0-37.0); RBC 3.42 mil/uL (4.20-5.00); RDW 18.3 % (10.5-14.5); WBC 5.5 thou/uL (4.0-11.0)
[2019-03-10 05:50] LABS: CALCIUM 7.9 mg/dL (8.5-10.1); CREATININE 0.5 mg/dL (0.6-1.0); POTASSIUM 3.9 mmol/L (3.5-5.1)
--- NOTE | 2019-03-10 07:23 | NUR ---
ASUMED OT CARE AT 1900. VSS. PT A&0X4. PT IS STABLE. COMPLAINED OF PAIN OFTEN, MEDS GIVEN PER MAR, DRESSING CHANGES DONE, GOOD URINE OUTPUT, NO SIGNIFICANT CHANGES OVERNIGHT. PT IS CONFUED ABOUT POC, WILL CONTINUE TO MONITOR
[2019-03-10 08:32] VITALS: BP 111/76
[2019-03-10 17:42] VITALS: BP 125/61
--- NOTE | 2019-03-10 19:46 | NUR ---
PATIENT CARE ASSUMED, ASSESSMENT CHARTED, VSS, ALERT AND ORIENTED X 4, PAIN MEDS GIVEN FOR LOWER EXTREMITY PAIN, NO NEEDS VOICED
[2019-03-10 20:01] VITALS: BP 98/54
[2019-03-11 04:00] VITALS: BP 103/62
--- NOTE | 2019-03-11 05:38 | NUR ---
ASSUMED PT CARE AT 1900. PT A/OX4, VITAL SIGNS STABLE, ASSESSMENT CHARTED. PAIN ADEQAUTELY MANAGED WITH PAIN MEDICATION. DRESSING CHANGE ON WOUNDS COMPLETED. PERICARE, COLOSTOMY CARE COMPLETED BY PT WITH ASSISTANCE. PT RESTED WELL THROUGH THE NIGHT. NO COMPLAINTS OF SOB, AFEBRILE. PROGRESSING TOWARD PLAN OF CARE. WILL CONTINUE TO MONITOR.
[2019-03-11 12:00] VITALS: BP 126/89
--- NOTE | 2019-03-11 12:03 | HC ---
[facility] [place] [address] CONSULTATION Name: IMMANUEL ANDERSEN CODY Room #: 208-P ADM IN M.R.#: [id number] Admission: 03/05/19 Attend Phys: Azam Witt MD Discharge: Date of : 83 Report #: [id number] THIS REPORT FOR: //name// CC: Azam MELTON unknown HISTORY OF PRESENT ILLNESS: This 33-year-old female with multiple severe general medical problems and severe peripheral vascular disease, has a previous bilateral [id number] amputations. She has been bedridden for some time and has a chronic decubitus ulcer involving the sacrum and posterior aspect of the right hip. She was readmitted for management of sepsis. I was asked to see her with regard to her decubitus ulcer and apparent osteomyelitis involvement of the pelvis. She is alert and does not seem septic at the time of my evaluation, she seems to understand the situation, but did have family member on the phone to help in our discussion. She notes she has only moderate discomfort with regard to the right hip and pelvis. On physical exam, she has very limited functional mobility. The sacrum and posterior right hip reveal a very large chronic decubitus ulcer. The sidewalls are beefy red with good vascular supply. There is some limited serous drainage on the dressing. The ulcer is probably about 12-15 cm in diameter. It extends down to bone at the posterior aspect of the acetabulum and ischium region. MRI study of the pelvis confirms some bony erosions and edema about the posterior acetabulum extending into the ischium and down to the ischial tuberosity. There is no obvious fluid accumulation. There is no obvious abscess. The hip itself reveals satisfactory position of the femoral head with moderate degenerative change. I have had a lengthy discussion with the patient and also discussed these issues with Dr. Zhang from Infectious Disease and Dr. Chandler from chronic wound care. I feel a surgical debridement of the bony involvement in the pelvis may well be martinez but this would be quite extensive and may end up with essentially a right hemipelvectomy. I think this massive undertaking in such a frail patient is probably best considered at a tertiary care setting and therefore, I would suggest consultation, possibly with the physicians at [facility]. If here the decision is for much more limited and simple exploration at the base of the decubitus ulcer with simple curettage and opening the area to make sure there is no enclosed abscess, then that could be accomplished here at this facility, but in the long run, I think much more extensive debridement and a flap closure may be the best option. I think Dr. Zhang and Dr. Chandler both agree that this would be best managed in a tertiary care setting. I will be [address] [address] CONSULTATION Name: ANDERSEN,IMMANUEL CODY Room #: 208-P ADM IN M.R.#: [id number] Admission: 03/05/19 Attend Phys: Azam Witt MD Discharge: Date of : 83 Report #: [id number] available for further discussion, but at this point would not anticipate engaging in any surgical management for this patient. <ELECTRONICALLY SIGNED> By: Carlos Townsend MD 03/11/19 1203 [id number] Carlos Townsend MD /nt
--- NOTE | 2019-03-11 12:19 | NUR ---
OSTOMY CARE pouch intact, pt states she will change pouch tomorrow. supplies placed at bs, will cont to follow prn
[2019-03-11 16:00] VITALS: BP 109/69
--- NOTE | 2019-03-11 16:23 | NUR ---
[facility] transfer request initiated per the hospitalist regarding the pt's complex surgical needs. ROBERTO transfer team provided Dr. Tamez (ortho) number for peer to peer discussion. Face sheet and clinical referral sent along with radiology uplifting her record to the cloud. transfer nurse Иван called back advising that they will need us to reinitiate the request and fax updated clinical on Thursday as they will not be able to discuss with the other specialists til then. They have declined acute transfer at this time. CM to call them again Thursday am and send updates. The hospitalist will need to talk with as well.
--- NOTE | 2019-03-11 19:20 | NUR ---
ASSUMED CARE OF PT AT SHIFT CHANGE. ASSESSMENT CHARTED. MEDS GIVEN PER JUL. C/O PAIN TREATED WITH IV AND PO MEDS ON TIME. PT ON . PT EATS ALL OF HER MEALS BUT DOES NOT DRINK THE SUPPLEMENTS. PLAN TO TALK TO [facility] ON THURSDAY FOR TRANSFER. WILL CONTINUE TO MONITOR AND FOLLOW POC.
[2019-03-11 21:00] VITALS: BP 122/71
[2019-03-12 03:17] LABS: HEMATOCRIT 26.4 % (37.0-47.0); MCH 23.3 pg (26.0-34.0); MCHC 30.3 g/dL (28.0-37.0); RBC 3.42 mil/uL (4.20-5.00); RDW 18.6 % (10.5-14.5); WBC 5.2 thou/uL (4.0-11.0)
[2019-03-12 03:29] LABS: CREATININE 0.3 mg/dL (0.6-1.0); POTASSIUM 3.9 mmol/L (3.5-5.1)
[2019-03-12 05:00] VITALS: BP 110/64
[2019-03-12 07:41] VITALS: BP 106/60
--- NOTE | 2019-03-12 14:26 | HC ---
[facility] [place] [address] CONSULTATION Name: IMMANUEL ANDERSEN CODY Room #: 208-P ADM IN M.R.#: [id number] Admission: 03/05/19 Attend Phys: Azam Witt MD Discharge: Date of : 83 Report #: [id number] THIS REPORT FOR: //name// CC: Azam MELTON unknown DATE OF SERVICE: 03/06/2019 WOUND CARE CONSULTATION NOTE LOCATION: [facility]. 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 HISTORY OF PRESENT ILLNESS: The patient is a 33-year-old patient, very well known to the Wound Care Service for treatment on multiple occasions at [facility] in [facility]. The patient has bilateral above-knee amputation. 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 At a long-term care facility, wound VAC had been on. The patient developed fever, chills, signs of sepsis and malaise for 4 days, sweating, increased pain in the wound. Wound VAC was on, has now been removed. Transferred to [facility] where she is now getting antibiotic therapy. Admission white blood count 11.8. The patient is currently receiving intravenous meropenem and linezolid. The patient has had this right ischial stage 4 pressure ulcer for a long time and has a history of osteomyelitis. She is also being evaluated for possible urinary tract infection and MRSA. Blood cultures have been no growth so far. Wound Care is consulted due to her right ischial stage 4 pressure wound and to evaluate the right ischial stage 4 pressure wound and possible source of her sepsis. She was noted to have redness and cellulitis of the right leg from the hip to the above-knee amputation site. PAST MEDICAL HISTORY: Paraplegia, history of urinary catheter and suprapubic tube infections, history of osteomyelitis, history of colostomy for fecal diversion, neurogenic bladder, history of right leg amputation, history of hypoalbuminemia. ALLERGIES: TRAMADOL AND VANCOMYCIN. MEDICATIONS: Included Motrin, Lexapro, Desyrel, calcium carbonate, cyanocobalamin, lactobacillus, oxycodone, Flexeril, Neurontin, MiraLax, and Eliquis. PAST SURGICAL HISTORY: Includes right below knee amputation, diverting colostomy, suprapubic catheter for neurogenic bladder, possibly previous ischial [address] [address] CONSULTATION Name: IMMANUEL ANDERSEN Room #: 208-P [facility]#: [id number] Admission: 03/05/19 Attend Phys: Azam Witt MD Discharge: Date of : 83 Report #: [id number] wound debridements. REVIEW OF SYSTEMS: The patient had fever and chills. PHYSICAL EXAMINATION: GENERAL: Shows well-appearing young -[place]ir[place] woman who is alert, pleasant, and conversant. HEENT: Mucous membranes are moist. NECK: Supple. LUNGS: Respirations unlabored. ABDOMEN: Soft, mildly obese with a diverting colostomy. EXTREMITIES: Show right leg amputation. A large right ischial stage 4 pressure ulcer is present, measuring approximately 8 cm x 7 cm x 1.5 cm deep. This is lined with healthy pink granulation tissue. There is no purulence, no obvious exposed bone. The wound itself does not appear infected. Redness of the skin extends from the ischial wound to down the leg. IMPRESSION: 1. Paraplegia. 2. Diverting colostomy. 3. Neurogenic bladder with suprapubic tube. 4. History of urinary tract infections. 5. Right ischial stage 4 pressure ulcer. 6. 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 PLAN: We will order MRI of right hip and pelvis. Continue IV antibiotics. Wound Care team will pack her wound with quarter strength Dakin's pack twice daily. Assess for wound VAC placement once issue of infection has been resolved. Rule out osteomyelitis or abscess of right pelvis associated with the ischial wound. <ELECTRONICALLY SIGNED> By: Fritz Long MD 03/12/19 1426 [id number] [id number] Fritz Long MD /nt
--- NOTE | 2019-03-12 16:56 | NUR ---
ASSUMED CARE OF PT AT SHIFT CHANGE. ASSESSMENT CHARTED. MEDS GIVEN PER JUL. VSS. A&OX4. IV ABX CONTINUE AND NEW ONE STARTED. C/O PAIN TREATED WITH IV AND PO MEDS. PLAN TO TALK WITH [facility] ON THURSDAY REGARDING TRANSFER. WILL CONTINUE TO MONITOR AND FOLLOW POC.
[2019-03-12 17:07] VITALS: BP 115/60
[2019-03-12 20:05] VITALS: BP 104/72
--- NOTE | 2019-03-13 02:47 | NUR ---
ASSESSMENT: PT REMAIN ALERT AND ORIENT TIMES THREE. FAMILY MEMBERS AT THE BEDSIDE. BROUGHT IN FISH DINNER FOR PT. PT CARES FOR COLOSTOMY BAG WITH LITTLE HELP FOR STAFF. CONTINUOUS ORN PAIN MEDICATIONS. APPEARS TO BE IN A SOMBER MOOD THIS EVENING. DRESSING ON BUTTOCKS CHANGED AND IS INTACT. PLAN TO TRANSFER TO BY THURSDAY. SLOW PROGRESS TOWARDS DC GOALS, WILL CONTINUE TO MONITOR.
[2019-03-13 05:00] VITALS: BP 108/58
[2019-03-13 08:30] VITALS: BP 102/66
[2019-03-13 15:46] VITALS: BP 102/66
--- NOTE | 2019-03-13 18:25 | NUR ---
ASSUMED CARE OF PT AT SHIFT CHANGE. ASSESSEMENT CHARTED. MEDS GIVEN PER MAR. VSS. A&OX4. C/O PAIN TREATED WITH PO AND IV MEDS. WOUND DRESSING CHANGED. PLAN TO DISCUSS TRANSFER TO [facility] TOMORROW. WILL CONTINUE TO MONITOR AND FOLLOW POC.
[2019-03-13 18:27] VITALS: BP 105/70
[2019-03-13 19:40] VITALS: BP 125/82
[2019-03-14 05:41] VITALS: BP 111/75
--- NOTE | 2019-03-14 07:32 | NUR ---
ASSUMED PT CARE AT 1900. VSS. PT A&0X4. PT IS STABLE, PAIN MANAGED PER MEDS IN JUL, DRESSING CHANGES DONE, ABX GIVEN FOR INFECTION CONTROL. PT IS STABLE, TO BE TRANSFERED TO TODAY.
[2019-03-14 08:00] VITALS: BP 106/64
--- NOTE | 2019-03-14 09:00 | NUR ---
PATIEN CARE ASSUMED, VSS, ALERT AND ORIENTED, C/O PAIN LOWR EXTREMITIES AND BACK, NO OTHER NEEDS VOICED, WILL CONTINUE TO FOLLOW
--- NOTE | 2019-03-14 12:46 | NUR ---
Spoke with transfer team. They plan to review information rec. They plan to reach out to hospitalist today Dr gomez if planning accepting to .
--- NOTE | 2019-03-14 13:49 | NUR ---
FAXED CLINICIAL UPDATE TO [facility] RECEIVED CONFIRMAITON. DP TO FOLLOW.
--- NOTE | 2019-03-14 14:09 | NUR ---
spoke with [facility] team who reports sx not urgent at this time. Patient to rec nutritional support and can rec wound care with planned dc and f/u with clinic. Tranfer team reports plan to call phys regarding above. requested [facility] eval to [facility] if candidate for LTAC. Patient within Medicare lifetime reserve days 58 days left.
[2019-03-14 16:00] VITALS: BP 115/78
--- NOTE | 2019-03-14 17:14 | NUR ---
FAXED REFERRAL TO [facility] SPOKE WITH ANTWAN IN ADM SHE RECEIVED REFERRAL AND WILL REVIEW. DP TO FOLLOW.
--- NOTE | 2019-03-14 17:34 | NUR ---
PATIENT CARE ASSUMED, ASSESSMENT CHARTED, VSS, ALERT AND ORIENTED X 4, PAIN MANAGED WITH PAIN MEDICATION, DSG CHANGE COMPLETED, WILL CONTINUE TO MONITOR
[2019-03-14 21:45] VITALS: BP 113/77
[2019-03-15 04:45] VITALS: BP 119/74
--- NOTE | 2019-03-15 05:14 | NUR ---
ASSUMED PT CARE AT 1900 WITH NO SIGN OF DISTRESS NOTED IN PT. PT IS ALERT AND ORIENTED. PT IS LAYING IN BED COMFORTABLY. PT COMPLAINS OF PIN. PAIN MED ADMINISTERED SCHEDULED. ASSESSMENT COMPLETED AND DOCUMENTED, VITAL SIGN STABLE. SCHEDULED MEDS ADMINISTERED TO PT. WOUND DRESSING CHANGE DONE. DENIES ANY FURTHER NEEDS AT THIS TIME.
[2019-03-15 08:00] VITALS: BP 105/83
--- NOTE | 2019-03-15 09:10 | NUR ---
OSTOMY CARE POUCH INTACT, PT STATES SHE WILL CHANGE APPLIANCE HERSELF LATER TODAY, LIQ TO MUSHY BROWN STOOL NOTED, SUPPLIES AT BS, WILL CONT TO FOLLOW PRN
--- NOTE | 2019-03-15 15:01 | NUR ---
PATIENT EVALED BY [facility] SHE HAS BEEN AT LTAC IN PAST AND AGREEABLE TO TRANSFER TO [facility]. [facility] ACCEPTING AND WILL MEET WITH PATIENT IN AM.
[2019-03-15 16:00] VITALS: BP 111/71
--- NOTE | 2019-03-15 16:16 | NUR ---
FAXED CLINICAL UPDATE TO [facility] RECEIVED CONFIRMATION AND SPOKE WITH ANTWAN AND SHE WILL CHECK WITH THE FACILITY AND MAKE SURE THEY HAVE WHAT THEY NEED. DP TO FOLLOW.
--- NOTE | 2019-03-15 19:00 | NUR ---
Pt quiet today with minimal interaction with RN. Pt requested pain meds for back and right hip wound with only partial pain relief obtained. systems project manager working on plans for possible discharge tomorow to [facility]. Message sent to wound care nurse afer possible new wound on sacrum...approximately three inches above rectum. Wound identified during dressing change to right IT wound. Pt has slept intermittently througout the day. Report givne to RN assuming care. Maintained in isolation.
[2019-03-15 20:48] VITALS: BP 115/84
[2019-03-16 04:42] VITALS: BP 114/76
--- NOTE | 2019-03-16 05:10 | NUR ---
ASSUMED PT CARE AT 1900 WITH NO SIGN OF DISTRESS NOTED. PT IS ALERT AND ORIENTED LAYING IN BED. NO FAMILY AT BEDSIDE. ASSESSMENT COMPLETED AND CHARTED. SCHEDULED MEDS ADMINISTERED TO PT. PT REFUSED TO TURN, DENIES ANY FURTHER NEEDS AT THIS TIME.
[2019-03-16 07:56] VITALS: BP 105/69
--- NOTE | 2019-03-16 11:08 | NUR ---
OSTOMY CARE pt agreed to change pouch prior to d'c today, wafer had been x1 week, reminded pt to never leave wafer on >1 week, pt was changing pouch qod, but not attached wafer, cooperative w/ care and verbal understanding, stoma pink viable budded, peristomal skin intact, mushy brown stool noted, supplies at bs, staff training and development manager informed of care
--- NOTE | 2019-03-16 11:12 | NUR ---
OSTOMY CARE; addendum ; melquiades cut to fit 2 piece pouch applied w/ adapt ring under wafer, shown how to apply adapt ring and use instead of paste as ring easier to remove and does not sting. good understanding by pt, supplies at bs
--- NOTE | 2019-03-16 11:14 | NUR ---
WOUND CARE F/U pt being d'c to [facility] today, assisted staff anesthesiologist KIM w/ wound care, wound below IT wound pinkish white, not open, pt states care for this wound was a silicone border drsg, applied today, wound care done per orders w/ 05/14% [facility]. see process interventions for details. photos taken by staff anesthesiologist KIM
[2019-03-16] MEDS ORDERED: TIGECYCLINE50 MG IVPB (11:59)
--- NOTE | 2019-03-16 12:15 | NUR ---
PT DISCHARGING TODAY TO [facility] FAXED DC ORDERS/SUMMARY TO FACILITY RECEIVED CONFIRMATION AND LEFT MSG WITH ERLIN IN ADM AT FACILITY THAT AMBULANCE TRANSPORT ARRANGED FOR 1300 TODAY. UNIT NOTIFIED AND CHART COPY PER US. RN TO CALL REPORT TO [phone].
--- NOTE | 2019-03-16 14:14 | NUR ---
patient to dc to LTAC today. Per Dr Zhang request for f/u apt with Dr Salazar at plastics. Sp with their office and report need to be seen for Stage 4 pressure ulcer ? flap. Office reports that apt to be arranged in burn and wound clinic arranged apt for Mar 31 at 10:[address] wound/burn clinic. Called [facility] intake and updated as patient has dc to LTAC.
--- NOTE | 2019-03-16 14:36 | NUR ---
ASSUMED CARE OF PT AT SHIFT CHANGE. ASSESSMENT CHARTED. MEDS GIVEN PER JUL. VSS. A&OX4. C/O PAIN TREATED WITH PO AND IV MEDS. DC ORDERS COMPLETE. PT GOING TO LTAC SO IV INTACT. NO TELE. TRANSPORT PROVIDED BY AMBULANCE.
== END 2019-03-16 14:33 | DRG 871 ==
LOC: ER 14:52 → EROBS 16:26 → 2N 16:26
PROVIDERS: Emergency Medicine; Hospitalist; Internal Medicine; ADMIT Hospitalist
DX: A41.9 Sepsis, unspecified organism (principal); L89.154 Pressure ulcer of sacral region, stage 4; E43 Unspecified severe protein-calorie malnutrition; G82.20 Paraplegia, unspecified; L03.115 Cellulitis of right lower limb; N39.0 Urinary tract infection, site not specified; M86.68 Other chronic osteomyelitis, other site; J45.909 Unspecified asthma, uncomplicated; F32.9 Major depressive disorder, single episode, unspecified; G89.4 Chronic pain syndrome; F17.210 Nicotine dependence, cigarettes, uncomplicated; N31.9 Neuromuscular dysfunction of bladder, unspecified; I73.9 Peripheral vascular disease, unspecified; E87.6 Hypokalemia; E83.42 Hypomagnesemia; D64.9 Anemia, unspecified; E66.9 Obesity, unspecified; M60.9 Myositis, unspecified; Z88.1 Allergy status to other antibiotic agents; Z88.8 Allergy status to other drugs, medicaments and biological substances; Z79.899 Other long term (current) drug therapy; Z86.14 Personal history of Methicillin resistant Staphylococcus aureus infection; Z89.511 Acquired absence of right leg below knee; Z93.3 Colostomy status; Z89.612 Acquired absence of left leg above knee; Z89.611 Acquired absence of right leg above knee; Z74.01 Bed confinement status; Z98.891 History of uterine scar from previous surgery; Z68.32 Body mass index [BMI] 32.0-32.9, adult
CPT/HCPCS: 10081; 10194

== ENCOUNTER → 2019-05-10 | Outpatient (CLI) | payer OTHER ==
[~2019-05-10] MED LIST changes: +TIGECYCLINE50 MG IVPB
== END ==
LOC: HYPER 09:13
DX: L89.214 Pressure ulcer of right hip, stage 4 (principal); A49.02 Methicillin resistant Staphylococcus aureus infection, unspecified site; A04.72 Enterocolitis due to Clostridium difficile, not specified as recurrent; M86.8X7 Other osteomyelitis, ankle and foot; G82.20 Paraplegia, unspecified; G89.29 Other chronic pain; E43 Unspecified severe protein-calorie malnutrition; F11.20 Opioid dependence, uncomplicated; F17.200 Nicotine dependence, unspecified, uncomplicated; Z93.3 Colostomy status

== ENCOUNTER → 2019-05-26 | Outpatient (CLI) | payer OTHER | LOC: HYPER 13:39 | DX: L89.214 Pressure ulcer of right hip, stage 4 (principal); A04.72 Enterocolitis due to Clostridium difficile, not specified as recurrent; E43 Unspecified severe protein-calorie malnutrition; G82.20 Paraplegia, unspecified; G89.29 Other chronic pain; M86.8X7 Other osteomyelitis, ankle and foot; F17.200 Nicotine dependence, unspecified, uncomplicated; Z93.3 Colostomy status; Z49.02 Encounter for fitting and adjustment of peritoneal dialysis catheter ==

== ENCOUNTER → 2019-06-08 | Outpatient (CLI) | payer OTHER | LOC: HYPER 08:12 | DX: L89.314 Pressure ulcer of right buttock, stage 4 (principal); L89.214 Pressure ulcer of right hip, stage 4; L89.324 Pressure ulcer of left buttock, stage 4; S88.012D Complete traumatic amputation at knee level, left lower leg, subsequent encounter; B95.62 Methicillin resistant Staphylococcus aureus infection as the cause of diseases classified elsewhere; G82.20 Paraplegia, unspecified; A04.72 Enterocolitis due to Clostridium difficile, not specified as recurrent; G89.29 Other chronic pain; M54.9 Dorsalgia, unspecified; M86.172 Other acute osteomyelitis, left ankle and foot; F17.200 Nicotine dependence, unspecified, uncomplicated; Z89.511 Acquired absence of right leg below knee; Z93.3 Colostomy status; V89.2XXD Person injured in unspecified motor-vehicle accident, traffic, subsequent encounter ==

== ENCOUNTER → 2019-07-19 | Outpatient (CLI) | payer OTHER | LOC: HYPER 12:38 | DX: L89.214 Pressure ulcer of right hip, stage 4 (principal); L89.524 Pressure ulcer of left ankle, stage 4; S88.012D Complete traumatic amputation at knee level, left lower leg, subsequent encounter; G82.20 Paraplegia, unspecified; A04.72 Enterocolitis due to Clostridium difficile, not specified as recurrent; B95.62 Methicillin resistant Staphylococcus aureus infection as the cause of diseases classified elsewhere; M86.172 Other acute osteomyelitis, left ankle and foot; F17.200 Nicotine dependence, unspecified, uncomplicated; Z93.3 Colostomy status; X58.XXXD Exposure to other specified factors, subsequent encounter ==

== ENCOUNTER → 2019-08-10 | Outpatient (CLI) | payer OTHER | LOC: HYPER 08:47 | DX: L89.214 Pressure ulcer of right hip, stage 4 (principal); L89.224 Pressure ulcer of left hip, stage 4; L89.00 Pressure ulcer of unspecified elbow; B95.62 Methicillin resistant Staphylococcus aureus infection as the cause of diseases classified elsewhere; S88.012D Complete traumatic amputation at knee level, left lower leg, subsequent encounter; G82.20 Paraplegia, unspecified; A04.72 Enterocolitis due to Clostridium difficile, not specified as recurrent; M86.172 Other acute osteomyelitis, left ankle and foot; F17.200 Nicotine dependence, unspecified, uncomplicated; Z89.512 Acquired absence of left leg below knee; Z93.3 Colostomy status; V89.2XXD Person injured in unspecified motor-vehicle accident, traffic, subsequent encounter ==

== ENCOUNTER → 2019-08-24 | Outpatient (CLI) | payer OTHER | LOC: HYPER 13:25 | DX: L89.214 Pressure ulcer of right hip, stage 4 (principal); L89.224 Pressure ulcer of left hip, stage 4; S88.012D Complete traumatic amputation at knee level, left lower leg, subsequent encounter; A49.02 Methicillin resistant Staphylococcus aureus infection, unspecified site; A04.72 Enterocolitis due to Clostridium difficile, not specified as recurrent; G82.20 Paraplegia, unspecified; E03.9 Hypothyroidism, unspecified; G89.29 Other chronic pain; M54.9 Dorsalgia, unspecified; Z93.3 Colostomy status; Z89.511 Acquired absence of right leg below knee ==

== ENCOUNTER 2019-09-05 17:55 | Inpatient (IN) | payer OTHER ==
[~2019-09-05] VITALS: Ht 162.6 cm; Wt 90.3 kg
[2019-09-05 18:05] VITALS: BP 106/59
[2019-09-05 18:42] LABS: HEMATOCRIT 32.9 % (37.0-47.0); HEMOGLOBIN 10.3 gm/dL (12.0-15.0); MCHC 31.4 g/dL (28.0-37.0); MCV 79.6 fL (80.0-100.0); RBC 4.13 mil/uL (4.20-5.00); RDW 17.5 % (10.5-14.5)
[2019-09-05 18:44] LABS: ANION GAP 8 mmol/L (7-16); BUN 5 mg/dL (7-18); CALCIUM 8.1 mg/dL (8.5-10.1); CHLORIDE 94 mmol/L (98-107); CO2 26 mmol/L (21-32); CREATININE 0.5 mg/dL (0.6-1.0); GLUCOSE 135 mg/dL (74-106); POTASSIUM 3.3 mmol/L (3.5-5.1); SODIUM 128 mmol/L (136-145)
[2019-09-05 18:59] LABS: ALBUMIN 1.7 g/dL (3.4-5.0); SGOT 26 U/L (15-37); SGPT 25 U/L (30-65); TOTAL BILIRUBIN 1.1 mg/dL (<0.1-1.0); TOTAL PROTEIN 8.4 g/dL (6.4-8.2); TROPONIN-I <0.06 ng/mL (<0.06)
[2019-09-05 19:03] LABS: URINE BILIRUBIN NEGATIVE (Negative); URINE BLOOD 1+ (Negative); URINE CLARITY CLEAR; URINE COLOR YELLOW; URINE GLUCOSE-RANDOM* NEGATIVE (Negative); URINE KETONES NEGATIVE (Negative); URINE NITRITE-REFLEX NEGATIVE (Negative); URINE PROTEIN (DIPSTICK) NEGATIVE (Negative); URINE SPECIFIC GRAVITY <= 1.005 (1.005-1.035); URINE UROBILINOGEN 0.2 E.U./dl (0.2-1.0)
[2019-09-05 19:08] LABS: LIPASE 30 U/L (73-393)
[2019-09-05 19:09] LABS: URINE LEUKOCYTES-REFLEX 3+ (Negative)
[2019-09-05 19:11] LABS: BACTERIA-REFLEX None Seen /HPF (None Seen); CASTS None Seen /LPF (None Seen); SQUAMOUS 0-3 Few /LPF (0-3); URINE RBC None Seen /HPF (0-2); URINE WBC-REFLEX 0-5 Rare /HPF (0-5)
[2019-09-05 19:12] LABS: CRYSTALS None Seen /LPF (None Seen)
--- NOTE | 2019-09-05 19:16 | NUR ---
Pt taken to CT
--- NOTE | 2019-09-05 19:33 | NUR ---
Pt back from CT at this time.
[2019-09-05] MEDS ORDERED: CELEXA 20 MG TA20 MG PO (21:08)
[2019-09-05] MEDS ORDERED: GABAPENTIN800 M1 PO (21:08)
[2019-09-05] MEDS ORDERED: FLEXERIL PO (21:09)
[2019-09-05] MEDS ORDERED: CYCLOBENZAPRINE5 MG PO (21:09)
[2019-09-05] MEDS ORDERED: ACIDOPHILUS1 EAC5 PO (21:10)
[2019-09-05] MEDS ORDERED: MELATONIN3 M1 PO (21:10)
[2019-09-05] MEDS ORDERED: MINOCYCLINE HC100 M2 PO (21:11)
[2019-09-05] MEDS ORDERED: TRAZODONE HCL100 MG PO (21:12)
[2019-09-05] MEDS ORDERED: MAGNESIUM400 MG PO (21:14)
[2019-09-05] MEDS ORDERED: MULTIVITAMINS1 EAC7 PO (21:14)
[2019-09-05] MEDS ORDERED: JUVEN PACKET1 EAC1 PO (21:14)
[2019-09-05] MEDS ORDERED: PROSOURCE PLUS30 ML PO (21:15)
[2019-09-05] MEDS ORDERED: AFRIN15 ML NASAL (21:16)
[2019-09-05 22:11] VITALS: BP 96/53
[2019-09-05 22:29] VITALS: BP 98/52
[2019-09-05 23:59] VITALS: BP 90/55
--- NOTE | 2019-09-06 02:03 | NUR ---
PT NEW ADMIT FROM ER, ARRIVED ON UNIT ABOUT 2250. ALERT AND ORIENTED. PT HAS A COLOSTOMY BAG, URINARY CATHETER THAT SHE SAYS SHE TAKES CARE OF IT HERSELF. VITALS ON ARRIVAL, 02 97%, HR 136, BP 90/55, RESPIRATIONS 17. FILLETER NOTIFIED ABOUT PT HR,NO ORDERS RECEIVED. PT BEING TREATED FOR SEPSIS. PT DENIES PALPITATION, CHEST PAIN, NAUSEA OR VOMITING. PT ALSO HAS BILATERAL CHRONIC PRESSURE WOUNDS/ULCERS. PICTURES TAKE. PT IS A DOUBLE BKA, BOTH STAMPS LOOK CLEAR , DRY AND INTACT. NO EDEMA, NO PAIN. DENIES SOB. C/O WOUND PAIN, PRN MEDICATIONS GIVEN ORDERED. PT CURRENTLY RESTING/SLEEPING COMFORTABLY. NO FURTHER CONCERNS. WILL CONTINUE WITH POC.
[2019-09-06 04:43] VITALS: BP 94/55
[2019-09-06 04:55] LABS: HEMATOCRIT 29.9 % (37.0-47.0); HEMOGLOBIN 9.3 gm/dL (12.0-15.0); MCHC 30.9 g/dL (28.0-37.0); MCV 80.8 fL (80.0-100.0); RBC 3.7 mil/uL (4.20-5.00); RDW 17.6 % (10.5-14.5); WBC 6.1 thou/uL (4.0-11.0)
[2019-09-06 05:04] LABS: CALCIUM 6.9 mg/dL (8.5-10.1); CREATININE 0.4 mg/dL (0.6-1.0)
--- NOTE | 2019-09-06 08:18 | EKG ---
[facility] [place] [address] ELECTROCARDIOGRAM REPORT Name: IMMANUEL ANDERSEN Room #: 355-P ADM IN M.R.#: [id number] Admission: 09/05/19 Attend Phys: Oswaldo Weinstein MD Discharge: Date of : 81 Report #: [id number] THIS REPORT FOR: cc: Kee Child James D. DO Lundgren, Craig H. MD [facility] ~ THIS REPORT FOR: //name// [facility] ED Test Date: 2019-09-05 Test Time: 18:32:08 Pat Name: IMMANUEL ANDERSEN Department: Room: [facility] Gender: F Marker Machine: MURIEL : 1985 Requested By: Harleen Sheikh Order Number: [id number] MD: Santiago Bowen Measurements Intervals [place] Rate: 134 P: 81 MI: 134 QRS: 126 QRSD: 83 T: -27 QT: 312 QTc: 466 Interpretive Statements Sinus tachycardia LAE, consider biatrial enlargement Probable RVH w/ secondary repol abnormality Baseline wander in lead(s) III Compared to ECG 11/06/2018 21:19:07 No significant change was found Electronically Signed On 09-06-2019 8:16:23 CDT by Santiago Bowen [email or web address] <ELECTRONICALLY SIGNED> By: Santiago Bowen MD, [facility] 09/06/19 0816 31 31 Santiago Bowen MD, [facility] /EPI
--- NOTE | 2019-09-06 09:57 | NUR ---
RD notification of pt with bilateral chronic pressure ulcers to buttocks. Familiar with pt from prior admits. Admit with acute osteomyelitis. From SNF, and has hx paraplegia, chronic wounds, bilateral BKA. Has regained lost weight from 03/2019 admission and now at usual 178 lb, although obese. NPO for procedure. In past has requested same meals every day and will drink maurizio ensure enlive-will order. R/O COVID 19;will speak with pt after results. On MVI and IVF. Low nutrition risk at this time.
[2019-09-06 10:02] VITALS: BP 105/65
[2019-09-06] MEDS ORDERED: OXYCODONE HCL 55 MG PO (13:39)
--- NOTE | 2019-09-06 14:33 | NUR ---
PT RESIDES AT [facility] FAXED CLINICAL UPDATE SPOKE WITH YASH IN ADM SHE RECEIVED UPDATE AND WILL FOLLOW.
--- NOTE | 2019-09-06 15:51 | NUR ---
ASSESSMENT: CM REVIEWED CHART AND ATTEMPTED TO CONTACT PT VIA PHONE BUT NO ANSWER. PT IS A LTC RESIDENT FROM [facility]. CM REACHED OUT TO PATIENTS FATHER JONATHAN AND GATHERED ADDITIONAL INFORMATION. PT IS A 33 YEAR OLD FEMALE WITH HX OF PARAPLEGIA, BILATERAL BKA, CHRONIC NON HEALING WOUNDS WHO WAS ADMITTED DUE TO FEVER/CHILLS. PT WAS RULED OUT FOR COVID 19 AND CAME BACK NEGATIVE. PT WAS STARTED ON IV ANBX AND IS SCHEDULED TO HAVE AN EXCISIONAL DEBRIDEMENT. PT HAS BEEN TO [facility] IN THE PAST. HEAD OF [employer]ING [employer] FAXED CLINICAL TO [facility] AND PLANS ARE TO RETURN THERE ONCE MEDICALLY STABLE. CM WILL CONTINUE TO FOLLOW TO ASSIST NEEDED.
--- NOTE | 2019-09-06 18:57 | NUR ---
Assumed patient care at 0715. Vital signs have been stable except she has been Tachycardic. Patient has wounds to bilateral buttocks. Wound care orders just posted. Patient transferred to [address] [place] [address] at 1855 from [address] [employer] on "Hold Acknowledge" as it is a new order. Patient refused to allow wounds to be swabbed, refused to allow this nurse to collect stool sample. Dr Zhang notified of this. Dr Zhang also notified that patient is upset because she has been getting Vancomycin, as she states "it causes me to have Hallucinations!" Recieved TO to discontinue Vancomycin per Dr Zhang. Dr Zhang to visit this evening. Dr Lema notified of patient refusing wound care/swabbing of wounds, as well as stool sample. Dr Lema stated "it's ok if you do not get the wound cultures, as she is having debridement surgery on . Patient educated about this, as well as educated that she is negative for COVID-19. Report given to on-coming RN.
[2019-09-06 19:35] VITALS: BP 102/54
[2019-09-07] VITALS (8 sets, daily range): BP systolic 92–109; BP diastolic 55–72
--- NOTE | 2019-09-07 03:22 | NUR ---
ASSUMED PATIENT CARE AT 1845. VITAL SIGNS STABLE WITH PATIENT HAVING NO COMPLAINTS OF NAUSEA. SHE HAS COMPLAINED FREQUENTLY OF PAIN ON BACK AND LEGS FOR WHICH SHE HAS BEEN TREATED APPROPRIATELY. FULLY ORIENTED, PATIENT IS ABLE TO CALL FOR NEEDS. PATIENT HAS REFUSED MANY TURNS FROM NURSING STAFF OVER SHIFT AND HAS REFUSED EDUCATION ON THE IMPORTANCE OF FREQUENT TURNS IN SKIN CARE. WOUNDS TO BE CHANGED EARLY THIS MORNING PER PATIENTS REQUEST IN ORDER FOR HER TO SLEEP. CONTINUE PLAN OF CARE.
[2019-09-07 12:17] LABS: HEMATOCRIT 27.7 % (37.0-47.0); HEMOGLOBIN 8.7 gm/dL (12.0-15.0); MCH 25.4 pg (26.0-34.0); MCHC 31.5 g/dL (28.0-37.0); MCV 80.8 fL (80.0-100.0); RBC 3.42 mil/uL (4.20-5.00); RDW 17.4 % (10.5-14.5); WBC 4.2 thou/uL (4.0-11.0)
[2019-09-07 12:25] LABS: CALCIUM 7.1 mg/dL (8.5-10.1); CREATININE 0.5 mg/dL (0.6-1.0); MAGNESIUM 1.5 mg/dL (1.8-2.4)
[2019-09-07 12:31] LABS: POTASSIUM 2.9 mmol/L (3.5-5.1)
--- NOTE | 2019-09-07 14:11 | NUR ---
Tenative plan sx I/D on . Updated [place] of plan casemgt following for plan return to [facility]. Casemgt following.
--- NOTE | 2019-09-07 18:41 | NUR ---
VAT CONSULTED FOR A PIV FOR ACCESS. THIS PT HAS CHRONIC WOUNDS AND HAD OVER 7 LINES PLACED LAST YEAR. SHE WOULD BENEFIT FROM A PORT PLACEMENT TO DUE MULTIPLE LINES NEEDED WHEN SHE IS ADMITTED. SPOKE TO PT ABOUT IT AND SHE IS THINKING ABOUT IT
--- NOTE | 2019-09-07 18:48 | NUR ---
PT CARE ASSUMED AT SHIFT CHANGE. PT ASSESSMENTS CHARTED. PT MEDICATION CHARTED. PT REQUIRES PAIN MEDICATION REGULARLY. PT RECIEVED A NEW IV IN LT AC; IV THERAPY SUGGESTS A PORT. PT REFUSES A LOT OF CARE; ACCEPTED REPOSITIONING ONLY TWICE.
--- NOTE | 2019-09-07 23:56 | NUR ---
CARE TRANSFERRED TO [facility].
[2019-09-08 05:15] VITALS: BP 92/58
[2019-09-08 05:22] LABS: CALCIUM 7.4 mg/dL (8.5-10.1); CREATININE 0.6 mg/dL (0.6-1.0); MAGNESIUM 1.7 mg/dL (1.8-2.4)
[2019-09-08 05:42] LABS: HEMATOCRIT 30.5 % (37.0-47.0); HEMOGLOBIN 9.5 gm/dL (12.0-15.0); MCHC 31.2 g/dL (28.0-37.0); MCV 80.2 fL (80.0-100.0); RBC 3.8 mil/uL (4.20-5.00); RDW 17.6 % (10.5-14.5); WBC 3.5 thou/uL (4.0-11.0)
[2019-09-08 06:16] LABS: POTASSIUM 3.9 mmol/L (3.5-5.1)
--- NOTE | 2019-09-08 06:37 | NUR ---
ASSUMED PT CARE AROUND 0000. AXOX4. KEPT NPO MN FOR SURGERY IN AM. VSS. PAIN MANAGED PER MD ORDER. NO S/S ACUTE DISTRESS NOTED OR REPORTED AT THIS TIME. WILL CONT TO MONITOR FOR ANY CHANGES IN CONDITION.
[2019-09-08 07:50] VITALS: BP 104/73
[2019-09-08 08:30] VITALS: BP 104/73
--- NOTE | 2019-09-08 11:12 | NUR ---
SPOKE TO CCU RN AND WAS NOT AWARE OF PICC/MIDLINE ORDER. HE DID FOLLOW UP WITH DR. HART AND DR. HART SUGGESTED TO HOLD PICC WHILE PATIENT HAS ADEQUATE PIV ACCESS. PT TO OR TODAY. WILL FOLLOW UP AND PLACE PICC IF NEEDED
--- NOTE | 2019-09-08 16:26 | NUR ---
Pt had I/D today. [facility] updated. They indicate that the pt has skilled medicare days available for theray and wound care upon her return there. Dc timeframe uncertain. Will follow.
[2019-09-08 16:30] VITALS: BP 122/81
[2019-09-08 18:20] VITALS: BP 122/81
--- NOTE | 2019-09-08 18:21 | NUR ---
CONSULTED TO PLACE A PICC FOR A PATIENT HAVING PIV LINES REPLACED Q8 HOURS. ORDER AND CONSNT NOTED. THE PATIENT HAS HAD MULTIPLE LINES IN THE PAST AND HAS SCAR TISSUE MAKING LINE PLACEMENT DIFFICULT. PORT PLACEMENT WAS SUGGESTED BUT NOT DISCUSSED WITH PRIMARY AT THIS TIME. DISCUSSED AGAIN WITH THE PATIENT. IN THE MEANTIME A #4F SINGLE LUMEN POWER PICC WAS PLACED ON THE 2ND ATTEMPT PER POLICY. LINE TRIMMED TO 38CM AND ADVANCED WITHOUT DIFFICULTY. A STAT CHEST XRAY WAS ORDERED FOR CONFIRMATION
--- NOTE | 2019-09-08 19:19 | NUR ---
PT CARE ASSUMED AT SHIFT CHANGE. PT ASSESSMENTS CHARTED. PT MEDICATION CHARTED. PT TO OR AT 1030 FOR A BILAT DEBRIDEMENT OF HER PRESSURE ULCERS; RETURNING AT 1345. PT REFUSES TURNS REGULARLY. CALLS FOR PAIN MEDS REGULARLY. PT HAS A NEW PICC PLACED RT UPPER ARM.
[2019-09-08 20:10] VITALS: BP 96/58
--- NOTE | 2019-09-08 20:32 | NUR ---
1910 ASSUMED CARE OF PT AFTER BEDSIDE REPORT, 2014 BASELINE ASSESSMENT COMPLETED. PICC LINE CHARTING COPIED SECONDARY TO INABILITY TO CLOSE CHARTING, PT RESTING IN BED WITH NO COMPLAINTS AT THIS TIME, PT IS REFUSING POSITION CHANGE AT THIS TIME, AND REFUSING FULL ASSESSMENT OF SACRAL WOUND. WILL CONTINUE TO EDUCATE, AND ENCOURAGE POSITION CHANGE. LOW AIR LOSS MATRESS, FALL PRECAUTIONS IN PLACE. WILL CONTINUE TO MONITOR
[2019-09-09 00:15] VITALS: BP 130/66; BP 98/62
[2019-09-09 04:45] VITALS: BP 92/55
[2019-09-09 05:26] LABS: HEMATOCRIT 26.4 % (37.0-47.0); HEMOGLOBIN 8.4 gm/dL (12.0-15.0); MCH 25.2 pg (26.0-34.0); MCHC 31.6 g/dL (28.0-37.0); MCV 79.7 fL (80.0-100.0); RBC 3.32 mil/uL (4.20-5.00); RDW 17.1 % (10.5-14.5); WBC 5.6 thou/uL (4.0-11.0)
[2019-09-09 05:56] LABS: CALCIUM 7.4 mg/dL (8.5-10.1); CREATININE 0.4 mg/dL (0.6-1.0); MAGNESIUM 1.5 mg/dL (1.8-2.4); POTASSIUM 3.7 mmol/L (3.5-5.1)
[2019-09-09 07:40] VITALS: BP 96/52
[2019-09-09 11:20] VITALS: BP 95/60
--- NOTE | 2019-09-09 15:26 | NUR ---
No weekend dc anticipated. [facility] updated. Case discussed with the pt care team. Possible dc back to the SNF on Thursday. Pt is being seen by therapy and has skilled Medicare days for rehab and wound care at the SNF.
[2019-09-09 16:24] VITALS: BP 88/57
--- NOTE | 2019-09-09 16:24 | NUR ---
ASSUMED CARE PT SHIFT CHANGE. ASSESSMENTS CHARTED. MEDS GIVEN PER JUL. PT ALERT AND ORIENTED. VSS. O2 SATS WNL ON ROOM AIR. C/O PAIN- MANAGED WITH PO AND IV PAIN MEDS. PT REFUSING TURNS, CONTINUING TO ENCOURAGE TURNS AND EDUCATE. WOUND CARE PERFORMED WITH WOUND NURSE AND PHYSICIAN. PT PREFERS TO HANDLE COLOSTOMY INDEPENDENTLY. CATHETER DRAINING ADEQUATELY. PT CURRENTLY RESTING IN BED. CONTINUING TO MONITOR AND FOLLOW POC. WILL PASS ON REPORT TO SAYDA MONTGOMERY.
--- NOTE | 2019-09-09 18:23 | HC ---
[facility] [place] [address] CONSULTATION Name: IMMANUEL ANDERSEN Room #: 213-P ADM IN M.R.#: [id number] Admission: 09/05/19 Attend Phys: Oswaldo Weinstein MD Discharge: Date of : 81 Report #: [id number] THIS REPORT FOR: cc: Kee Child James D. DO Althoff, Jeffrey R. MD ~ CC: Kee Weinstein DATE OF SERVICE: 09/06/2019 CHIEF COMPLAINT: Bilateral ischial and right hip pressure ulceration. HISTORY OF PRESENT ILLNESS: This is a 33-year-old female patient with whom I am familiar from multiple hospitalizations. She has a history of paraplegia and subsequently bilateral BKAs due to nonhealing ulcers on the lower extremities. She resides at [facility] and we have followed her intermittently for quite some time. She originally developed a significant pressure ulcer on the right ischial and greater trochanteric region. She has had multiple debridements and has underlying chronic osteomyelitis of the pelvis and of the right hip. We have in the past performed surgical debridements and treated with intravenous antibiotic therapy and actually have referred her to [facility] for consideration of a Girdlestone procedure and flap closure. The patient; however, has not kept her scheduled appointments and therefore has not been evaluated for such procedures. She unfortunately has a long history of noncompliance with recommended offloading, continues to smoke heavily. She is admitted again with fever and chills and has foul smelling drainage from the pressure ulcerations. 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 diff. MEDICATIONS: Include acetaminophen, Eliquis, cefepime, citalopram, cyclobenzaprine, Neurontin, linezolid, melatonin, morphine, ondansetron, polyethylene glycol, trazodone. ALLERGIES: TRAMADOL and VANCOMYCIN. SOCIAL HISTORY: Positive for smoking daily. No alcohol use. FAMILY HISTORY: Noncontributory. REVIEW OF SYSTEMS: CONSTITUTIONAL: The patient does have fever and chills. Denies recent weight loss. [address] [address] CONSULTATION Name: IMMANUEL ANDERSEN Room #: 213-P [facility] IN [facility].#: [id number] Admission: 09/05/19 Attend Phys: Oswaldo Weinstein MD Discharge: Date of : 81 Report #: [id number] NEUROLOGICAL: The patient has T4 paraplegia. No new changes. ENT: The patient denies earache, nasal drainage, sore throat. CARDIOVASCULAR: The patient denies chest pain, palpitations or diaphoresis. PULMONARY: The patient denies cough or shortness of breath. GASTROINTESTINAL: The patient denies nausea, vomiting, diarrhea or abdominal pain. ORTHOPEDIC: The patient has now bilateral ischial pressure ulcerations, previously healed below-knee amputations. Other systems in a 14-point review of systems are negative. PHYSICAL EXAMINATION: VITAL SIGNS: At this time include temperature 101.0, pulse 131, respiratory rate of 28, blood pressure 104/56. GENERAL: This is a chronically ill-appearing female patient who appears to be in minimal distress. HEENT: Head normocephalic. Nose and throat are clear. NECK: Supple. LUNGS: Clear. ABDOMEN: Soft. Colostomy noted. EXTREMITIES: Pelvic region demonstrates ischial pressure ulcerations bilaterally. Both are deep. Bone is palpable. There is foul smelling drainage from both, certainly far more on the left than on the right. NEUROLOGIC: The patient is paraplegic. She is otherwise alert and oriented. LABORATORY DATA: Include white blood cell count 9000 with a hemoglobin of 10.3. Sodium 140, potassium 3.0, CO2 of 23, BUN 4, creatinine 0.4, glucose 150. Albumin markedly low at 1.7. CLINICAL IMPRESSION: 1. Stage 4 pressure ulcerations, bilateral ischial tuberosities. 2. Pelvic osteomyelitis. 3. Severe protein-calorie malnutrition. 4. T4 paraplegia. RECOMMENDATIONS: At this point in time, we will consult General Surgery for debridement including bony debridement, to resolve that she would need extensive bony debridement and flap closures. This has been previously arranged at [facility]. The patient has not followed up with those arranged appointments. It would seem that she is not motivated to pursue additional higher level of care. She remains quite noncompliant with most recommended preventative strategies for allowing her to heal or preventing further tissue breakdown. She will be treated with intravenous antibiotics here, aggressive surgical debridement. We will discuss her desire or lack thereof for tertiary referral. She will need aggressive nutritional support at this time. [address] [address] CONSULTATION Name: IMMANUEL ANDERSEN Room #: 213-P [facility] IN M.R.#: [id number] Admission: 09/05/19 Attend Phys: Oswaldo Weinstein MD Discharge: Date of : 81 Report #: [id number] I do appreciate being asked to see her in consultation. <ELECTRONICALLY SIGNED> By: Cuba Chandler MD 09/09/19 1823 [id number] [id number] Cuba Chandler MD /nt
[2019-09-09 19:46] VITALS: BP 104/58
[2019-09-10 04:21] VITALS: BP 101/61
[2019-09-10 04:33] LABS: HEMATOCRIT 26.1 % (37.0-47.0); HEMOGLOBIN 8.3 gm/dL (12.0-15.0); MCH 25.2 pg (26.0-34.0); MCHC 31.6 g/dL (28.0-37.0); MCV 79.8 fL (80.0-100.0); RBC 3.27 mil/uL (4.20-5.00); RDW 17.1 % (10.5-14.5); WBC 6.2 thou/uL (4.0-11.0)
[2019-09-10 04:41] LABS: CALCIUM 7.2 mg/dL (8.5-10.1); CREATININE 0.4 mg/dL (0.6-1.0); MAGNESIUM 1.7 mg/dL (1.8-2.4); POTASSIUM 3.6 mmol/L (3.5-5.1)
--- NOTE | 2019-09-10 05:52 | NUR ---
PT AOX4. SOFT PRESSURES BUT STABLE. PT REPORTS CONSTANT PAIN IN HER LOWER BACK AND BUTTOCKS. PAIN MEDS PRN GIVEN. COLOSTOMY, URINARY CATHETER INTACT. PT REFUSES Q2 TURNS."I AM COMFORTABLE LAYING LIKE THIS." OTHER ASSESSMENTS DOCUMENTED. NO FURTHER CONCERNS AT THIS TIME. WILL CONTINUE WITH POC.
[2019-09-10 07:40] VITALS: BP 103/60
--- NOTE | 2019-09-10 15:26 | NUR ---
AAOX4. WITHDRAWN. MEDICATED FOR PAIN ORDERED. SR PER TELE. COMPLETE BED BATH BY OT. ANTIBIOTICS ORDERED. FALL PRECAUTIONS IN PLACE. FREQUENT CHECKS; WILL CONTINUE TO FOLLOW CLOSELY.
[2019-09-10 17:00] VITALS: BP 104/63
[2019-09-10 19:19] VITALS: BP 108/63
--- NOTE | 2019-09-11 03:30 | NUR ---
ASSUMED CARE OF PT AT 1900HRS. PT IS AOX4 AND LETS NEEDS BE KNOWN. FALL PRECAUTION IN PLACE. PT HAD BEEN REFUSING TURNS THIS SHIFT. FELDER IN PLACE AND IS PATENT. PT HAS AN OSTOMY AND IS ABLE TO TAKE CARE OF IT HERSELF. PT REPORTED PAIN OF 8/10 AND WAS MEDICATED AROUND THE CLOCK WITH PRN MEDS. PT WAS ABLE TO GET COMFORTABLE AND SLEEP PART OF THE SHIFT. VSS AND NO S/S OF ACUTE DISTRESS. WILL CONTINUE TO MONITOR.
[2019-09-11 04:43] VITALS: BP 103/66
[2019-09-11 05:36] LABS: HEMATOCRIT 24.8 % (37.0-47.0); HEMOGLOBIN 7.8 gm/dL (12.0-15.0); MCH 25.5 pg (26.0-34.0); MCHC 31.4 g/dL (28.0-37.0); MCV 81.2 fL (80.0-100.0); RBC 3.05 mil/uL (4.20-5.00); RDW 17.3 % (10.5-14.5); WBC 6.7 thou/uL (4.0-11.0)
[2019-09-11 05:50] LABS: CALCIUM 7.2 mg/dL (8.5-10.1); CREATININE 0.4 mg/dL (0.6-1.0); MAGNESIUM 1.7 mg/dL (1.8-2.4); POTASSIUM 3.4 mmol/L (3.5-5.1)
[2019-09-11 08:00] VITALS: BP 113/77
[2019-09-11 16:30] VITALS: BP 105/69
--- NOTE | 2019-09-11 18:30 | NUR ---
PT A&OX4, VSS, PAIN IN BILAT BUTTOCK. PATIENT REFUSED ALL TURNS. PICC R UPPER ARM PATENT WITH FLUIDS RUNNING. PAIN MEDICATION GIVE. PATIENT CHANGED COLOSTOMY. SUPRAPUBIC CATHETER PATENT. WOUND DOCTOR CHANGED DRESSING TODAY. NO SIGNS OF DISTRESS. WILL CONTINUE TO MONITOR.
[2019-09-11 19:10] VITALS: BP 114/69
[2019-09-12 04:18] VITALS: BP 107/73
[2019-09-12 08:00] VITALS: BP 113/76
[2019-09-12 11:41] LABS: CALCIUM 7.6 mg/dL (8.5-10.1); CREATININE 0.4 mg/dL (0.6-1.0); MAGNESIUM 1.5 mg/dL (1.8-2.4); POTASSIUM 3.8 mmol/L (3.5-5.1)
[2019-09-12] MEDS ORDERED: ZOSYN 4/0.5 GM4.5 G2 IVPB (12:15)
--- NOTE | 2019-09-12 13:08 | NUR ---
PT DISCHARGING TODAY BACK TO [facility] FAXED DC ORDERS/SUMMARY TO FACILITY SPOKE WITH YASH IN ADM SHE RECEIVED ORDERS AND ARRANGED TRANSPORT BY [facility] FOR [phone] TODAY. NOTIFIED PT'S FATHER (JONATHAN) OF DC AND TIME OF TRANSPORT. UNIT NOTIFIED AND CHART COPY PER US. RN TO CALL REPORT TO [phone].
[2019-09-12 16:00] VITALS: BP 119/76
[2019-09-12] MEDS ORDERED: ROXICODONE15 M1 PO (16:55)
--- NOTE | 2019-09-12 17:29 | NUR ---
ASSUMMED PT CARE AT APPROXIMATELY 0700. PT A&O X4. ASSESSMENT CHARTED. FALL PRECAUTIONS IN PLACE. PT DENIES HAVING CHEST PAIN. PT DENIES HAVING SOB. PT STATED SHE HAD PAIN IN HER LOWER BACK AND LOWER EXTREMITIES. PT RECIEVED ANALGESICS THROUGHOUT THE SHIFT. PT DENIED WANTING AVAILABLE ANALGESICS PRIOR TO DISCHARGE. PT DISCHARGING TO FACILITY. PT RECIEVED DISCHARGE EDUCATION. PT STATED UNDERSTANDING AND DENIED HAVING FURTHER QUESTIONS. REPORT GIVEN TO GELY AT FACILITY. GELY STATED UNDERSTANDING AND DENIED HAVING FURTHER QUESTIONS. PT LEAVING C PICC LINE IN PLACE DUE TO PT RECIEVING IV ABX AT FACILITY. VITAL SIGNS STABLE. ENCOURAGED PT TO TURN Q2. PT REFUSED THROUGHOUT SHIFT TO TURN. TELE DC. PT COMFORTABLE. PT DENIES HAVING FURTHER CONCERNS. INFORMED OF LOW MG. MG REPLACED.
== END 2019-09-12 18:08 | DRG 853 ==
LOC: ER 17:55 → EROBS 21:08 → 3W 21:08 → 2N 21:08 → 3W 22:59 → 2N 09-06 18:53
PROVIDERS: Internal Medicine; Nurse Practitioner Family; Student in an Organized Health Care Education/Training Program; Surgery; ADMIT Hospitalist
PROC: 0QB20ZZ Excision of Right Pelvic Bone, Open Approach (ICD-10-PCS; principal; 2019-09-08)
PROC: 0QB30ZZ Excision of Left Pelvic Bone, Open Approach (ICD-10-PCS; principal; 2019-09-08)
PROC: 02HV33Z Insertion of Infusion Device into Superior Vena Cava, Percutaneous Approach (ICD-10-PCS; principal; 2019-09-08)
PROC: 0QD Lower Bones, Extraction (ICD-10-PCS; principal; 2019-09-08)
PROC: 0HRJXK3 Replacement of Left Upper Leg Skin with Nonautologous Tissue Substitute, Full Thickness, External Approach (ICD-10-PCS; principal; 2019-09-08)
PROC: 0QD20ZZ Extraction of Right Pelvic Bone, Open Approach (ICD-10-PCS; principal; 2019-09-08)
PROC: 0HRHXK3 Replacement of Right Upper Leg Skin with Nonautologous Tissue Substitute, Full Thickness, External Approach (ICD-10-PCS; principal; 2019-09-08)
PROC: B548ZZA Ultrasonography of Superior Vena Cava, Guidance (ICD-10-PCS; principal; 2019-09-08)
DX: A41.81 Sepsis due to Enterococcus (principal); L89.324 Pressure ulcer of left buttock, stage 4; L89.314 Pressure ulcer of right buttock, stage 4; E43 Unspecified severe protein-calorie malnutrition; N39.0 Urinary tract infection, site not specified; G82.20 Paraplegia, unspecified; M86.18 Other acute osteomyelitis, other site; K59.2 Neurogenic bowel, not elsewhere classified; M86.68 Other chronic osteomyelitis, other site; Z79.01 Long term (current) use of anticoagulants; Z88.1 Allergy status to other antibiotic agents; B96.89 Other specified bacterial agents as the cause of diseases classified elsewhere; E87.6 Hypokalemia; F32.9 Major depressive disorder, single episode, unspecified; J45.909 Unspecified asthma, uncomplicated; K59.09 Other constipation; G89.4 Chronic pain syndrome; F17.210 Nicotine dependence, cigarettes, uncomplicated; B95.2 Enterococcus as the cause of diseases classified elsewhere; E83.42 Hypomagnesemia; M54.9 Dorsalgia, unspecified; Z20.828 Contact with and (suspected) exposure to other viral communicable diseases; D64.9 Anemia, unspecified; N31.9 Neuromuscular dysfunction of bladder, unspecified; Z89.511 Acquired absence of right leg below knee; Z90.49 Acquired absence of other specified parts of digestive tract; Z79.899 Other long term (current) drug therapy; Z89.512 Acquired absence of left leg below knee; Z88.8 Allergy status to other drugs, medicaments and biological substances; Z91.5 Personal history of self-harm
CPT/HCPCS: 10081; 10879; 27000; 50010; 50101; 50386; 50403; 51412; 57119; 57120; 57141; 57192; 62110; 62900; 70005

== ENCOUNTER 2020-01-19 15:05 | Inpatient (IN) | payer OTHER ==
[~2020-01-19] VITALS: Ht 154.9 cm; Wt 76.7 kg
[~2020-01-19 15:05] MED LIST changes: +ACIDOPHILUS1 EAC5 PO; +AFRIN15 ML NASAL; +CELEXA 20 MG TA20 MG PO; +CYCLOBENZAPRINE5 MG PO; +GABAPENTIN800 M1 PO; +MELATONIN3 M1 PO; +MINOCYCLINE HC100 M2 PO; +MULTIVITAMINS1 EAC7 PO; +OXYCODONE HCL 55 MG PO; +PROSOURCE PLUS30 ML PO; +ROXICODONE15 M1 PO; +TRAZODONE HCL100 MG PO; +ZOSYN 4/0.5 GM4.5 G2 IVPB
[2020-01-19 15:06] VITALS: BP 119/73
[2020-01-19 15:40] LABS: URINE BILIRUBIN NEGATIVE (Negative); URINE BLOOD 1+ (Negative); URINE CLARITY SL CLOUDY; URINE COLOR YELLOW; URINE GLUCOSE-RANDOM* 1+ (Negative); URINE KETONES NEGATIVE (Negative); URINE PROTEIN (DIPSTICK) 1+ (Negative); URINE SPECIFIC GRAVITY >= 1.030 (1.005-1.035); URINE UROBILINOGEN 0.2 E.U./dl (0.2-1.0)
[2020-01-19 15:45] LABS: URINE LEUKOCYTES-REFLEX 2+ (Negative); URINE NITRITE-REFLEX POSITIVE (Negative)
[2020-01-19 15:53] LABS: ABSOLUTE NEUTROPHILS 5.3 thou/uL (1.4-8.2); BASOPHILS 1.2 % (0.0-2.0); EOSINOPHILS 1.6 % (0.0-3.0); HEMATOCRIT 37.8 % (37.0-47.0); HEMOGLOBIN 12.2 gm/dL (12.0-15.0); MCH 26.7 pg (26.0-34.0); MCHC 32.4 g/dL (28.0-37.0); MCV 82.4 fL (80.0-100.0); PLATELET COUNT 508 thou/uL (150-400); POLYS 64.2 % (36.0-66.0); RBC 4.59 mil/uL (4.20-5.00); RDW 20.5 % (10.5-14.5); WBC 8.2 thou/uL (4.0-11.0)
[2020-01-19 15:53] LABS: CASTS None Seen /LPF (None Seen); CRYSTALS None Seen /LPF (None Seen); SQUAMOUS 0-3 Few /LPF (0-3); URINE WBC-REFLEX >25 Many /HPF (0-5)
[2020-01-19 15:54] LABS: BACTERIA-REFLEX >30 Many /HPF (None Seen); URINE RBC 0-2 Rare /HPF (0-2); YEAST-REFLEX Present (None Seen)
[2020-01-19 16:02] LABS: CALCIUM 9.3 mg/dL (8.5-10.1); CREATININE 0.5 mg/dL (0.6-1.0); POTASSIUM 3.9 mmol/L (3.5-5.1)
[2020-01-19 16:13] LABS: ANISOCYTOSIS 1+; PLATELET ESTIMATE NORMAL
[2020-01-19 18:09] VITALS: BP 126/88
[2020-01-19 18:21] VITALS: BP 108/80
[2020-01-19 19:38] VITALS: BP 115/80
--- NOTE | 2020-01-19 23:42 | NUR ---
ADMIT FROM ED. PT LIVING IN HOTEL AFTER SHE LEFT [facility]. PT REPORTED NO MEDICATIONS FOR THE LAST 4 DAYS OR USE OF A WOUND VAC. PT STATED TODAY SHE NOTED HER URINE CLOUDY, INCREASE IN BACK PAIN SO SHE WENT TO THE ED. PT STATED WHILE IN THE ED SHE NOTICED HER WOUNDS WERE DRAINING MORE. WOUND PICUTRES TAKEN, 3 LARGE ODOROUS WOUNDS ON GLUTEAL COCCYX AREA. SUPRA PUBIC CATHETER URINE LARS. COLSOTOMY BROWN SOFT STOOL. PT AOX4. PT STATES SHE WISHES TO RETURN TO [facility]. PT DISCUSSED HOW THREE OF HER ROOMATES HAD TESTED POSITIVE FOR COVID. PT CURRENTLY IN ISOLATION R/O COVID. PT IS A PARA, DOUBLE AMPUTEE. BED ALARM ON. PT REPORTED HISTORY OF DEPRESSION WITH OD OF SLEEPING PILLS 5 YEARS AGO. UPON ARRIVAL TO FLOOR PT REQUESTED SNACK AND PROVIDED. PT ASKED FOR PAIN MEDICATION PRIOR TO REPOSITIONING AND PROVIDER CONTACTED REGARDING ORDERS FOR PAIN RELIEF AND ORDERS PLACED PRN. IV ANTIBIOTIC INTACT. [facility] CONTACT BLUNTED AFFECT ENGAGES IN CONVERSATION COMPLIANT AND PLEASANT WITH CARES.
--- NOTE | 2020-01-20 00:12 | NUR ---
PER LAB PT REFUSED COVID SWAB.
[2020-01-20 05:05] VITALS: BP 114/74
--- NOTE | 2020-01-20 06:09 | NUR ---
PT DECLINED NASAL SWABS AT THIS TIME, STATED DAY SHIFT COULD ASK HER AGAIN.
[2020-01-20 07:41] VITALS: BP 100/72
[2020-01-20 12:14] LABS: HEMATOCRIT 33.7 % (37.0-47.0); HEMOGLOBIN 10.6 gm/dL (12.0-15.0); MCH 26.3 pg (26.0-34.0); MCHC 31.4 g/dL (28.0-37.0); MCV 83.9 fL (80.0-100.0); RBC 4.02 mil/uL (4.20-5.00); RDW 19.9 % (10.5-14.5); WBC 5.8 thou/uL (4.0-11.0)
[2020-01-20 12:27] LABS: CALCIUM 8.4 mg/dL (8.5-10.1); CREATININE 0.4 mg/dL (0.6-1.0); POTASSIUM 3.3 mmol/L (3.5-5.1)
--- NOTE | 2020-01-20 14:39 | NUR ---
INITIAL ASSESSMENT: Received consult for placement. BRENDAN reviewed chart and spoke with nursing and attending physician. Pt was admitted from a hotel, where she has been staying since leaving [facility] about 5 days ago. Pt placed in Enhanced Isolation to r/o COVID-19. Test is pending. Pt with hx of bilateral LE amputations. Pt is w/c bound. Pt on IV abx. Wound care consulted. BRENDAN spoke with pt via phone. Introduced role of BRENDAN. Pt is alert/orientated and states she regrets leaving [facility] and would like to return to [facility] or their [place] facility if needed. Pt reports that her friend will be able to bring her personal belongings and w/c to the facility. SW faxed referral to [facility] post-acute liaison. Pt is able to return to [facility] upon discharge. No weekend discharge planned. BRENDAN spoke with pt via phone to provide update. Pt is agreeable with plan. Clinical updates/COVID test results will need to be faxed to [place] [facility] on Thursday for review. BRENDAN is following to assist as needed with discharge planning.
[2020-01-20 16:05] VITALS: BP 121/71
--- NOTE | 2020-01-20 18:07 | NUR ---
RN HAS ASSUMED PT'S CARE AT 0700AM, PT IS A&OX3, PT CAN HELP TO CHANGE HER POSITION, PT HAS STARTED IV ABX, AND WOUND CARE , PT'S PAIN CAN CONTROL BY MEDICATION, PT'S VS ARE STABLE, PT DOES NOT HAVE SOB AND FEVER, PT'S COVID TEST IS NEGATIVE , PT'S ISOLATION IS DISCONTINUING BY DORITA LEWIS
[2020-01-20 19:37] VITALS: BP 105/73
--- NOTE | 2020-01-20 22:21 | NUR ---
CALLED PROVIDER ABOUT PATIENT COMPLAINING ABOUT PAIN THAT IS NOT RELIEVED BY HER CURRENT REGIME. I HAVE GIVEN THE APPROPRAITE MEDICATIONS FOR HER CHRONIC PAIN. SPOKE WITH PROVIDER, NO ADDITIONAL MEDICATION CAN BE ADDED AT THIS TIME.
[2020-01-21 03:53] VITALS: BP 105/71
--- NOTE | 2020-01-21 05:42 | NUR ---
dressing changed this morning and the culture that dr pabon ordered has been collected and sent to the lab.
[2020-01-21 15:24] VITALS: BP 115/68
--- NOTE | 2020-01-21 16:29 | NUR ---
PATIENT WILL BE TRANSFERED TO 4TH FLOOR. SHE IS ALERT ORIENTED X4. WOUND DRESSING COMPLETED TO BUTTOCKS. SHE DID COMPLAIN OF PAIN EARLIER AND PRN PAIN MEDICATION ADMININSTERED. WILL CONT WITH PLAN OF CARE.
[2020-01-21 19:26] VITALS: BP 128/80
--- NOTE | 2020-01-22 04:19 | NUR ---
VSS-AFEBRILE. LUNGS CLEAR-ROOM AIR. C/O GEBERALIZED ALL OVER BODY ACHES AND PAINS, THAT IS NOT RELIEVED WITH PO PAIN MEDICATIONS. CALL PLACED TO KYE EASLEY WHO STATED THAT DR PULIDO WILL ADDRESS PAIN MED REGIMEN IN THE MORNING. COMOSTOMY DRAINING ADEQUATE STOOL. CALLS APPROPRIATELY FOR ANY NEEDED ASSISTANCE.
[2020-01-22 07:04] VITALS: BP 121/72
--- NOTE | 2020-01-22 16:16 | NUR ---
PT A&OX4, VSS, GENERALIZED PAIN. PATIENT SPOKE WITH DOCTOR ABOUT CONCERNS WITH PAIN MANAGEMENT AND HER FELDER. PATIENT CHANGED OSTOMY HERSELF. NO SIGNS OF DISTRESS. WILL CONTINUE TO MONITOR.
[2020-01-22 16:23] VITALS: BP 118/62
[2020-01-22 19:55] VITALS: BP 95/60
--- NOTE | 2020-01-23 03:12 | NUR ---
PT IS A&OX4. IV IS IN HER RIGHT AC. PT IS A PARA PALEGIC PT HAS A LLQ OSTOMY THAT SHE MANAGES ON HER OWN. PT ALSO HAS SUPERPUBIC CATHETER. PT COMPLAINS OF BACK PAIN AT AN 8. PT'S DRESSING IS C/D/I. FALL BUNDLE IN PLACE WITH CALL LIGHT IN REACH. PT MAKES NEEDS KNOWN. PT IS ASLEEP IN HER ROOM. WILL CONTINUE TO MONITOR.
--- NOTE | 2020-01-23 07:25 | NUR ---
I AGREE WITH ALL CHARTING BY Marlene JONES LPN
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
[2020-01-23 14:46] VITALS: BP 118/75
--- NOTE | 2020-01-23 18:22 | NUR ---
PT STATES SHE WILL RETURN TO THE NH AND MAY NEED LONGER IV ACCESS. RECOMMENDED A TICC OR PORT OVER A PICC OR ML DUE TO PT NEEDING TO MOVE SELF WITH ARMS SHE IS A BILAT BKA AND PARAPLEGIA. WELL HER [facility] ADMITS AND FAILED PERIPHERAL LINES.
--- NOTE | 2020-01-23 20:13 | NUR ---
ASSUMED PT CARE THIS AM. PT VITAL SIGNS STABLE, A&OX4. PT TURNED EVERY TWO HOURS FOR THE FIRST HALF OF THE SHIFT, AND THEN REFUSED Q 2 TURNS THE LAST 6 HOURS. PT EDUCATED ON IMPORTANCE OF TURNING TO PREVENT PRESSURE SORES, PATIENT VERBALIZED UNDERSTANDING. PT ON ROOM AIR. PT HAD IV TEAM PLACE AN IV IN HER LEFT UPPER ARM AND IV IN THE RAC WAS DISCONTINUED. PT RECEIVED PAIN MEDICATION FOR LOWER BACK PAIN THROUGHOUT SHIFT AND PAIN WAS PARTIALLY MANAGED THROUGH MEDS. PT STUMPS WERE ELEVATED, AND PATIENT WAS PUT ON A LOW AIRLOSS BED. PT PLACED ON CONTACT ISOLATION PER KAVIN SERRA. POC FOLLOWED, WITH NO SIGNS OR VERBALIZATIONS OPF DISTRESS. ENDORSED WOUND CARE TO NIGHT NURSE.
[2020-01-23 20:16] VITALS: BP 106/69
--- NOTE | 2020-01-24 05:36 | NUR ---
Assumed pt care at 1900, A/OX4,VSS. C/o pain to lower back,medicated per EMAR with relief reported,pt refuses to reposition every 2 hrs and states she's comfortable on her back;on a RAFAT.Dsg to mercedes ischium changed w/o any problems. Suprapubic catheter/colostomy intact and patent. IV in place on LUE patent ABTs infusing. Fall precautions in place,resting w/o distress.
[2020-01-24 07:14] VITALS: BP 115/77
--- NOTE | 2020-01-24 11:45 | NUR ---
I have reviewed the student's documentation.
--- NOTE | 2020-01-24 13:04 | NUR ---
CARE TEAM INDICATED THAT PT WILL LIKELY BE MEDICALLY STABLE TO DC TO [facility] TOMORROW. PT TO SWITCH TO [facility]. PT TO HAVE SUPRAPUBIC CATHETER REPLACED. PRIOR TO DC. CM NOTIFIED LIAISON AT [facility] [place]. CM TO FOLLOW INDICATED WITH DC PLANNING.
[2020-01-24] MEDS ORDERED: MINOCYCLINE HC100 M2 PO (15:02)
--- NOTE | 2020-01-24 15:14 | NUR ---
PT CARE ASSUMED AT 0700, PT ALERT AND ORIENTED X4, DENIES CHEST PAIN, NAUSEA AND VOMITTING. PT IS ON ROOM AIR, NO SIGNS OF DISTRESS NOTED. WOUND CARE DRESSING CHANGED, AND PICTURES TAKEN FOR POSSIBLE DISCHARGE TODAY. PT REFUSE TO BE REPOSITIONED, EDUCATION REINFORCED. VITAL SIGNS STABLE AND WITHIN NORMAL LIMITS. CALL AND TABLE WITHIN REACH. BED AT LOWEST LEVEL WITH ALARM ON.
--- NOTE | 2020-01-24 15:31 | NUR ---
CARE TEAM INDICATED THAT PT IS MEDICALLY STABLE TO DISCHARGE TO [facility] TODAY. PT WAS SWITCHED TO [facility]. PT'S COVID TEST IS NEGATIVE FROM 01/23/20. ORDERS TO BE FAXED TO FACILITY. REPORT TO BE CALLED TO . [facility] ARRANGED FOR [phone]. PT IS AWARE AND AGREEABLE. SHE INDICATED SHE WOULD HAVE FAMILY BRING WC TO FACILITY THIS EVENING. CHART COPY MADE. NO OTHER CM INTERVENTION INDICATED. CASE CLOSED.
--- NOTE | 2020-01-24 17:54 | NUR ---
1600 DISCHARGE ORDERS IN, WORKING ON PT DISCHARGE. SUPRAPUBIC CATHETER CHANGED PER DR. JUAREZ ORDERS. 1750 PT DISCHARGED BACK TO [facility]. CHART NOTES AND D/C INSTRUCTIONS PAPERWORK GIVEN TO TRANSPORTER. 1856 CALLED KALEIGH HINTON RN AT [facility]
== END 2020-01-24 18:09 | DRG 698 ==
LOC: ER 15:05 → EROBS 17:40 → 3W 17:40 → 4W 01-21 17:54
PROVIDERS: Nurse Practitioner; ADMIT Internal Medicine; ATTEND Internal Medicine
DX: T83.518A Infection and inflammatory reaction due to other urinary catheter, initial encounter (principal); A41.9 Sepsis, unspecified organism; L89.314 Pressure ulcer of right buttock, stage 4; L89.324 Pressure ulcer of left buttock, stage 4; E43 Unspecified severe protein-calorie malnutrition; N39.0 Urinary tract infection, site not specified; G82.20 Paraplegia, unspecified; M86.18 Other acute osteomyelitis, other site; M86.8X8 Other osteomyelitis, other site; L89.209 Pressure ulcer of unspecified hip, unspecified stage; L89.159 Pressure ulcer of sacral region, unspecified stage; J45.909 Unspecified asthma, uncomplicated; F17.210 Nicotine dependence, cigarettes, uncomplicated; E66.01 Morbid (severe) obesity due to excess calories; F32.9 Major depressive disorder, single episode, unspecified; G89.4 Chronic pain syndrome; Y73.8 Miscellaneous gastroenterology and urology devices associated with adverse incidents, not elsewhere classified; Z20.828 Contact with and (suspected) exposure to other viral communicable diseases; Z89.611 Acquired absence of right leg above knee; Z93.3 Colostomy status; Z79.01 Long term (current) use of anticoagulants; Z79.899 Other long term (current) drug therapy; Z88.1 Allergy status to other antibiotic agents; Z88.8 Allergy status to other drugs, medicaments and biological substances; Z68.31 Body mass index [BMI] 31.0-31.9, adult; Z91.19 Patient's noncompliance with other medical treatment and regimen; Z74.01 Bed confinement status; Y92.89 Other specified places as the place of occurrence of the external cause
CPT/HCPCS: 10040; 10879

== ENCOUNTER 2020-04-28 10:14 | Emergency (ER) | payer OTHER ==
[~2020-04-28] VITALS: Ht 149.9 cm; Wt 77.1 kg
[2020-04-28] MEDS ORDERED: ZINC SULFATE220 MG PO (10:25)
[2020-04-28 10:37] LABS: URINE BILIRUBIN NEGATIVE (Negative); URINE BLOOD 1+ (Negative); URINE CLARITY SL CLOUDY; URINE COLOR YELLOW; URINE GLUCOSE-RANDOM* 3+ (Negative); URINE KETONES 2+ (Negative); URINE LEUKOCYTES-REFLEX TRACE (Negative); URINE NITRITE-REFLEX NEGATIVE (Negative); URINE PROTEIN (DIPSTICK) 1+ (Negative); URINE UROBILINOGEN 0.2 E.U./dl (0.2-1.0)
[2020-04-28 10:43] LABS: HEMATOCRIT 38.3 % (37.0-47.0); HEMOGLOBIN 12.3 gm/dL (12.0-15.0); MCHC 32.2 g/dL (28.0-37.0); MCV 83.7 fL (80.0-100.0); RBC 4.58 mil/uL (4.20-5.00); RDW 15.8 % (10.5-14.5); WBC 5.7 thou/uL (4.0-11.0)
[2020-04-28 10:47] LABS: CASTS None Seen /LPF (None Seen); SQUAMOUS 4-10 Moderate /LPF (0-3)
[2020-04-28 10:48] LABS: MUCUS 0-3 Light strn/LPF (None Seen)
[2020-04-28 10:49] LABS: BACTERIA-REFLEX 1-9 Few /HPF (None Seen); CRYSTALS None Seen /LPF (None Seen); YEAST-REFLEX Present (None Seen)
[2020-04-28 10:50] LABS: CALCIUM 9.1 mg/dL (8.5-10.1); CREATININE 0.6 mg/dL (0.6-1.0); POTASSIUM 3.7 mmol/L (3.5-5.1)
[2020-04-28 10:51] LABS: URINE RBC 0-2 Rare /HPF (0-2)
[2020-04-28 10:56] LABS: ALBUMIN 3.2 g/dL (3.4-5.0); DIRECT BILIRUBIN 0.1 mg/dL (<0.1-0.2); TOTAL BILIRUBIN 0.5 mg/dL (0.2-1.0); TOTAL PROTEIN 8.7 g/dL (6.4-8.2)
[2020-04-28] MEDS ORDERED: CIPROFLOXACIN500 M1 PO (14:03)
[2020-04-28 15:09] VITALS: BP 115/77
== END 2020-04-28 15:09 | disposition short-term general hospital (02) ==
LOC: ER 10:14
PROVIDERS: Emergency Medicine
DX: N39.0 Urinary tract infection, site not specified (principal); J45.909 Unspecified asthma, uncomplicated; F32.9 Major depressive disorder, single episode, unspecified; F17.210 Nicotine dependence, cigarettes, uncomplicated; Z86.14 Personal history of Methicillin resistant Staphylococcus aureus infection; Z93.3 Colostomy status; Z79.899 Other long term (current) drug therapy; Z88.8 Allergy status to other drugs, medicaments and biological substances; Z88.1 Allergy status to other antibiotic agents